=== PATIENT | female | born 1960 | race Caucasian/White ===

== ENCOUNTER → 2017-12-03 14:23 | Outpatient (CLI) | payer OTHER, MEDICARE, SELFPAY ==
--- NOTE | 2017-12-03 14:26 | DI.RAD.S_ITS ---
PROCEDURE: XR FOOT RT MIN 3V INDICATIONS: 56 year-old female with right foot and ankle injury on stairs. TECHNIQUE: 3 views of the foot were acquired. COMPARISON: None. FINDINGS: Bones: No fractures or dislocations. No suspicious bony lesions. Soft tissues: No tibiotalar joint effusion. Achilles tendon appears normal. IMPRESSION: No acute bony injuries of the right foot. Dictated by: Trip Bauer M.D. on 12/03/2017 at 14:48 Approved by: Trip Bauer M.D. on 12/03/2017 at 14:49
--- NOTE | 2017-12-03 14:26 | DI.RAD.S_ITS ---
PROCEDURE: XR ANKLE RT MIN 3V INDICATIONS: 56 year-old female with right ankle and foot injury on stairs. TECHNIQUE: 3 views of the ankle were acquired. COMPARISON: None. FINDINGS: Bones: No fractures or dislocations. Ankle mortise is normally aligned. No suspicious bony lesions. Soft tissues: No tibiotalar joint effusion. Achilles tendon appears normal. IMPRESSION: No acute bony injuries of the right ankle. Dictated by: Trip Bauer M.D. on 12/03/2017 at 14:47 Approved by: Trip Bauer M.D. on 12/03/2017 at 14:48
== END ==
PROVIDERS: Family Provider Physician Assistant; PCP Physician Assistant; Visit Provider Physician Assistant
DX: S99.911A Unspecified injury of right ankle, initial encounter (principal); S99.921A Unspecified injury of right foot, initial encounter; M79.671 Pain in right foot
CPT/HCPCS: 73610; 73630

== ENCOUNTER → 2017-12-29 16:48 | Outpatient (CLI) | payer OTHER, MEDICARE, SELFPAY ==
--- NOTE | 2017-12-29 17:03 | DI.MRI.S_ITS ---
PROCEDURE: MR FOOT RT WO CON INDICATIONS: Right foot injury/ pain TECHNIQUE: Noncontrast sagittal T1 spin echo and T2 fast spin echo with fat saturation, long-axis T1 spin echo and T2 fast spin echo with fat saturation, short-axis T1 spin echo and T2 fast spin echo with fat saturation through the forefoot. COMPARISON: None. FINDINGS: Image quality: Excellent. Bones and joints: There are nondisplaced radiographically occult fractures of the medial and lateral cuneiform. There is mild adjacent soft tissue edema. Marrow contusion of the base of the first metatarsal Soft tissues: Extensor digitorum longus tenosynovitis, and adjacent dorsal forefoot subcutaneous soft tissue swelling. The flexor tendons appear intact. IMPRESSION: Nondisplaced fractures of the medial and lateral cuneiform. Probable marrow contusion at the base of the first metatarsal, although if clinically indicated, CT foot could be performed to evaluate for additional subtle fractures. Extensor digitorum longus tenosynovitis, with adjacent dorsal forefoot subcutaneous soft tissue edema. Findings were personally telephoned to Deb Oakes, covering for the referring clinician Nerissa Childs on 12/30/17. Dictated by: Ariel Gonzalez M.D. on 12/30/2017 at 9:24 Approved by: Ariel Gonzalez M.D. on 12/30/2017 at 9:32
--- NOTE | 2017-12-29 17:03 | DI.MRI.S_ITS ---
PROCEDURE: MR ANKLE RT WO CON INDICATIONS: Right ankle injury TECHNIQUE: Noncontrast sagittal T1 spin echo and T2 fast spin echo with fat saturation, axial proton density fast spin echo and T2 fast spin echo with fat saturation, coronal T1 spin echo and T2 fast spin echo with fat saturation through the ankle/hindfoot. COMPARISON: [facility], CR, XR FOOT RT MIN 3V, 12/03/2017, 14:26. FINDINGS: Image quality: Excellent. Bones and joints: Radiographically occult nondisplaced fractures of the medial and lateral cuneiform, image 9 series 4, image 16 series 4. No hindfoot coalitions. No osteochondral injuries of the talar dome. There is subchondral marrow cystic change/edema involving the tibial plafond image 23 series data however indeterminate age. No pathologic joint effusions. Medial structures: The posterior tibialis, flexor digitorum longus, and flexor hallucis longus tendons are intact. There is mild fluid adjacent to the posterior tibialis tendon. The posterior tibial neurovascular bundle appears normal within the tarsal tunnel, without extrinsic mass effect. The deep layer (anterior and posterior tibiotalar ligaments) and superficial layer (tibionavicular, tibiospring, and tibiocalcaneal ligaments) of the deltoid ligament appear normal. The spring ligament components (superomedial calcaneonavicular, medioplantar oblique calcaneonavicular, and inferoplantar longitudinal ligaments) are intact. Lateral structures: The anterior talofibular ligament appears minimally thickened with adjacent soft tissue edema raising possibility of low-grade sprain. The calcaneofibular, and posterior talofibular ligaments appear intact. More superiorly, the anterior and posterior tibiofibular ligaments appear intact, as is the intermalleolar ligament. The tibiofibular syndesmosis is normal in width at 2 mm or less. The peroneus longus and brevis tendons demonstrate normal location and morphology. Adjacent bony peroneal tubercle and retrotrochlear prominence are normal in size. The sinus tarsi demonstrates normal fatty signal, without edema, fibrosis, or cyst formation. Visualized sinus tarsi components (cervical ligament, interosseous talocalcaneal ligament, roots of the inferior extensor retinaculum) appear normal. The calcaneonavicular and calcaneocuboid components of the bifurcate ligament appear intact. The dorsal calcaneocuboid ligament appears intact. Anterior structures: The tibialis anterior, extensor hallucis longus, and extensor digitorum longus tendons appear intact. There is fluid adjacent to the extensor digitorum longus tendon in keeping with tenosynovitis. The dorsal talonavicular ligament appears intact. Posterior and plantar structures: Achilles tendon is intact. Medial and lateral bands of the plantar fascia are of normal thickness. IMPRESSION: Nondisplaced fractures of the medial and lateral cuneiform. Posterior tibialis and extensor digitorum longus tenosynovitis. Low-grade sprain of the anterior talofibular ligament. Dictated by: Ariel Gonzalez M.D. on 12/30/2017 at 8:32 Approved by: Ariel Gonzalez M.D. on 12/30/2017 at 9:32
== END ==
PROVIDERS: Family Provider Physician Assistant; PCP Physician Assistant; Visit Provider Physician Assistant
DX: M79.671 Pain in right foot (principal); S92.224A Nondisplaced fracture of lateral cuneiform of right foot, initial encounter for closed fracture; S92.244A Nondisplaced fracture of medial cuneiform of right foot, initial encounter for closed fracture; S93.491A Sprain of other ligament of right ankle, initial encounter
CPT/HCPCS: 73718; 73721

== ENCOUNTER → 2018-01-06 12:15 | Outpatient (CLI) | payer OTHER, MEDICARE, SELFPAY ==
--- NOTE | 2018-01-06 12:43 | DI.CT.S_ITS ---
PROCEDURE: CT LE RT WO CON INDICATIONS: rt foot sprain, prior MR scanning showing nondisplaced fractures involving the first and third cuneiform bones. TECHNIQUE: Noncontrast 1-1.5 mm axial sections acquired from above the tibiotalar joint to the bottom of the calcaneus, with coronal and sagittal reformats. COMPARISON: [facility], MR, MR FOOT RT WO CON, 12/29/2017, 18:03. FINDINGS: Image quality: Excellent. Bones: Mild osteopenia. Mild degenerative osteoarthritic change at the first MTP joint and the tarsal-metatarsal articulations. At the lateral plantar aspect of the distal first tarsal bone there is a sharply demarcated lucency that appears angular, extending to the cortical surface, and represents the previously identified nondisplaced fracture of the first tarsal bone in that area. Fracture margin blurring indicates healing in this area, and a similar healing appears to have occurred at the third metatarsal bone where the fracture plane can no longer be discretely identified (but was visible during prior MR scanning 12/29/17). Significant displacement of osseous margins and is not associated in these areas or elsewhere. No adjacent hematoma is found. Soft tissues: No ligamentous rupture identified. Normal alignment maintained, and no coalition is found. IMPRESSION: Nondisplaced fracture appears present at the plantar lateral border of the distal first tarsal bone, subacute in this clinical circumstance. The previously identified third tarsal bone fracture seen 12/29/17 by MR scanning can no longer be discretely identified and oriented the fracture margins indicates mild interval healing. No new injury is found, no previously in injury is identified.. Dictated by: Johny Yee M.D. on 01/06/2018 at 16:34 Approved by: Johny Yee M.D. on 01/06/2018 at 16:44
== END ==
PROVIDERS: Family Provider Physician Assistant; PCP Physician Assistant; Visit Provider Family Medicine
DX: S92.201A Fracture of unspecified tarsal bone(s) of right foot, initial encounter for closed fracture (principal); S93.601A Unspecified sprain of right foot, initial encounter; M54.12 Radiculopathy, cervical region; M54.16 Radiculopathy, lumbar region; M54.10 Radiculopathy, site unspecified
CPT/HCPCS: 73700

== ENCOUNTER → 2018-05-19 20:04 | Outpatient (CLI) | payer OTHER, MEDICARE, SELFPAY | PROVIDERS: PCP Family Medicine; Visit Provider Orthopaedic Surgery Foot and Ankle Surgery | DX: S92.224D Nondisplaced fracture of lateral cuneiform of right foot, subsequent encounter for fracture with routine healing (principal); Z53.9 Procedure and treatment not carried out, unspecified reason ==

== ENCOUNTER → 2018-05-25 11:21 | Outpatient (CLI) | payer OTHER, MEDICARE, SELFPAY ==
--- NOTE | 2018-05-25 | DI.MRI.S_ITS ---
PROCEDURE: MR ANKLE RT WO CON INDICATIONS: NONDISPLACED FRACTURE TECHNIQUE: Noncontrast sagittal T1 spin echo and T2 fast spin echo with fat saturation, axial proton density fast spin echo and T2 fast spin echo with fat saturation, coronal T1 spin echo and T2 fast spin echo with fat saturation through the ankle/hindfoot. COMPARISON: [facility] [place], CR, XR FOOT 3+ VIEWS RIGHT, 05/17/2018, 10:18. [facility] [place], CR, XR FOOT 3+ VIEWS RIGHT, 03/11/2018, 12:58. [facility], CR, XR FOOT 3 VIEWS WEIGHT BEARING RIGHT, 02/03/2018, 11:30. [facility] [place], CR, XR FOOT 3 VIEWS WEIGHT BEARING RIGHT, 01/07/2018, 11:07. [facility], CT, CT LE RT WO CON, 01/06/2018, 12:24. [facility], MR, MR FOOT RT WO CON, 12/29/2017, 18:03. [facility], MR, MR ANKLE RT WO CON, 12/29/2017, 17:31. FINDINGS: Image quality: Diagnostic. Bones and joints: No acute fracture, dislocation, or suspicious osseous lesion is identified involving the osseous structures of the midfoot or hindfoot. No stress fractures are identified. Ankle mortise is well-maintained. No osteochondral fragments are identified. However, defect of the head articular cartilage along the central aspect of the mid and tibial plafond does identify with degenerative/reactive marrow changes. There are mild degenerative changes of the talonavicular joint. No significant joint effusions are evident. Medial structures: The deltoid ligament is intact. There is slight increased signal about the deltoid ligament. The spring ligament is within normal limits. The tibialis posterior, flexor digitorum longus, and flexor hallucis longus tendons are intact. There is a fluid contained within the tibialis posterior tendon sheath. The posterior tibial nerve through the region of the tarsal tunnel appears to be within normal limits. Lateral structures: The anterior and posterior distal tibiofibular ligaments are intact. The anterior and posterior talofibular ligaments are also intact. The calcaneofibular ligament is intact. There is flattening of the peroneus brevis tendon along the posterior margin of the lateral malleolus with a possible short segment longitudinal split tear near the tip of the lateral malleolus. There is slight increased signal evident involving the peroneus longus tendon without significant tearing. Anterior structures: The tibialis anterior, extensor hallucis longus, and extensor digitorum longus tendons appear intact. Posterior and plantar structures: Achilles tendon is intact. However, there is mild thickening along the proximal to midaspect of the Achilles tendon with slight increased signal present. Medial and lateral bands of the plantar fascia are of normal thickness. IMPRESSION: 1. No fractures are evident involving the right midfoot or hindfoot. 2. Mild degenerative changes of the tibiotalar and talonavicular joints. No osteochondral fragments. 3. Possible deltoid ligament sprain. 4. Mild tibialis posterior tenosynovitis. 5. Possible short segment longitudinal split tear of the peroneus brevis tendon at the tip of lateral malleolus with corresponding mild tendinopathy. The results in mild peroneus longus tendinopathy. 6. Mild Achilles tendinopathy. Dictated by: Harjit Ching M.D. on 05/25/2018 at 13:42 Approved by: Harjit Ching M.D. on 05/25/2018 at 13:46
== END ==
PROVIDERS: PCP Family Medicine; Visit Provider Orthopaedic Surgery Foot and Ankle Surgery
DX: S92.224A Nondisplaced fracture of lateral cuneiform of right foot, initial encounter for closed fracture (principal); M19.071 Primary osteoarthritis, right ankle and foot; M65.862 Other synovitis and tenosynovitis, left lower leg
CPT/HCPCS: 73721

== ENCOUNTER → 2018-10-14 12:07 | Outpatient (CLI) | payer OTHER, MEDICARE, SELFPAY ==
--- NOTE | 2018-10-14 12:10 | DI.RAD.S_ITS ---
PROCEDURE: XR CERVICAL SPINE 4V OR 5V INDICATIONS: Eval TECHNIQUE: 5 views of the cervical spine acquired. COMPARISON: None. FINDINGS: Bones: No fractures or dislocations to the C6 level. C4-C6 ACDF appears in expected postoperative alignment. No evidence of hardware loosening. Multilevel facet arthropathy. Mild narrowing of the C3-C4 disc space. There is also moderate C6-C7 disc degeneration. On the right, mild bony foraminal narrowing primarily at C6-C7, and C3-C4 On the left, mild C6-C7 bony foraminal narrowing. IMPRESSION: Expected postoperative alignment of C4-C6 ACDF. Mild C3-C4 disc degeneration. Moderate C6-C7 disc degeneration. Diffuse facet arthropathy. Dictated by: Ariel Gonzalez M.D. on 10/14/2018 at 14:47 Approved by: Ariel Gonzalez M.D. on 10/14/2018 at 14:49
== END ==
PROVIDERS: PCP Family Medicine; Visit Provider Physical Medicine & Rehabilitation
DX: M50.11 Cervical disc disorder with radiculopathy, high cervical region (principal); M47.22 Other spondylosis with radiculopathy, cervical region; M48.02 Spinal stenosis, cervical region; Z98.1 Arthrodesis status
CPT/HCPCS: 72050; 99214

== ENCOUNTER → 2018-10-17 19:25 | Outpatient (CLI) | payer OTHER, MEDICARE, SELFPAY ==
--- NOTE | 2018-10-17 19:29 | DI.MRI.S_ITS ---
PROCEDURE: MR CERVICAL SPINE WO CON INDICATIONS: NECK PAIN TECHNIQUE: Noncontrast sagittal T1 spin echo and T2 fast spin echo, sagittal STIR, foraminal oblique sagittal T2 fast spin echo, and axial gradient echo or T2 fast spin echo through the cervical spine. COMPARISON: [facility], CR, XR CERVICAL SPINE 4V OR 5V, 10/14/2018, 12:16. FINDINGS: Image quality: Excellent. Alignment and Curvature: There is normal bony alignment. Remote ACDF at C4-C6 with anterior plate and screw fixation and interbody bone graft material. Interbody fusion is successful. There is no evidence of hardware failure or loosening. Bone Marrow: Marrow demonstrates normal overall signal. Spinal Cord: Visualized spinal cord has normal size and signal. No cerebellar tonsillar herniation. Paraspinous Soft Tissues: No paravertebral masses. Prevertebral soft tissues are normal in thickness. C2-C3: No canal stenosis or foraminal stenosis. Bilateral facet hypertrophy, right greater than left. C3-C4: Diffuse posterior disc less osteophyte. Axial image over estimates canal stenosis secondary to metal artifact. Diffuse posterior disc plus osteophyte. Canal stenosis is likely mild to moderate. Bilateral uncovertebral joint hypertrophy results in severe left foraminal narrowing and moderate right foraminal narrowing. Bilateral facet hypertrophy. C4-C5: Fusion. No canal stenosis or significant foraminal stenosis. C5-C6: Fusion. No canal stenosis or significant foraminal stenosis. C6-C7: Mild probable canal stenosis. Severe right foraminal narrowing. Moderate left foraminal narrowing. C7-T1: No canal stenosis or foraminal stenosis. IMPRESSION: 1. Remote ACDF at C4-C6 2. At C3-C4, there is canal stenosis which is likely mild to moderate. There is severe left foraminal narrowing and moderate right foraminal narrowing. 3. At C6-C7, there is probable mild canal stenosis. There is severe right foraminal narrowing and moderate left foraminal narrowing. Dictated by: Van Oneal M.D. on 10/18/2018 at 13:11 Approved by: Van Oneal M.D. on 10/18/2018 at 15:21
== END ==
PROVIDERS: PCP Family Medicine; Visit Provider Physical Medicine & Rehabilitation
DX: M54.12 Radiculopathy, cervical region (principal); M48.02 Spinal stenosis, cervical region; Z98.1 Arthrodesis status
CPT/HCPCS: 72141

== ENCOUNTER → 2019-01-10 11:41 | Outpatient (CLI) | payer OTHER, MEDICARE, SELFPAY ==
[2019-01-10 12:04] LABS: RBC Urine None Seen (0-5/HPF)
[2019-01-10 12:31] LABS: Add Manual Diff / Slide Review NO; Basophils Absolute Auto 0 /uL (0-100); Basophils Percent Auto 0.6 % (0-2); Eosinophils Absolute Auto 400 /uL (0-450); Eosinophils Percent Auto 5.1 % (2-4); Hematocrit 41.4 % (36-46); Hemoglobin 14.3 g/dL (12.0-16.0); Lymphocytes Absolute Auto 2000 /uL (1100-4500); Lymphocytes Percent Auto 27.1 % (25-40); Mean Corpuscular HGB Conc 34.5 % (30-36); Mean Corpuscular Hemoglobin 29.9 PG (26-34); Mean Corpuscular Volume 86.8 fL (80-100); Monocytes Absolute Auto 500 /uL (0-900); Neutrophils Absolute Auto 4400 /uL (1500-7000); Neutrophils Percent Auto 60.2 % (50-75); Platelet Count 212 X10^3/uL (150-400); Red Blood Cell Count 4.76 X10^6/uL (4.0-5.2); Red Cell Distribution Width 12.7 % (11.6-14.8); White Blood Cell Count 7.3 X10^3/uL (4.5-11.0)
[2019-01-10 12:40] LABS: Alanine Aminotransferase 32 IU/L (9-52); Albumin 4.1 g/dL (3.5-5.0); Albumin Globulin Ratio 1.5 (1.0-2.8); Alkaline Phosphatase 85 U/L (38-126); Aspartate Aminotransferase 28 IU/L (14-36); BUN Creatinine Ratio 25.7 (6-22); Bilirubin Total 0.5 mg/dL (0.2-1.3); Blood Urea Nitrogen 18 mg/dL (7-17); Calcium 10.1 mg/dL (8.4-10.2); Carbon Dioxide 30 mmol/L (22-32); Chloride 102 mmol/L (98-107); Cholesterol 236 mg/dL (140-199); Estimated Glomerular Filt Rate > 60.0 mL/min (>60); Globulin 2.7 g/dL (1.7-4.1); Glucose 98 mg/dL (70-100); HDL Cholesterol 53 mg/dL (40-60); HEMOLYSIS < 15 (0-50); Potassium 3.3 mmol/L (3.4-5.1); Sodium 140 mmol/L (137-145); Total Protein 6.8 g/dL (6.3-8.2); Triglycerides 416 mg/dL (35-150)
[2019-01-10 12:49] LABS: Appearance Urine UA CLEAR; Bilirubin Urine UA NEGATIVE (NEGATIVE); Color Urine UA YELLOW; Glucose Urine UA NEGATIVE (Negative); Ketones Urine UA NEGATIVE (NEGATIVE); Leukocyte Esterase Urine UA NEGATIVE (NEGATIVE); Nitrite Urine UA NEGATIVE (Negative); Occult Blood Urine UA NEGATIVE (Negative); Protein Urine UA NEGATIVE (Negative); Urobilinogen Urine UA 0.2 E.U./dL (0.2); pH Urine UA 6.5 (4.5-8.0)
[2019-01-10 13:06] LABS: Amorphous Sediment Urine 1+; Bacteria Urine Occasional (0-1); Culture Indicated Urine Cult Not Indicated; Mucus Urine 2+ (Negative); Squamous Epithelial Cell Urine 0-1 /HPF (0-5/HPF); WBC Urine 0-1/HPF (0-5/HPF)
[2019-01-10 13:41] LABS: Thyroid Stimulating Hormone 3.05 uIU/mL (0.47-4.68)
== END ==
PROVIDERS: PCP Family Medicine; Visit Provider Family Medicine
DX: E78.00 Pure hypercholesterolemia, unspecified (principal); I10 Essential (primary) hypertension; Z00.00 Encounter for general adult medical examination without abnormal findings
CPT/HCPCS: 36415; 80053; 80061; 81001; 84443; 85025

== ENCOUNTER 2019-01-19 09:50 | Outpatient (CLI) | payer OTHER, MEDICARE, SELFPAY ==
[2019-01-19] VITALS (12 sets, daily range): BP systolic 106–149; BP diastolic 65–104; PULSE 66–83; RESP 16–20; TEMP 36.2; O2SAT 96–100
--- NOTE | 2019-01-19 09:53 | DI.RAD.S_ITS ---
PROCEDURE: PAIN C/T INTERLAMINAR INJECT INDICATIONS: CERVICAL STENOSIS FINDINGS: Fluoroscopic spot filming was performed to verify placement of spinal needles at the C6-C7 level(s), as labeled on the films. Appropriate location(s) of the needle tip(s) was confirmed by injection of iodinated contrast. Dictated by: Ariel Gonzalez M.D. on 01/19/2019 at 12:52 Approved by: Ariel Gonzalez M.D. on 01/19/2019 at 12:53
[2019-01-19] MEDS: fentaNYL 100 MCG/2 ML INJ 50 MCG IV (10:30)
[2019-01-19] MEDS: MIDAZOLAM 5 MG/5 ML VIAL IV (10:30)
[2019-01-19] MEDS: DEXAMETHASONE 10 MG/ML VIAL 30 MG INJ (10:39)
[2019-01-19] MEDS: LIDOCAINE 1% 20 ML INJ 5 ML INJ (10:39)
[2019-01-19] MEDS: IOPAMIDOL 15 ML VIAL 3 ML INJ (10:39)
--- NOTE | 2019-01-19 10:43 | PC.NURSE ---
pt tolerated procedure well. Able to get off table with 2 person standby assist. Transferred pt via wheelchair to pre procedure room for continued monitoring with Prudencio LAZAR.
--- NOTE | 2019-01-19 10:45 | P.PCN_ITS ---
Procedures Date/Time Date of procedure: 01/19/19 Time of procedure: 10:43 General Procedure description: PREOP DIAGNOSIS 1. CERVICAL STENOSIS, 2. CERVICAL HNP WITH UPPER EXTREMITY RADICULAR FEATURES, POST OP DIAGNOSIS 1. CERVICAL STENOSIS, 2. CERVICAL HNP WITH UPPER EXTREMITY RADICULAR FEATURES, PROCEDURES 1. FLUORSCOPICALLY GUIDED CONTRAST CONTROLLED INTERLAMINAR EPIDURAL STEROID INJECTION - C6/7 TL JOSE LUIS PHYSICIAN: Soy Tello, INDICATIONS Lilia is referred by Aixa Olsen for treatment of Cervical HNP with Upper Extremity Paresthesias. FINDINGS Cervical Stenosis due to disc deterioration and nerve root irritation and nerve root irritation DESCRIPTION OF PROCEDURE Fluoroscopically guided, contrast-controlled C6/7 translaminar epidural steroid injection with conscious sedation. Following review of allergy and review of potential side effects and complications, including, but not necessarily limited to, infection, allergic reaction, local tissue breakdown, temporary as well as permanent nerve injury, stroke, paralysis, and possible , the patient indicated that patient understood and agreed to proceed. An informed consent document was signed by the patient, witnessed by a nurse, and placed in the patient's chart. Additionally, other treatment options including modalities, medications, and physical therapy were reviewed with the patient. After review of previous anaesthesic history and IV conscious sedation the patient was deemed safe to proceed with todays procedure with IV conscious sedation as ASA class II designation. Safety time-out was performed to confirm patient ID, procedure to be performed and site of procedure. IV sedation was accomplished with a combination of 2mg of Versed and 50 mg of fentanyl administered by the RN after DO order, titrated to patient comfort during the course of the procedure while the patient remained responsive to all verbal commands. In the prone position, following sterile prep and drape of the cervical region, the C6/7 translaminar space was identified fluoroscopically. The skin was anesthetized via a 25-gauge 1.5-inch needle with 1% lidocaine solution. At this point, a 25-gauge, 2.5-inch short bevel spinal needle was atraumatically intr oduced and advanced under fluoroscopic guidance into epidural space at the C6/7 translaminar space. Depth was confirmed on lateral view. Radiological data, including multiple fluoroscopic views of the cervical spine, reveal a spinal needle at the C6/7 translaminar space. Lateral views then show placement of the needle in the epidural space. Subsequent views show contrast material flowing superiorly and inferiorly in the epidural space. DSA fluoroscopy with live contrast injection, once again, confirmed no vascular or intrathecal uptake. At this point, using loss of resistance technique with saline and air, the epidural space was entered. Following negative aspiration, injection of approximately 1.5 cc of Isovue-200 with live fluoroscopy in the AP view confirmed epidural flow in the epidural space without vascular or intrathecal uptake observed. Subsequently, a test dose of 1 cc of 1% lidocaine solution was injected and patient was observed for two minutes without signs or symptoms of complications, including abdominal pain, shortness of breath, bilateral upper or lower extremity weakness, nausea and vomiting, prior to steroid injection. At this point, 3cc or 30mg of dexamethasone was then injected without incident. The patient tolerated the procedure well without signs or symptoms of complications prior to being transferred to the recovery area for further monitoring, The patient was then transferred to the recovery area where they were observed for an appropriate period of time after the injection. The patient reported a VAS score of 6 prior to the procedure and a post-procedure VAS of 0. Total Fluoroscopy Time: 37.0 seconds Total Conscious Time: 24min POST OP INSTRUCTIONS The patient was provided a Pain Log to continue to record their response to the target-specific procedure prior to follow-up visit with the referring provider. Additionally, specific post-injection care instructions and a contact number to our office were provided if concerns arise regarding possible complications associated with the procedure are suspected. Soy Tello DO Complications: none
== END 2019-01-19 11:25 ==
LOC: RAD 09:52
PROVIDERS: PCP Family Medicine; Visit Provider Physical Medicine & Rehabilitation
DX: M48.02 Spinal stenosis, cervical region (principal); M50.123 Cervical disc disorder at C6-C7 level with radiculopathy
CPT/HCPCS: 62321; 99152; J1100; J2250; J3010

== ENCOUNTER 2019-05-02 10:24 | Outpatient (CLI) | payer OTHER, MEDICARE, SELFPAY ==
[2019-05-02] VITALS (8 sets, daily range): BP systolic 116–138; BP diastolic 81–93; PULSE 82–93; RESP 16–18; TEMP 36.1; O2SAT 95–100
--- NOTE | 2019-05-02 10:27 | DI.RAD.S_ITS ---
PROCEDURE: PAIN C/T FACET INJ/BLK 1ST L INDICATIONS: SPINAL STENOSIS FINDINGS: Fluoroscopic spot filming was performed to verify placement of spinal needles at the C3-C4 level(s), as labeled on the films. Appropriate location(s) of the needle tip(s) was confirmed by injection of iodinated contrast. IMPRESSION: Fluoroscopy for pain management. Dictated by: Mya Hernandez M.D. on 05/02/2019 at 14:44 Approved by: Mya Hernandez M.D. on 05/02/2019 at 14:44
--- NOTE | 2019-05-02 11:03 | P.PCN_ITS ---
Procedures Date/Time Date of procedure: 05/02/19 Time of procedure: 11:03 General Procedure description: PREOP DIAGNOSIS 1. FACET ARTHROPATHY 2. AXIAL NECK PAIN POST OP DIAGNOSIS 1. FACET ARTHROPATHY 2. AXIAL NECK PAIN PROCEDURES 1. FLUOROSCOPICALLY GUIDED, CONTRAST-CONTROLLED RIGHT C3/4 FACET JOINT INJECTION WITH CONSCIOUS SEDATION PHYSICIAN: Soy Tello, DO INDICATIONS Lilia is referred by Dr. Kruse for treatment of Axial Neck Pain DESCRIPTION OF PROCEDURE Fluoroscopically guided, contrast-controlled right C3/4 facet joint injections with conscious sedation. Following review of allergy and review of potential side effects and complications, including, but not necessarily limited to, infection, allergic reaction, local tissue breakdown, stroke, temporary or permanent nerve injury and paralysis, the patient indicated that the patient understood and agreed to proceed. An informed consent document was signed by the patient, witnessed by a nurse, and placed in the patient's chart. Additionally, other treatment options including medications, modalities, and physical therapy were reviewed with the patient. After review of previous anaesthesic history and IV conscious sedation the patient was deemed safe to proceed with todays procedure with IV conscious sedation as ASA class II designation. Safety time-out was performed to confirm patient ID, procedure to be performed and site of procedure. IV sedation was accomplished with a combination of 3mg of Versed and 50mcg of Fentanyl was administered by the RN after DO order, titrated to patient comfort during the course of the procedure while the patient remained responsive to all verbal commands In the prone position, following sterile prep and drape of the cervical spine region, the posterior aspect of the right C3/4 facet joints were identified f luoroscopically. The skin was anesthetized via a 25-gauge 1.5-inch needle with 1% lidocaine solution into the corresponding facet joints. At this point, a 25- gauge 2.5-inch spinal needle was atraumatically introduced and advanced under fluoroscopic guidance into the corresponding facet joints. Following negative aspiration, injections of approximately 0.2-cc of Isovue 200 confirmed interarticular placement without vascular uptake. At this point, a total of 1cc including 0.5cc or 5mg of dexamethasone combined with 0.5cc of 1% lidocaine solution was injected without complication into each of the corresponding facet joints. The procedure tolerated the procedure well without signs or symptoms of complications prior to transfer to the recovery area continued monitoring without incident. The patient was then transferred to the recovery area where they were observed for an appropriate period of time after the injection. The patient reported a VAS score of 7 prior to the procedure and a post- procedure VAS of 0. Total Fluoroscopy Time: 20.5 seconds Total Conscious Sedation Time: 24 min POST OP INSTRUCTIONS They were provided a Pain Log to continue to record their response to the target-specific procedure prior to their follow-up visit with their referring physician. Additionally, specific post-injection care instructions and a contact number to our office were provided if concerns arise regarding possible complications associated with the procedure are suspected. Soy Tello, Complications: none
[2019-05-02] MEDS: fentaNYL 100 MCG/2 ML INJ 50 MCG IV (11:32)
[2019-05-02] MEDS: MIDAZOLAM 5 MG/5 ML VIAL IV (11:32)
[2019-05-02] MEDS: IOPAMIDOL 15 ML VIAL 3 ML INJ (11:42)
[2019-05-02] MEDS: BUPIVACAINE 0.5% (PF) VIAL 2 ML INJ (11:43)
[2019-05-02] MEDS: DEXAMETHASONE 10 MG/ML VIAL INJ (11:43)
--- NOTE | 2019-05-02 11:47 | PC.NURSE ---
ASSISTING PT OFF TABLE AND TRANSPORTING TO POST PROC AREA IN STABLE CONDITION. PASSING RN CARE OF PT OFF TO LA NENA Santoro RN.
--- NOTE | 2019-05-02 12:19 | PC.NURSE ---
Discharge note: Pateint arrive post procedure drowsy but awake and responding appropriately to verbal commands. VSS, O2 sat WNL on RA. tolerating po without nausea. Pain level at time of discharge 0/10. Mild weakness to lower extremities from sedation. Able to stand and transfer to wheelchair without difficulties. Discharge instructions given and explained to patient and son with good understanding. Discharged to home. WC to car at 1215.
== END 2019-05-02 12:15 ==
PROVIDERS: Family Provider Family Medicine; PCP Family Medicine; Visit Provider Physical Medicine & Rehabilitation
DX: M47.812 Spondylosis without myelopathy or radiculopathy, cervical region (principal); M54.2 Cervicalgia
CPT/HCPCS: 64490; 99152; J1100; J2250; J3010

== ENCOUNTER → 2019-05-22 12:57 | Outpatient (CLI) | payer OTHER, MEDICARE, SELFPAY ==
[2019-05-22 14:03] LABS: Alanine Aminotransferase 58 IU/L (<35); Albumin 4.3 g/dL (3.5-5.0); Albumin Globulin Ratio 1.9 (1.0-2.8); Alkaline Phosphatase 103 U/L (38-126); Aspartate Aminotransferase 47 IU/L (14-36); BUN Creatinine Ratio 22.5 (6-22); Bilirubin Total 0.6 mg/dL (0.2-1.3); Blood Urea Nitrogen 18 mg/dL (7-17); Calcium 9.8 mg/dL (8.4-10.2); Carbon Dioxide 28 mmol/L (22-32); Chloride 103 mmol/L (98-107); Cholesterol 180 mg/dL (140-199); Estimated Glomerular Filt Rate > 60.0 mL/min (>60); Globulin 2.3 g/dL (1.7-4.1); Glucose 109 mg/dL (70-100); HDL Cholesterol 55 mg/dL (40-60); HEMOLYSIS < 15 (0-50); LDL Cholesterol Calculated 78 mg/dL (<100); Potassium 3.7 mmol/L (3.4-5.1); Sodium 140 mmol/L (137-145); Total Protein 6.6 g/dL (6.3-8.2); Triglycerides 234 mg/dL (35-150)
== END ==
PROVIDERS: PCP Family Medicine; Visit Provider Family Medicine
DX: E78.5 Hyperlipidemia, unspecified (principal); I10 Essential (primary) hypertension
CPT/HCPCS: 36415; 80053; 80061

== ENCOUNTER 2019-05-23 12:40 | Emergency (ER) | payer OTHER, MEDICARE, SELFPAY ==
[2019-05-23 12:52] VITALS: BP 192/132; PULSE 92; RESP 18; TEMP 36.7; O2SAT 100; BMI 22.5
--- NOTE | 2019-05-23 13:05 | DI.RAD.S_ITS ---
PROCEDURE: XR CHEST 1V INDICATIONS: cough TECHNIQUE: One view of the chest was acquired. COMPARISON: [facility], , CHEST 2 VIEW, 05/18/2009, 10:00. FINDINGS: Surgical changes and devices: Right breast implant Lungs and pleura: Lungs are clear. No pleural effusions or pneumothorax. Mediastinum: Mediastinal contours appear normal. Heart size is normal. Bones and chest wall: No suspicious bony lesions. Overlying soft tissues appear unremarkable. IMPRESSION: No evidence acute pulmonary process. Dictated by: Van Oneal M.D. on 05/23/2019 at 13:51 Approved by: Van Oneal M.D. on 05/23/2019 at 13:52
[2019-05-23 13:16] LABS: Add Manual Diff / Slide Review NO; Basophils Absolute Auto 100 /uL (0-100); Basophils Percent Auto 0.9 % (0-2); Eosinophils Absolute Auto 500 /uL (0-450); Eosinophils Percent Auto 7.7 % (2-4); Hematocrit 42.6 % (36-46); Hemoglobin 14.9 g/dL (12.0-16.0); Lymphocytes Absolute Auto 1800 /uL (1100-4500); Lymphocytes Percent Auto 25.8 % (25-40); Mean Corpuscular HGB Conc 34.9 % (30-36); Mean Corpuscular Hemoglobin 30.4 PG (26-34); Mean Corpuscular Volume 87.2 fL (80-100); Monocytes Absolute Auto 500 /uL (0-900); Monocytes Percent Auto 7.1 % (3-14); Neutrophils Absolute Auto 4100 /uL (1500-7000); Neutrophils Percent Auto 58.5 % (50-75); Platelet Count 276 X10^3/uL (150-400); Red Blood Cell Count 4.89 X10^6/uL (4.0-5.2); Red Cell Distribution Width 12.6 % (11.6-14.8)
[2019-05-23 13:23] LABS: Alanine Aminotransferase 72 IU/L (<35); Albumin 4.8 g/dL (3.5-5.0); Albumin Globulin Ratio 1.7 (1.0-2.8); Alkaline Phosphatase 123 U/L (38-126); Aspartate Aminotransferase 78 IU/L (14-36); BUN Creatinine Ratio 24.3 (6-22); Bilirubin Total 0.7 mg/dL (0.2-1.3); Blood Urea Nitrogen 17 mg/dL (7-17); Calcium 10.2 mg/dL (8.4-10.2); Carbon Dioxide 29 mmol/L (22-32); Chloride 96 mmol/L (98-107); Creatine Kinase 71 U/L (30-135); Estimated Glomerular Filt Rate > 60.0 mL/min (>60); Globulin 2.8 g/dL (1.7-4.1); Glucose 110 mg/dL (70-100); HEMOLYSIS 30 (0-50); Lipase 268 U/L (23-300); Potassium 3.6 mmol/L (3.4-5.1); Sodium 135 mmol/L (137-145); Total Protein 7.6 g/dL (6.3-8.2)
[2019-05-23 13:30] VITALS: BP 154/122; PULSE 82; RESP 12; O2SAT 99
[2019-05-23 13:34] LABS: Troponin I < 0.012 ng/mL (0.01-0.034)
--- NOTE | 2019-05-23 13:36 | ED_ITS ---
HPI - General Adult General Chief complaint: Hypertension Stated complaint: high BP, states triple digits Time Seen by Provider: 05/23/19 12:52 Source: patient Mode of arrival: Ambulatory Limitations: no limitations History of Present Illness HPI narrative: Patient is a 58-year-old female sent in by her PCP for elevated blood pressure. She has actually noticed that her diastolic has been slightly elevated for a few weeks however today it is over 100. She has a slight headache but that is not abnormal for her she continues to have headaches fairly regularly due to a pinched nerves in her neck. She has no chest pain or heart palpitation shortness of breath nausea vomiting weakness numbness or tingling. She takes carvedilol, hydrochlorothiazide and losartan for blood pressure control. Related Data Home Medications Medication Instructions Recorded Confirmed atorvastatin 40 mg PO QPM 05/23/19 05/23/19 hydrochlorothiazide 25 mg PO DAILY 05/23/19 05/23/19 losartan 100 mg PO DAILY 05/23/19 05/23/19 trazodone 100 mg PO BEDTIME 05/23/19 05/23/19 Previous Rx's Medication Instructions Recorded carvedilol 6.25 mg tablet 6.25 mg PO BID #180 tab 12/19/18 Handicap parking sticker #1 ea 01/27/19 cyclobenzaprine 10 mg tablet 10 mg PO TID PRN #30 tab 01/31/19 albuterol sulfate 90 mcg/actuation 2 puff INHALATION Q4-6H PRN #6.7 02/21/19 aerosol inhaler gram lidocaine 5 % topical patch 1 patch TOP DAILY #30 each 03/01/19 venlafaxine 75 mg capsule,extended 225 mg PO DAILY #60 cap 04/14/19 release 24 hr oxycodone-acetaminophen 5 mg-325 1 tab PO BID PRN #60 tab 05/05/19 mg tablet diazepam 10 mg tablet 10 mg PO .COMPLEX PRN 7 Days #10 05/22/19 tab pregabalin 50 mg capsule 50 mg PO BID #60 cap 05/22/19 carvedilol [Coreg] 12.5 mg PO BID #60 tab 05/23/19 Allergies Allergy/AdvReac Type Severity Reaction Status Date / Time No Known Drug Allergies Allergy Verified 05/22/19 13:35 Review of Systems Review of Systems Narrative: GENERAL: Denies chills, fatigue, malaise, fever, sweats, travel HEENT: Denies sinus pain, ear pain, sore throat, difficulty swallowing, neck pain RESPIRATORY: Denies dyspnea, cough, wheezing, hemoptysis, sputum. CARDIOVASCULAR: Denies chest pain, palpitations, orthopnea, edema GASTROINTESTINAL: Denies nausea, vomiting, abdominal pain, diarrhea, constipation, melena. : Denies dysuria, frequency, incontinence, hematuria, urinary retention, flank pain. MUSCULOSKELETAL: Denies weakness, joint pain, or bony pain SKIN: No rash, no erythema, no pruritus NEUROLOGIC: Denies weakness, dizziness, headache, numbness, change in speech, confusion PSYCHIATRIC: No concerning psychosocial issues. 12 point review of systems is negative except for those stated above and HPI Patient History Medical History Depression (Chronic Unknown) Depression (Acute) Generalized anxiety disorder with panic attacks (Acute) Hyperlipemia (Chronic Unknown) Hypertension (Chronic Unknown) Post-traumatic stress disorder, chronic (Acute) Surgical History History of total abdominal hysterectomy and bilateral salpingo-oophorectomy (Resolved ~1992) Hx of neck surgery (Resolved Unknown) Family History Mother Hypertension Social History Smoking Status: Never smoker alcohol intake: current (Occasionally) substance use type: does not use alcohol intake frequency: 0-2 drinks per day Substance Use Type: does not use Exam Initial Vital Signs Initial Vital Signs: Vital Signs Temperature 98.1 F 05/23/19 12:52 Pulse Rate 92 H 05/23/19 12:52 Respiratory Rate 18 05/23/19 12:52 Blood Pressure 192/132 H 05/23/19 12:52 Pulse Oximetry 100 05/23/19 12:52 GENERAL: Well-appearing, well-nourished and in no acute distress. HEENT: Head atraumatic,EOMI, pupils reactive, face symmetric, moist mucous membranes CARDIOVASCULAR: Regular rate and rhythm without murmurs, rubs or gallops. RESPIRATORY: Breath sounds equal bilaterally, no wheezes rales or rhonchi. ABDOMEN: Soft, nontender. Normoactive bowel sounds all 4 quadrants. No guarding or rebound. : No CVA tenderness EXTREMITIES: Normal range of motion, no clubbing or edema. Neurovascularly intact NEUROLOGICAL: Alert and oriented x4.Normal gait and speech. SKIN: Warm, dry, no laceration, no petechiae, no rashes or lesions. Scores NIH Stroke Scale Level of Conciousness: Alert, keenly responsive Ask month/age: Answers both questions correctly. Open/close eyes, close hand: Performs both tasks correctly Best gaze horizontal: Normal Visual murrell: No visual loss Facial palsy: Normal symetrical movement Left arm drift: No drift for full 10 sec Right arm drift: No drift for full 10 sec Left leg drift: No drift for full 10 sec Right leg drift: No drift for full 10 sec Limb ataxia: Absent Sensory on face/arms/legs: Normal, no sensory loss Best language: No aphasia, normal Dysarthria: Normal Extinction or inattention: No abnormality Total NIH Stroke scale score: 0 Course Orders Ordered: ED Orders 05/23/19 13:02 Complete Blood Count AUTO DIFF Stat Comprehensive Metabolic Panel Stat Lipase Stat Troponin & CK Cardiac Panel Stat 05/23/19 13:05 XR chest 1V Stat 05/23/19 14:34 CT head/brain wo con Stat Discontinued Medications Amlodipine Besylate (Norvasc) 5 mg PO NOW ONE Stop: 05/23/19 13:44 Last Admin: 05/23/19 13:52 Dose: 5 mg Documented by: ALYSIA Ketorolac Tromethamine (Toradol) 15 mg IV NOW ONE Stop: 05/23/19 15:09 Last Admin: 05/23/19 15:13 Dose: 15 mg Documented by: BTBRIAN Consultations Consultation #1: Dr. Lujan-updated in patient's persistently elevated diastolic blood pressure recommends increasing Coreg. Time: 15:12 Vital Signs Vital signs: Vital Signs - 8 hr 05/23/19 12:52 05/23/19 13:30 05/23/19 14:00 Temperature 98.1 F Pulse Rate 92 H 82 82 Respiratory Rate 18 12 19 Blood Pressure 192/132 H Blood Pressure [Right Arm] 154/122 H 178/118 H Pulse Oximetry 100 99 98 05/23/19 15:00 Temperature Pulse Rate 90 Respiratory Rate 16 Blood Pressure Blood Pressure [Right Arm] 169/122 H Pulse Oximetry 100 Medical Decision Making Lab Data Lab results reviewed: Yes I reviewed the patient's lab results. Result diagrams: 05/23/19 13:02 05/23/19 13:02 Labs: Lab Results 05/23/19 05/23/19 Range/Units 13:02 13:02 WBC 7.0 (4.5-11.0) X10^3/uL RBC 4.89 (4.0-5.2) X10^6/uL Hgb 14.9 (12.0-16.0) g/dL Hct 42.6 (36-46) % MCV 87.2 (80-100) fL MCH 30.4 (26-34) PG MCHC 34.9 (30-36) % RDW 12.6 (11.6-14.8) % Plt Count 276 (150-400) X10^3/uL Neut % (Auto) 58.5 (50-75) % Lymph % (Auto) 25.8 (25-40) % [place] % (Auto) 7.1 (3-14) % Eos % (Auto) 7.7 H (2-4) % Baso % (Auto) 0.9 (0-2) % Neut # (Auto) 4100 (0777-4214) /uL Lymph # (Auto) 1800 (1827-1078) /uL [place] # (Auto) 500 (0-900) /uL Eos # (Auto) 500 H (0-450) /uL Baso # (Auto) 100 (0-100) /uL Sodium 135 L (137-145) mmol/L Potassium 3.6 (3.4-5.1) mmol/L Chloride 96 L (98-107) mmol/L Carbon Dioxide 29 (22-32) mmol/L BUN 17 (7-17) mg/dL Creatinine 0.70 (0.52-1.04) mg/dL Estimated GFR > 60.0 (>60) mL/min BUN/Creatinine Ratio 24.3 H (6-22) Glucose 110 H (70-100) mg/dL Calcium 10.2 (8.4-10.2) mg/dL Total Bilirubin 0.7 (0.2-1.3) mg/dL AST 78 H (14-36) IU/L ALT 72 H (<35) IU/L Alkaline Phosphatase 123 (38-126) U/L Total Creatine Kinase 71 (30-135) U/L CK-MB (CK-2) TNP CK-MB (CK-2) Rel Index TNP Troponin I < 0.012 (0.01-0.034) ng/mL Total Protein 7.6 (6.3-8.2) g/dL Albumin 4.8 (3.5-5.0) g/dL Globulin 2.8 (1.7-4.1) g/dL Albumin/Globulin Ratio 1.7 (1.0-2.8) Lipase 268 (23-300) U/L Urine Dip Bedside Urine Glucose Negative Bedside Urine Bilirubin - Negative Bedside Urine Ketone - Negative Urine Specific [place] 1.015 Bedside Urine Occult Blood - Negative Bedside Urine pH 6.5 Bedside Urine Protein - Negative Bedside Urine Urobilinogen - Negative Bedside Urine Nitrite - Negative Bedside Urine Leukocytes +++ 500 Esterase Point of care testing: Urine Dip Bedside Urine Glucose Negative Bedside Urine Bilirubin - Negative Bedside Urine Ketone - Negative Urine Specific [place] 1.015 Bedside Urine Occult Blood - Negative Bedside Urine pH 6.5 Bedside Urine Protein - Negative Bedside Urine Urobilinogen - Negative Bedside Urine Nitrite - Negative Bedside Urine Leukocytes +++ 500 Esterase Imaging Data Chest x-ray: Radiologist's impression: PROCEDURE: XR CHEST 1V INDICATIONS: cough TECHNIQUE: One view of the chest was acquired. COMPARISON: [facility], CHEST 2 VIEW, 05/18/2009, 10:00. FINDINGS: Surgical changes and devices: Right breast implant Lungs and pleura: Lungs are clear. No pleural effusions or pneumothorax. Mediastinum: Mediastinal contours appear normal. Heart size is normal. Bones and chest wall: No suspicious bony lesions. Overlying soft tissues appear unremarkable. IMPRESSION: No evidence acute pulmonary process. Dictated by: Van Oneal M.D. on 05/23/2019 at 13:51 CT scan - head: Radiologist's impression: PROCEDURE: CT HEAD/BRAIN WO CON INDICATIONS: hypertension and headache TECHNIQUE: Noncontrast 4.5 mm thick angled axial sections acquired from the foramen magnum to the vertex, with coronal and sagittal reformats. For radiation dose reduction, the following was used: automated exposure control, adjustment of mA and/or kV according to patient size. COMPARISON: None. FINDINGS: Image quality: Excellent. CSF spaces: Basal cisterns are patent. No extra-axial fluid collections. Kelvin tricles are normal in size and shape. Brain: No midline shift. No intracranial masses or hemorrhage. Chan-white matter interface is normal. Skull and face: Calvarium and visualized facial bones are intact, without suspicious lesions. Sinuses: Visualized sinuses and mastoids are clear. IMPRESSION: 1. No acute intracranial abnormalities. Dictated by: Mya Hernandez M.D. on 05/23/2019 at 15:02 ECG Data Attestation: I personally reviewed and interpreted this ECG as follows: Prior ECG tracings: available for review Interpretation: Normal sinus rhythm rate 89, p.r. interval 150 QRS [address] QTC [address] depression noted in V4 through V6 similar to previous EKG in 2016 MDM Narrative Medical decision making narrative: 2:20 p.m. patient is re-evaluated she is eating and drinking and appears comfortable. Her diastolic remains over 120. She states that her headache is progressively getting worse. Will get head CT to rule out intracranial hemorrhage with hypertension. She apparently had appointment with her provider at 1:00 p.m. but decided because her blood pressure was so elevated to come to the ER instead. Head CT is negative. I discussed with PCP about increasing Coreg I have discussed this with patient. She was given Toradol for pain she has pain m edication at home for her chronic ongoing pain. I recommend she take that. She was given Norvasc to help lower her diastolic it did seem to help some. Discharge Plan Departure Patient Disposition: Home Clinical Impression: Hypertension Qualifiers: Hypertension type: essential hypertension Qualified Code(s): I10 - Essential (primary) hypertension Discharge Date/Time: 05/23/19 15:45 Instructions: DI for High Blood Pressure Activity Restrictions/Additional Instructions: *You have been diagnosed with hypertension *What to do: Your blood pressure is noted to be persistently elevated. You need to follow up with PCP within 1 week to be sure your change in medication is working. *Continue to take medications as directed Carvedilol 12.5 mg twice a day-->SENT TO [facility] [place] *Follow up with your primary care provider in 2-3 days *Return to ER if you should have worsening headache, chest pain, shortness of br eath or any new, worsening or concerning symptoms Prescriptions: New carvedilol [Coreg] 12.5 mg tablet 12.5 mg PO BID Qty: 60 RF: 0 No Action venlafaxine 75 mg capsule,extended release 24hr 225 mg PO DAILY Qty: 60 RF: 1 carvedilol [Coreg] 6.25 mg tablet 6.25 mg PO BID Qty: 180 RF: 0 cyclobenzaprine 10 mg tablet 10 mg PO TID PRN (Reason: muscle spasm) Qty: 30 RF: 2 albuterol sulfate [ProAir HFA] 90 mcg/actuation HFA aerosol inhaler 2 puff INHALATION Q4-6H PRN (Reason: shortness of breath) Qty: 6.7 RF: 5 (DME) Handicap parking sticker Qty: 1 RF: 0 oxycodone-acetaminophen 5-325 mg tablet 1 tab PO BID PRN (Reason: pain) Qty: 60 RF: 0 atorvastatin 40 mg tablet 40 mg PO QPM RF: 0 trazodone 100 mg tablet 100 mg PO BEDTIME RF: 0 hydrochlorothiazide 25 mg tablet 25 mg PO DAILY RF: 0 losartan 100 mg tablet 100 mg PO DAILY RF: 0 lidocaine 5 % adhesive patch,medicated 1 patch TOP DAILY Qty: 30 RF: 1 diazepam [Valium] 10 mg tablet 10 mg PO .COMPLEX PRN (Reason: muscle spasm) 7 Days Qty: 10 RF: 0 pregabalin [Lyrica] 50 mg capsule 50 mg PO BID Qty: 60 RF: 2 Referrals: Edita Kruse DO [Primary Care Provider] -
[2019-05-23] MEDS: AMLODIPINE 2.5 MG TABLET 5 MG PO (13:52)
[2019-05-23 14:00] VITALS: BP 178/118; PULSE 82; RESP 19; O2SAT 98
--- NOTE | 2019-05-23 14:34 | DI.CT.S_ITS ---
PROCEDURE: CT HEAD/BRAIN WO CON INDICATIONS: hypertension and headache TECHNIQUE: Noncontrast 4.5 mm thick angled axial sections acquired from the foramen magnum to the vertex, with coronal and sagittal reformats. For radiation dose reduction, the following was used: automated exposure control, adjustment of mA and/or kV according to patient size. COMPARISON: None. FINDINGS: Image quality: Excellent. CSF spaces: Basal cisterns are patent. No extra-axial fluid collections. Ventricles are normal in size and shape. Brain: No midline shift. No intracranial masses or hemorrhage. Chan-white matter interface is normal. Skull and face: Calvarium and visualized facial bones are intact, without suspicious lesions. Sinuses: Visualized sinuses and mastoids are clear. IMPRESSION: 1. No acute intracranial abnormalities. Dictated by: Mya Hernandez M.D. on 05/23/2019 at 15:02 Approved by: Mya Hernandez M.D. on 05/23/2019 at 15:03
[2019-05-23 15:00] VITALS: BP 169/122; PULSE 90; RESP 16; O2SAT 100
[2019-05-23] MEDS: KETOROLAC 60 MG/2 ML VIAL 15 MG IV (15:13)
== END 2019-05-23 15:45 | disposition home or self-care (01) ==
PROVIDERS: Emergency Provider Emergency Medicine; PCP Family Medicine
DX: I10 Essential (primary) hypertension (principal); R51 Headache; R05 Cough
CPT/HCPCS: 36415; 70450; 71045; 80053; 81003; 82550; 83690; 84484; 85025; 93005; 96374; 99283; 99285; J1885

== ENCOUNTER → 2019-05-31 11:12 | Outpatient (CLI) | payer OTHER, MEDICARE, SELFPAY ==
[2019-05-31 12:24] LABS: HEMOLYSIS < 15 (0-50); Iron 131 ug/dL (37-170)
[2019-05-31 12:25] LABS: Alanine Aminotransferase 132 IU/L (<35); Albumin 4.4 g/dL (3.5-5.0); Albumin Globulin Ratio 1.8 (1.0-2.8); Alkaline Phosphatase 130 U/L (38-126); Aspartate Aminotransferase 100 IU/L (14-36); Bilirubin Total 0.5 mg/dL (0.2-1.3); Bilirubin Unconjugated 0.4 mg/dL (0.0-1.1); Globulin 2.5 g/dL (1.7-4.1); HEMOLYSIS < 15 (0-50); Total Protein 6.9 g/dL (6.3-8.2)
[2019-05-31 12:36] LABS: Percent Iron Saturation 43 % (15-50); Total Iron Binding Capacity 305 ug/dL (265-497); Transferrin 262 mg/dL (206-381)
[2019-05-31 13:18] LABS: Vitamin B12 892 pg/mL (239-931)
== END ==
PROVIDERS: Family Provider Family Medicine; PCP Family Medicine; Visit Provider Nurse Practitioner Family
DX: R53.83 Other fatigue (principal); R74.8 Abnormal levels of other serum enzymes
CPT/HCPCS: 36415; 80076; 82607; 83540; 83550

== ENCOUNTER → 2019-06-02 13:05 | Outpatient (CLI) | payer OTHER, MEDICARE, SELFPAY ==
--- NOTE | 2019-06-02 13:09 | DI.US.S_ITS ---
PROCEDURE: US ABDOMEN COMPLETE INDICATIONS: ELEVATED LIVER FUNCTIONS TECHNIQUE: Real-time scanning was performed of the abdominal and retroperitoneal organs, with image documentation. COMPARISON: [facility], CT, PE STUDY (CTA CHEST), 05/23/2009, 12:21. FINDINGS: Liver: Liver is normal in size and homogeneous in echotexture. There is a small 4 x 5 x 6 mm cyst left hepatic lobe. Gallbladder: Gallbladder appears contracted. Biliary ducts: Intrahepatic bile ducts are non-dilated. Extrahepatic bile duct caliber measures 5.0 mm. Normal is 6-7 mm or less in diameter, or 10 mm or less post-cholecystectomy. Pancreas: Visualized portions of the pancreas are sonographically normal. Spleen: Spleen is normal in size and homogeneous in echotexture. Old punctate granulomas, echogenic and calcified. Kidneys: Kidneys are normal in size and echotexture. Right kidney measures 12.3 cm long; left kidney measures 10.6 cm long. No hydronephrosis or nephrolithiasis on the left but the right kidney could not be well seen due to overlying bowel gas. No solid masses. Aorta: Visualized aorta is normal in caliber at less than 3 cm. Iliacs: Proximal common iliac arteries are normal in caliber at less than 2.5 cm. IVC: Intrahepatic inferior vena cava is patent. Miscellaneous: No free abdominal fluid. IMPRESSION: 1. Poor visualization of the right kidney due to overlying bowel gas. No left renal abnormality seen. If clinically desired a followup limited right renal ultrasound could be performed in one-2 weeks to attempt improved visualization. 2. Punctate calcified granulomas scattered within the splenic parenchyma. Incidental note made of a subcentimeter simple appearing left hepatic cyst. 3. Source of elevated liver function tests is not found. No biliary distention is seen. Dictated by: Johny Yee M.D. on 06/02/2019 at 16:08 Approved by: Johny Yee M.D. on 06/02/2019 at 16:12
== END ==
PROVIDERS: Family Provider Family Medicine; PCP Family Medicine; Visit Provider Nurse Practitioner Family
DX: R74.8 Abnormal levels of other serum enzymes (principal)
CPT/HCPCS: 76700

== ENCOUNTER → 2019-06-02 14:05 | Outpatient (CLI) | payer OTHER, MEDICARE, SELFPAY ==
[2019-06-04 14:35] LABS: Hepatitis A Antibody IgM NONREACTIVE; Hepatitis Acute Panel Interp 0.01; Hepatitis B Core Antibody IgM NONREACTIVE; Hepatitis B Surface Antigen NONREACTIVE; Hepatitis C Antibody NONREACTIVE
[2019-06-05 16:05] LABS: ANA Screen, IFA NEGATIVE (NEGATIVE)
== END ==
PROVIDERS: PCP Family Medicine; Visit Provider Nurse Practitioner Family
DX: R74.8 Abnormal levels of other serum enzymes (principal)
CPT/HCPCS: 36415; 80074; 86038; 86255; 86376

== ENCOUNTER 2019-06-15 10:53 | Outpatient (CLI) | payer OTHER, MEDICARE, SELFPAY | END 2019-06-15 16:00 | disposition home or self-care (01) | LOC: PHYS 10:59 | PROVIDERS: PCP Family Medicine; Visit Provider Physical Medicine & Rehabilitation | DX: Z98.1 Arthrodesis status (principal); M47.22 Other spondylosis with radiculopathy, cervical region | CPT/HCPCS: 95886; 95912 ==

== ENCOUNTER 2019-06-20 08:18 | Outpatient (CLI) | payer OTHER, MEDICARE, SELFPAY ==
[2019-06-20] VITALS (14 sets, daily range): BP systolic 85–129; BP diastolic 62–91; PULSE 62–79; RESP 16–18; TEMP 36.7; O2SAT 95–100
--- NOTE | 2019-06-20 08:22 | DI.RAD.S_ITS ---
PROCEDURE: PAIN C/T INTERLAMINAR INJECT INDICATIONS: RADICULOPATHY FINDINGS: Fluoroscopic spot filming was performed to verify placement of spinal needles at the C6-C7 level(s), as labeled on the films. Appropriate location(s) of the needle tip(s) was confirmed by injection of iodinated contrast. IMPRESSION: Fluoroscopy for pain management. Dictated by: Mya Hernandez M.D. on 06/20/2019 at 10:09 Approved by: Mya Hernandez M.D. on 06/20/2019 at 10:10
[2019-06-20] MEDS: MIDAZOLAM 5 MG/5 ML VIAL IV (09:23)
[2019-06-20] MEDS: fentaNYL 100 MCG/2 ML INJ 50 MCG IV (09:23)
[2019-06-20] MEDS: LIDOCAINE 1% 20 ML 10 ML INJ (09:30)
[2019-06-20] MEDS: IOPAMIDOL 15 ML VIAL 3 ML INJ (09:30)
[2019-06-20] MEDS: DEXAMETHASONE 10 MG/ML VIAL 20 MG INJ (09:31)
--- NOTE | 2019-06-20 09:33 | PC.NURSE ---
DR JONES NOTIFIED OF LOW BP. NO NEW ORDER AT THIS TIME. PT AWAKE AND A&OX4, ALL OTHER VSS. ASSISTING PT UP AND WILL RETAKE VITALS.
--- NOTE | 2019-06-20 09:39 | P.PCN_ITS ---
Procedures Date/Time Date of procedure: 06/20/19 Time of procedure: 09:39 General Procedure description: PREOP DIAGNOSIS 1. CERVICAL STENOSIS, 2. CERVICAL HNP WITH UPPER EXTREMITY RADICULAR FEATURES, POST OP DIAGNOSIS 1. CERVICAL STENOSIS, 2. CERVICAL HNP WITH UPPER EXTREMITY RADICULAR FEATURES, PROCEDURES 1. FLUORSCOPICALLY GUIDED CONTRAST CONTROLLED INTERLAMINAR EPIDURAL STEROID INJECTION - C6/7 TL JOSE LUIS PHYSICIAN: Soy Tello, DO INDICATIONS Lilia is referred by Dr. Kruse for treatment of Cervical HNP with Upper Extremity Paresthesias. FINDINGS Cervical Stenosis due to disc deterioration and nerve root irritation and nerve root irritation DESCRIPTION OF PROCEDURE Fluoroscopically guided, contrast-controlled C6/7 translaminar epidural steroid injection with conscious sedation. Following review of allergy and review of potential side effects and complications, including, but not necessarily limited to, infection, allergic reaction, local tissue breakdown, temporary as well as permanent nerve injury, stroke, paralysis, and possible , the patient indicated that patient understood and agreed to proceed. An informed consent document was signed by the patient, witnessed by a nurse, and placed in the patient's chart. Additionally, other treatment options including modalities, medications, and physical therapy were reviewed with the patient. After review of previous anaesthesic history and IV conscious sedation the patient was deemed safe to proceed with todays procedure with IV conscious sedation as ASA class II designation. Safety time-out was performed to confirm patient ID, procedure to be performed and site of procedure. IV sedation was accomplished with a combination of 2mg of Versed and 50mcg of Fentanyl administered by the RN after DO order, titrated to patient comfort during the course of the procedure while the patient remained responsive to all verbal commands. In the prone position, following sterile prep and drape of the cervical region, the C6/7 translaminar space was identified fluoroscopically. The skin was anesthetized via a 25-gauge 1.5-inch needle with 1% lidocaine solution. At this point, a 25-gauge, 2.5-inch short bevel spinal needle was atraumatically intr oduced and advanced under fluoroscopic guidance into epidural space at the C6/7 translaminar space. Depth was confirmed on lateral view. Radiological data, including multiple fluoroscopic views of the cervical spine, reveal a spinal needle at the C6/7 translaminar space. Lateral views then show placement of the needle in the epidural space. Subsequent views show contrast material flowing superiorly and inferiorly in the epidural space. DSA fluoroscopy with live contrast injection, once again, confirmed no vascular or intrathecal uptake. At this point, using loss of resistance technique with saline and air, the epidural space was entered. Following negative aspiration, injection of approximately 1.5 cc of Isovue-200 with live fluoroscopy in the AP view confirmed epidural flow in the epidural space without vascular or intrathecal uptake observed. Subsequently, a test dose of 1 cc of 1% lidocaine solution was injected and patient was observed for two minutes without signs or symptoms of complications, including abdominal pain, shortness of breath, bilateral upper or lower extremity weakness, nausea and vomiting, prior to steroid injection. At this point, 2cc or 20mg of dexamethasone was then injected without incident. The patient tolerated the procedure well without signs or symptoms of complications prior to being transferred to the recovery area for further monitoring, The patient was then transferred to the recovery area where they were observed for an appropriate period of time after the injection. The patient reported a VAS score of 9 prior to the procedure and a post-procedure VAS of 2. Total Fluoroscopy Time: 31.0 seconds Total Conscious Time: 22min POST OP INSTRUCTIONS The patient was provided a Pain Log to continue to record their response to the target-specific procedure prior to follow-up visit with the referring provider. Additionally, specific post-injection care instructions and a contact number to our office were provided if concerns arise regarding possible complications associated with the procedure are suspected. Soy Tello DO Complications: none
--- NOTE | 2019-06-20 09:45 | PC.NURSE ---
REPEAT BP AFTER PROCEDURE WITH PT SITTING UP IN PROC ROOM. NOW ASSISTING PT TO WHEELCHAIR AND TRANSPORTING TO POST PROC AREA IN STABLE CONDITION. VERSED AND FENTANYL PREPARED AND ADMINISTERED BY THIS RN. ALL OTHER MEDS PREPARED AND ADMINISTERED BY DR. JONES.
--- NOTE | 2019-06-20 10:20 | PC.NURSE ---
Post procedure note: Patient arrived post procedure at 0945. Handoff report received from Candi Beltran RN. VSS, O2 Sat WNL on Room air. Tolerating po without nausea. Awake but drowsy. Pain level on arrival 2/10 has improved to 0/10. Friend at chairside. Discharge instructions reviewed with friend and patient with good understanding.
--- NOTE | 2019-06-20 11:00 | PC.NURSE ---
Post procedure note: VSS, O2 Sat WNL. Patient up to bathroom to change. Drowsy and gait unsteady. Dr. Amezquita informed. Received verbal order to place saline lock and give bolus NS. No complaints of pain. Patient states feels tired and cold secondary to sedation medication. Will continue to monitor and observe. IV restarted by Keesha Barclay RN at 1055.
[2019-06-20] MEDS: SODIUM CHLORIDE 0.9% 500 ML 1000 ML IV (11:13)
== END 2019-06-20 11:35 | disposition home or self-care (01) ==
LOC: RAD 08:21
PROVIDERS: PCP Family Medicine; Visit Provider Physical Medicine & Rehabilitation
DX: M48.02 Spinal stenosis, cervical region (principal); M50.123 Cervical disc disorder at C6-C7 level with radiculopathy; R20.2 Paresthesia of skin
CPT/HCPCS: 62321; 99152; J1100; J2250; J3010

== ENCOUNTER 2019-08-15 07:49 | Outpatient (CLI) | payer OTHER, MEDICARE, SELFPAY ==
[2019-08-15] VITALS (9 sets, daily range): BP systolic 102–123; BP diastolic 49–92; PULSE 61–78; RESP 16–17; TEMP 36.2–36.6; O2SAT 96–100
--- NOTE | 2019-08-15 07:53 | DI.RAD.S_ITS ---
PROCEDURE: PAIN C/T FACET INJ/BLK 1ST L INDICATIONS: SPINAL STENOSIS FINDINGS: Fluoroscopic spot filming was performed to verify placement of spinal needles at the C3, C4 level(s), as labeled on the films. Appropriate location(s) of the needle tip(s) was confirmed by injection of iodinated contrast. Dictated by: Ariel Gonzalez M.D. on 08/16/2019 at 9:29 Approved by: Ariel Gonzalez M.D. on 08/16/2019 at 9:30
[2019-08-15] MEDS: MIDAZOLAM 5 MG/5 ML VIAL IV (09:01)
[2019-08-15] MEDS: fentaNYL 100 MCG/2 ML INJ 50 MCG IV (09:02)
[2019-08-15] MEDS: IOPAMIDOL 15 ML VIAL 3 ML INJ (09:13)
[2019-08-15] MEDS: DEXAMETHASONE 10 MG/ML VIAL 20 MG INJ (09:13)
[2019-08-15] MEDS: BUPIVACAINE 0.5% (PF) VIAL 2 ML INJ (09:13)
--- NOTE | 2019-08-15 09:16 | PC.NURSE ---
ASSISTING PT OFF TABLE AND TRANSPORTING TO POST PROC AREA IN STABLE CONDITION. PASSING RN CARE OF PT OFF TO CASH Mcclain RN
--- NOTE | 2019-08-15 09:21 | P.PCN_ITS ---
Procedures Date/Time Date of procedure: 08/15/19 Time of procedure: 09:22 General Procedure description: PREOP DIAGNOSIS 1. FACET ARTHROPATHY 2. AXIAL NECK PAIN POST OP DIAGNOSIS 1. FACET ARTHROPATHY 2. AXIAL NECK PAIN PROCEDURES 1. FLUOROSCOPICALLY GUIDED, CONTRAST-CONTROLLED RIGHT C3, C4 MBB. PHYSICIAN: Soy Tello, DO INDICATIONS Lilia is referred by Dr. Warren for treatment of Axial Neck Pain DESCRIPTION OF PROCEDURE Fluoroscopically guided, contrast-controlled right C3, C4 Diagnostic Medial Branch Blocks. Following review of allergy and review of potential side effects and complications, including, but not necessarily limited to, infection, allergic reaction, local tissue breakdown, stroke, temporary or permanent nerve injury and paralysis, the patient indicated that the patient understood and agreed to proceed. An informed consent document was signed by the patient, witnessed by a nurse, and placed in the patient's chart. Additionally, other treatment options including medications, modalities, and physical therapy were reviewed with the patient. After review of previous anaesthesic history and IV conscious sedation the patient was deemed safe to proceed with todays procedure with IV conscious john tion as ASA class II designation. Safety time-out was performed to confirm patient ID, procedure to be performed and site of procedure. IV sedation was accomplished with a combination of 2mg of Versed and 50mcg of Fentanyl was administered by the RN after DO order, titrated to patient comfort during the course of the procedure while the patient remained responsive to all verbal commands Time-out was taken to identify the correct patient, procedure and side prior to starting the procedure. Lying in the prone position, the patient was prepped and draped in the usual sterile fashion using Chlorhexaidine scrub and a fenestrated drape. The level was determined under fluoroscopy. The skin was anesthetized via a 25-gauge 1.5- inch needle with 1% lidocaine solution into the corresponding right C3, C4 lateral pillars. At this point, a 25-gauge short bevel spinal needle was atraumatically introduced and advanced under fluoroscopic guidance to the anatomical pillars. Following negative aspiration, injections of approximately 0.1cc of Isovue 200 confirmed interarticular placement without vascular uptake. At this point, a total of 1cc of 0.5% Marcaine and 0.5cc dexamethasone was injected without complication into each of the corresponding medial branch anatomical location. The patient tolerated the procedure well without signs or symptoms of complications prior to transfer to the recovery area continued monitoring without incident. The patient was then transferred to the recovery area where they were observed for an appropriate period of time after the injection. The patient reported a VAS score of 9 prior to the procedure and a post- procedure VAS of 2. Total Fluoroscopy Time: 9 seconds Total Conscious Sedation Time: 24 min POST OP INSTRUCTIONS They were provided a Pain Log to continue to record their response to the target-specific procedure prior to their follow-up visit with their referring physician. Additionally, specific post-injection care instructions and a contact number to our office were provided if concerns arise regarding possible complications associated with the procedure are suspected. Complications: none
--- NOTE | 2019-08-15 09:30 | PC.NURSE ---
VERSED AND FENTANYL PREPARED AND ADMINISTERED BY THIS RN. ALL OTHER MEDS PREPARED AND ADMINISTERED BY DR. JONES.
--- NOTE | 2019-08-15 09:56 | PC.NURSE ---
0932: Received patient post procedure, awake, alert, and calm. VSS upon arrival. Maykel assessment WNL. at side providing supportive care.
== END 2019-08-15 09:57 | disposition home or self-care (01) ==
LOC: RAD 07:53
PROVIDERS: PCP Family Medicine; Referring Provider Physical Medicine & Rehabilitation; Visit Provider Physical Medicine & Rehabilitation
DX: M47.812 Spondylosis without myelopathy or radiculopathy, cervical region (principal); M54.2 Cervicalgia
CPT/HCPCS: 64490; 99152; J1100; J2250; J3010

== ENCOUNTER → 2019-08-25 12:06 | Outpatient (CLI) | payer BC, MEDICARE, SELFPAY ==
[2019-08-25 13:43] LABS: Alanine Aminotransferase 41 IU/L (<35); Albumin 4.2 g/dL (3.5-5.0); Albumin Globulin Ratio 1.5 (1.0-2.8); Alkaline Phosphatase 89 U/L (38-126); Aspartate Aminotransferase 38 IU/L (14-36); Bilirubin Total 0.4 mg/dL (0.2-1.3); Bilirubin Unconjugated 0.3 mg/dL (0.0-1.1); Globulin 2.8 g/dL (1.7-4.1); HEMOLYSIS < 15 (0-50)
[2019-08-25 13:47] LABS: Alanine Aminotransferase 40 IU/L (<35); Albumin 4.2 g/dL (3.5-5.0); Albumin Globulin Ratio 1.5 (1.0-2.8); Alkaline Phosphatase 90 U/L (38-126); Aspartate Aminotransferase 37 IU/L (14-36); BUN Creatinine Ratio 23.3 (6-22); Bilirubin Total 0.4 mg/dL (0.2-1.3); Blood Urea Nitrogen 14 mg/dL (7-17); Calcium 9.6 mg/dL (8.4-10.2); Carbon Dioxide 29 mmol/L (22-32); Chloride 99 mmol/L (98-107); Estimated Glomerular Filt Rate > 60.0 mL/min (>60); Globulin 2.8 g/dL (1.7-4.1); Glucose 106 mg/dL (70-100); HEMOLYSIS < 15 (0-50); Potassium 3.9 mmol/L (3.4-5.1); Sodium 136 mmol/L (137-145)
== END ==
PROVIDERS: Family Medicine; PCP Family Medicine; Referring Provider Family Medicine; Visit Provider Family Medicine
DX: R94.5 Abnormal results of liver function studies (principal); I10 Essential (primary) hypertension; R74.8 Abnormal levels of other serum enzymes
CPT/HCPCS: 36415; 80053; 80076

== ENCOUNTER → 2020-03-13 10:14 | Outpatient (CLI) | payer OTHER, MEDICARE, SELFPAY ==
--- NOTE | 2020-03-13 10:21 | DI.RAD.S_ITS ---
PROCEDURE: XR CERVICAL SPINE 4V OR 5V INDICATIONS: Progressive neck pain TECHNIQUE: 5 views of the cervical spine acquired. COMPARISON: [facility], CR, XR CERVICAL SPINE 4V OR 5V, 10/14/2018, 12:16. FINDINGS: Bones: No acute fractures or dislocations to the T1 level. Oblique images demonstrate mild bony foraminal narrowing at C6-7 and C3-4. On the left, mild C6-7 bony neural foraminal narrowing. Moderate spondylosis at C6-7 and C3-4. Stable postoperative changes from ACDF of C4 through C6. No evidence for hardware complication. Multilevel facet arthropathy. Soft tissues: No prevertebral soft tissue swelling. IMPRESSION: Stable postoperative changes from C4-C6 anterior cervical discectomy and fusion without hardware complication. Stable spondylitic changes at C3-4 and C6-7 with moderate multilevel facet arthropathy. Stable appearance of bony neural foraminal narrowing at C6-7 and C3-4 on the right as well as C6-7 on the left. Dictated by: Michael Carlin M.D. on 03/13/2020 at 14:07 Approved by: Michael Carlin M.D. on 03/13/2020 at 14:12
== END ==
PROVIDERS: PCP Family Medicine; Referring Provider Physical Medicine & Rehabilitation; Visit Provider Physical Medicine & Rehabilitation
DX: M47.812 Spondylosis without myelopathy or radiculopathy, cervical region (principal); M48.02 Spinal stenosis, cervical region; Z98.1 Arthrodesis status
CPT/HCPCS: 72050

== ENCOUNTER → 2020-04-13 14:23 | Outpatient (CLI) | payer OTHER, MEDICARE, SELFPAY ==
[2020-04-15 08:04] LABS: COVID19 Sendout Not Detected (Not Detect)
== END ==
PROVIDERS: PCP Family Medicine; Visit Provider Physician Assistant
DX: Z01.812 Encounter for preprocedural laboratory examination (principal)
CPT/HCPCS: 87635

== ENCOUNTER 2020-04-16 10:28 | Outpatient (CLI) | payer OTHER, MEDICARE, SELFPAY ==
[2020-04-16] VITALS (8 sets, daily range): BP systolic 106–125; BP diastolic 65–82; PULSE 65–77; RESP 12–19; TEMP 36.4; O2SAT 95–100
--- NOTE | 2020-04-16 10:50 | DI.RAD.S_ITS ---
PROCEDURE: PAIN C/T INTERLAMINAR INJECT INDICATIONS: CERVICAL STENOSIS [facility] 10[facility], 06/20/2019, 9:25. FINDINGS: Fluoroscopic spot filming was performed to verify placement of spinal needles at the C6-C7 level(s). Appropriate location(s) of the needle tip(s) was confirmed by injection of iodinated contrast. ACDF spanning C4-C6. IMPRESSION: Fluoroscopic guidance provided. Dictated by: Yannick Pineda M.D. on 04/16/2020 at 17:34 Approved by: Yannick Pineda M.D. on 04/16/2020 at 17:36
[2020-04-16] MEDS: fentaNYL 100 MCG/2 ML INJ 50 MCG IV (12:16)
[2020-04-16] MEDS: BUPIVACAINE 0.25% (PF) VIAL 2 ML INJ (12:18)
[2020-04-16] MEDS: IOPAMIDOL 15 ML VIAL 3 ML INJ (12:18)
[2020-04-16] MEDS: DEXAMETHASONE 10 MG/ML VIAL 30 MG INJ (12:18)
[2020-04-16] MEDS: MIDAZOLAM 5 MG/5 ML VIAL IV (12:23)
--- NOTE | 2020-04-16 12:39 | P.PCN_ITS ---
Date/Time/Diagnoses Date of procedure: 04/16/20 Time of procedure: 12:39 Pre-procedure diagnosis: 1. CERVICAL STENOSIS, 2. CERVICAL HNP WITH UPPER EXTREMITY RADICULAR FEATURES Post-procedure diagnosis: same Procedure Notes Procedure: 1. FLUORSCOPICALLY GUIDED CONTRAST CONTROLLED INTERLAMINAR EPIDURAL STEROID INJECTION - C6/7 TL JOSE LUIS Indications: Lilia is referred by Dr. Warren for treatment of Cervical HNP with Upper Extremity Paresthesias. Physician: Soy Tello Total Fluoroscopy time (seconds): 27 Total sedation minutes: 18 Complications: none Procedure in detail & Post-procedure care: FINDINGS Cervical Stenosis due to disc deterioration and nerve root irritation and nerve root irritation DESCRIPTION OF PROCEDURE Fluoroscopically guided, contrast-controlled C6/7 translaminar epidural steroid injection with conscious sedation. Following review of allergy and review of potential side effects and complications, including, but not necessarily limited to, infection, allergic reaction, local tissue breakdown, temporary as well as permanent nerve injury, stroke, paralysis, and possible , the patient indicated that patient understood and agreed to proceed. An informed consent document was signed by the patient, witnessed by a nurse, and placed in the patient's chart. Additionally, other treatment options including modalities, medications, and physical therapy were reviewed with the patient. After review of previous anaesthesic history and IV conscious sedation the patient was deemed safe to proceed with today?s procedure with IV conscious sedation as ASA class II designation. Safety time-out was performed to confirm patient ID, procedure to be performed and site of procedure. IV sedation was accomplished with a combination of 3mg of Versed and 50mcg of Fentanyl administered by the RN after DO order, titrated to patient comfort during the course of the procedure while the patient remained responsive to all verbal commands. In the prone position, following sterile prep and drape of the cervical region, the C6/7 translaminar space was identified fluoroscopically. The skin was anesthetized via a 25-gauge 1.5-inch needle with 1% lidocaine solution. At this point, a 25-gauge, 2.5-inch short bevel spinal needle was atraumatically introduced and advanced under fluoroscopic guidance into epidural space at the C6/7 translaminar space. Depth was confirmed on lateral view. Radiological data, including multiple fluoroscopic views of the cervical spine, reveal a spinal needle at the C6/7 translaminar space. Lateral views then show placement of the needle in the epidural space. Subsequent views show contrast material flowing superiorly and inferiorly in the epidural space. DSA fluoroscopy with live contrast injection, once again, confirmed no vascular or intrathecal uptake. At this point, using loss of resistance technique with saline and air, the epidural space was entered. Following negative aspiration, injection of approx imately 1.5 cc of Isovue-200 with live fluoroscopy in the AP view confirmed epidural flow in the epidural space without vascular or intrathecal uptake observed. Subsequently, a test dose of 1 cc of 1% lidocaine solution was injected and patient was observed for two minutes without signs or symptoms of complications, including abdominal pain, shortness of breath, bilateral upper or lower extremity weakness, nausea and vomiting, prior to steroid injection. At this point, 3cc or 30mg of dexamethasone was then injected without incident. The patient tolerated the procedure well without signs or symptoms of complications prior to being transferred to the recovery area for further monitoring, The patient was then transferred to the recovery area where they were observed for an appropriate period of time after the injection. The patient reported a VAS score of 8 prior to the procedure and a post-procedure VAS of 0. POST OP INSTRUCTIONS The patient was provided a Pain Log to continue to record their response to the target-specific procedure prior to follow-up visit with the referring provider. Additionally, specific post-injection care instructions and a contact number to our office were provided if concerns arise regarding possible complications associated with the procedure are suspected.
--- NOTE | 2020-04-16 12:54 | PC.NURSE ---
vital signs were accidently erased by [employer] jose luis after procedure completed and without verifying that it was ok to do so. Due to the position of the procedure and the nature of the procedure I was holding the pt head so as not to compromise the procedure. I did however get recall the first and last set due capturing them during timeout and prior to the removal of the needle. The remainder of them were lost.
== END 2020-04-16 13:10 | disposition home or self-care (01) ==
PROVIDERS: PCP Family Medicine; Referring Provider Family Medicine; Visit Provider Physical Medicine & Rehabilitation
DX: M48.02 Spinal stenosis, cervical region (principal); M50.123 Cervical disc disorder at C6-C7 level with radiculopathy
CPT/HCPCS: 62321; 99152; J1100; J2250; J3010

== ENCOUNTER → 2020-05-31 13:14 | Outpatient (CLI) | payer OTHER, MEDICARE, SELFPAY ==
--- NOTE | 2020-05-31 13:21 | DI.MRI.S_ITS ---
PROCEDURE: MR TMJ WO CON INDICATIONS: Jaw pain TECHNIQUE: Axial T1 spin echo, coronal and sagittal PD fast spin echo through the temporomandibular joints, in both the closed- and open-mouth positions. COMPARISON: None. FINDINGS: Image quality: This examination is limited by involuntary motion artifact. Images repeated, without significant improvement. Right: The joint appears normally aligned. The articular disc irregular and degenerated. No bony erosions or osteophytes. Left: The joint appears normally aligned. The articular disc appears irregular and degenerated. No bony erosions or osteophytes. The open mouth images are virtually nondiagnostic. However, on series 10, the articular discs appear to both capture normally. IMPRESSION: The articular discs on both sides appear irregular and degenerated. Motion limited study, with the open mouth images virtually nondiagnostic. Dictated by: Kodak Deshpande M.D. on 05/31/2020 at 18:22 Approved by: Kodak Deshpande M.D. on 05/31/2020 at 18:25
== END ==
PROVIDERS: PCP Family Medicine; Referring Provider Dentist Oral and Maxillofacial Surgery; Visit Provider Dentist Oral and Maxillofacial Surgery
DX: R68.84 Jaw pain (principal)
CPT/HCPCS: 70336

== ENCOUNTER → 2020-08-20 12:31 | Outpatient (CLI) | payer MEDICARE, SELFPAY ==
[2020-08-20 14:44] LABS: COVID19 -Nasal RAPID Negative (Negative)
== END ==
PROVIDERS: PCP Family Medicine; Visit Provider Physical Medicine & Rehabilitation
DX: Z20.822 Contact with and (suspected) exposure to COVID-19 (principal)
CPT/HCPCS: 87635; C9803

== ENCOUNTER 2020-08-22 09:21 | Outpatient (CLI) | payer MEDICARE, SELFPAY ==
[2020-08-22] VITALS (9 sets, daily range): BP systolic 116–143; BP diastolic 73–92; PULSE 69–81; RESP 13–20; TEMP 36.8; O2SAT 95–99
--- NOTE | 2020-08-22 09:22 | DI.RAD.S_ITS ---
PROCEDURE: PAIN C/T FACET INJ/BLK 1ST L INDICATIONS: SPINAL STENOSIS COMPARISON: [facility], , PAIN C/T FACET INJ/BLK 1ST L, 08/15/2019, 8:58. FINDINGS: Fluoroscopic spot filming was performed to verify placement of spinal needles at the C3-C4 and C6-C7 level(s), as labeled on the films. Appropriate location(s) of the needle tip(s) was confirmed by injection of iodinated contrast. IMPRESSION: Intraprocedural examination within normal limits. Dictated by: Kodak Deshpande M.D. on 08/22/2020 at 12:28 Approved by: Kodak Deshpande M.D. on 08/22/2020 at 12:28
[2020-08-22] MEDS: fentaNYL 100 MCG/2 ML INJ 50 MCG IV (10:07)
[2020-08-22] MEDS: MIDAZOLAM 5 MG/5 ML VIAL IV (10:14)
[2020-08-22] MEDS: IOPAMIDOL 15 ML VIAL 3 ML INJ (10:15)
[2020-08-22] MEDS: BUPIVACAINE 0.5% (PF) VIAL 2 ML INJ (10:15)
[2020-08-22] MEDS: DEXAMETHASONE 10 MG/ML VIAL 20 MG INJ (10:16)
--- NOTE | 2020-08-22 10:27 | P.PCN_ITS ---
Date/Time/Diagnoses Date of procedure: 08/22/20 Time of procedure: 10:27 Pre-procedure diagnosis: 1. FACET ARTHROPATHY 2. AXIAL NECK PAIN Post-procedure diagnosis: same Procedure Notes Procedure: 1. FLUOROSCOPICALLY GUIDED, CONTRAST-CONTROLLED RIGHT C3/4 AND C6/7 FACET JOINT INJECTIONS WITH CONSCIOUS SEDATION. Indications: Lilia is referred by Dr. Warren for treatment of Axial Neck Pain a/p Fusion Physician: Soy Tello Total Fluoroscopy time (seconds): 10 Total sedation minutes: 15 Complications: none Procedure in detail & Post-procedure care: DESCRIPTION OF PROCEDURE Fluoroscopically guided, contrast-controlled right C3/4 and C6/7 facet joint injections with conscious sedation. Following review of allergy and review of potential side effects and complications, including, but not necessarily limited to, infection, allergic reaction, local tissue breakdown, stroke, temporary or permanent nerve injury and paralysis, the patient indicated that the patient understood and agreed to proceed. An informed consent document was signed by the patient, witnessed by a nurse, and placed in the patient's chart. Additionally, other treatment options including medications, modalities, and physical therapy were reviewed with the patient. After review of previous anaesthesic history and IV conscious sedation the patient was deemed safe to proceed with today?s procedure with IV conscious sedation as ASA class II designation. Safety time-out was performed to confirm patient ID, procedure to be performed and site of procedure. IV sedation was accomplished with a combination of 3mg of Versed and 50mcg of Fentanyl was administered by the RN after DO order, titrated to patient comfort during the course of the procedure while the patient remained responsive to all verbal commands In the prone position, following sterile prep and drape of the cervical spine region, the posterior aspect of the right C3/4 and C6/7 facet joints were identified fluoroscopically. The skin was anesthetized via a 25-gauge 1.5-inch needle with 1% lidocaine solution into the corresponding facet joints. At this point, a 25-gauge 2.5-inch spinal needle was atraumatically introduced and advanced under fluoroscopic guidance into the corresponding facet joints. Following negative aspiration, injections of approximately 0.2-cc of Isovue 200 confirmed interarticular placement without vascular uptake. At this point, a total of 1cc including 0.5cc or 5mg of dexamethasone combined with 0.5cc of 1% lidocaine solution was injected without complication into each of the corresponding facet joints. The procedure tolerated the procedure well without signs or symptoms of complications prior to transfer to the recovery area continued monitoring without incident. The patient was then transferred to the recovery area where they were observed for an appropriate period of time after the injection. The patient reported a VAS score of 7 prior to the procedure and a post- procedure VAS of 0. POST OP INSTRUCTIONS They were provided a Pain Log to continue to record their response to the target-specific procedure prior to their follow-up visit with their referring physician. Additionally, specific post-injection care instructions and a contact number to our office were provided if concerns arise regarding possible complications associated with the procedure are suspected.
== END 2020-08-22 10:51 | disposition home or self-care (01) ==
PROVIDERS: PCP Family Medicine; Referring Provider Physical Medicine & Rehabilitation; Visit Provider Physical Medicine & Rehabilitation
DX: M47.812 Spondylosis without myelopathy or radiculopathy, cervical region (principal); M54.2 Cervicalgia; Z98.1 Arthrodesis status
CPT/HCPCS: 64490; 64491; 99152; J1100; J2250; J3010

== ENCOUNTER → 2020-09-18 12:07 | Outpatient (CLI) | payer MEDICARE, SELFPAY ==
[2020-09-18 13:23] LABS: Add Manual Diff / Slide Review NO; Basophils Absolute Auto 100 /uL (0-100); Basophils Percent Auto 1.5 % (0-2); Eosinophils Absolute Auto 500 /uL (0-450); Eosinophils Percent Auto 9.3 % (2-4); Hematocrit 41.6 % (36-46); Hemoglobin 14.4 g/dL (12.0-16.0); Lymphocytes Absolute Auto 1800 /uL (1100-4500); Lymphocytes Percent Auto 36.1 % (25-40); Mean Corpuscular HGB Conc 34.5 % (30-36); Mean Corpuscular Hemoglobin 29.7 PG (26-34); Mean Corpuscular Volume 86.1 fL (80-100); Monocytes Absolute Auto 300 /uL (0-900); Monocytes Percent Auto 6.2 % (3-14); Neutrophils Absolute Auto 2300 /uL (1500-7000); Neutrophils Percent Auto 46.9 % (50-75); Platelet Count 253 X10^3/uL (150-400); Red Blood Cell Count 4.84 X10^6/uL (4.0-5.2); Red Cell Distribution Width 13.4 % (11.6-14.8)
[2020-09-18 13:43] LABS: Alanine Aminotransferase 65 IU/L (<35); Albumin 4.5 g/dL (3.5-5.0); Albumin Globulin Ratio 1.5 (1.0-2.8); Alkaline Phosphatase 113 U/L (38-126); Aspartate Aminotransferase 42 IU/L (14-36); BUN Creatinine Ratio 25.8 (6-22); Bilirubin Total 0.4 mg/dL (0.2-1.3); Blood Urea Nitrogen 16 mg/dL (7-17); Calcium 9.4 mg/dL (8.4-10.2); Carbon Dioxide 29 mmol/L (22-32); Chloride 98 mmol/L (98-107); Cholesterol 309 mg/dL (140-199); Estimated Glomerular Filt Rate > 60.0 mL/min (>60); Glucose 108 mg/dL (80-110); HDL Cholesterol 47 mg/dL (40-60); HEMOLYSIS 16 (0-50); Potassium 3.6 mmol/L (3.4-5.1); Sodium 136 mmol/L (137-145); Total Protein 7.5 g/dL (6.3-8.2)
[2020-09-18 13:50] LABS: Triglycerides 955 mg/dL (35-150)
[2020-09-18 13:52] LABS: Free T3, Triiodothyronine Free 2.76 pg/mL (2.77-5.27); Free T4, Direct Thyroxine 0.77 ng/dL (0.78-2.19)
[2020-09-18 14:06] LABS: Thyroid Stimulating Hormone 2.15 uIU/mL (0.47-4.68)
== END ==
PROVIDERS: PCP Family Medicine; Referring Provider Family Medicine; Visit Provider Family Medicine
DX: I10 Essential (primary) hypertension (principal); R53.83 Other fatigue; R74.8 Abnormal levels of other serum enzymes; E78.5 Hyperlipidemia, unspecified
CPT/HCPCS: 36415; 80053; 80061; 84439; 84443; 84481; 85025

== ENCOUNTER → 2020-11-19 12:06 | Outpatient (CLI) | payer MEDICARE, SELFPAY ==
--- NOTE | 2020-11-19 12:10 | DI.RAD.S_ITS ---
PROCEDURE: XR CHEST 2V INDICATIONS: cough TECHNIQUE: 2 views of the chest were acquired. COMPARISON: [facility], CR, XR CHEST 1V, 05/23/2019, 13:29. FINDINGS: Surgical changes and devices: Lower cervical spine fusion. Right breast implant. Lungs and pleura: Lungs are clear. No pleural effusions or pneumothorax. Mediastinum: Mediastinal contours are normal. Heart size is normal. Bones and chest wall: No suspicious bony abnormalities. Soft tissues appear unremarkable. IMPRESSION: No acute cardiopulmonary disease. Dictated by: Mya Hernandez M.D. on 11/19/2020 at 13:08 Approved by: Mya Hernandez M.D. on 11/19/2020 at 13:09
--- NOTE | 2020-11-19 12:10 | DI.RAD.S_ITS ---
PROCEDURE: XR HIP W PEL IF DONE RT 2V INDICATIONS: right hip pain TECHNIQUE: AP pelvis with lateral view(s) of the right hip(s). COMPARISON: [facility], CR, [id number] W PEL IF PERFORMED, 07/08/2015, 23:55. FINDINGS: Bones: No fractures or dislocations. Pelvic ring appears intact. No suspicious bony lesions. There is moderate right hip and sacroiliac joint degeneration, increased compared to 07/08/2015. Mild left hip joint degeneration. Soft tissues: The visualized bowel gas pattern is normal. No suspicious soft tissue calcifications. There is a large amount of stool in colon. IMPRESSION: No fracture or dislocation. Moderate osteoarthritic changes. Dictated by: Mya Hernandez M.D. on 11/19/2020 at 17:31 Approved by: Mya Hernandez M.D. on 11/19/2020 at 17:33
[2020-11-19 13:05] LABS: Alanine Aminotransferase 109 IU/L (<35); Albumin 4.7 g/dL (3.5-5.0); Albumin Globulin Ratio 1.7 (1.0-2.8); Alkaline Phosphatase 126 U/L (38-126); Aspartate Aminotransferase 75 IU/L (14-36); Bilirubin Total 0.4 mg/dL (0.2-1.3); Blood Urea Nitrogen 15 mg/dL (7-17); Calcium 9.9 mg/dL (8.4-10.2); Carbon Dioxide 23 mmol/L (22-32); Chloride 101 mmol/L (98-107); Cholesterol 164 mg/dL (140-199); Estimated Glomerular Filt Rate > 60.0 mL/min (>60); Globulin 2.8 g/dL (1.7-4.1); Glucose 110 mg/dL (80-110); HDL Cholesterol 71 mg/dL (40-60); HEMOLYSIS < 15 (0-50); LDL Cholesterol Calculated 58 mg/dL (<100); Potassium 3.8 mmol/L (3.4-5.1); Sodium 135 mmol/L (137-145); Total Protein 7.5 g/dL (6.3-8.2); Triglycerides 174 mg/dL (35-150)
[2020-11-19 13:20] LABS: Free T3, Triiodothyronine Free 2.69 pg/mL (2.77-5.27); Free T4, Direct Thyroxine 1.04 ng/dL (0.78-2.19)
[2020-11-19 13:33] LABS: Thyroid Stimulating Hormone 0.581 uIU/mL (0.47-4.68)
== END ==
PROVIDERS: PCP Family Medicine; Referring Provider Family Medicine; Visit Provider Family Medicine
DX: R05 Cough (principal); E03.9 Hypothyroidism, unspecified; G89.29 Other chronic pain; M25.551 Pain in right hip; E78.1 Pure hyperglyceridemia; I10 Essential (primary) hypertension; R74.8 Abnormal levels of other serum enzymes
CPT/HCPCS: 36415; 71046; 73502; 80053; 80061; 84439; 84443; 84481

== ENCOUNTER → 2020-12-16 12:20 | Outpatient (CLI) | payer MEDICARE, SELFPAY ==
[2020-12-16 12:53] LABS: COVID19 -Nasal RAPID Negative (Negative)
== END ==
PROVIDERS: PCP Family Medicine; Visit Provider Physician Assistant
DX: Z01.812 Encounter for preprocedural laboratory examination (principal); Z20.822 Contact with and (suspected) exposure to COVID-19
CPT/HCPCS: 87635; C9803

== ENCOUNTER 2020-12-17 09:00 | Outpatient (CLI) | payer MEDICARE, SELFPAY ==
[2020-12-17] VITALS (8 sets, daily range): BP systolic 117–142; BP diastolic 78–97; PULSE 80–98; RESP 12–25; TEMP 36.4; O2SAT 97–100
--- NOTE | 2020-12-17 09:02 | DI.RAD.S_ITS ---
PROCEDURE: PAIN C/T FACET INJ/BLK 1ST L INDICATIONS: SPINAL STENOSIS COMPARISON: [facility], XA, PAIN C/T FACET INJ/BLK 1ST L, 08/22/2020, 10:13. [facility], XA, PAIN C/T FACET INJ/BLK 1ST L, 08/15/2019, 8:58. FINDINGS: Fluoroscopic spot filming was performed to verify placement of spinal needles at the right-sided C3-4 and C6-7 facet level(s), as labeled on the films. Appropriate location(s) of the needle tip(s) was confirmed by injection of iodinated contrast. IMPRESSION: Appropriate needle tip localization for 2 level right-side facet joint steroid injection. Dictated by: Johny Yee M.D. on 12/17/2020 at 10:20 Approved by: Johny Yee M.D. on 12/17/2020 at 10:22
[2020-12-17] MEDS: fentaNYL 100 MCG/2 ML INJ 50 MCG IV (09:45)
[2020-12-17] MEDS: IOPAMIDOL 15 ML VIAL 3 ML INJ (09:52)
[2020-12-17] MEDS: BUPIVACAINE 0.5% (PF) VIAL 2 ML INJ (09:52)
[2020-12-17] MEDS: DEXAMETHASONE 10 MG/ML VIAL 20 MG INJ (09:53)
[2020-12-17] MEDS: MIDAZOLAM 5 MG/5 ML VIAL IV (09:55)
--- NOTE | 2020-12-17 10:02 | P.PCN_ITS ---
Date/Time/Diagnoses Date of procedure: 12/17/20 Time of procedure: 10:02 Pre-procedure diagnosis: 1. FACET ARTHROPATHY 2. AXIAL NECK PAIN Post-procedure diagnosis: same Procedure Notes Procedure: 1. FLUOROSCOPICALLY GUIDED, CONTRAST-CONTROLLED RIGHT C3/4 AND C6/7 FACET JOINT INJECTIONS WITH CONSCIOUS SEDATION. Indications: Lilia is referred by Dr. Warren for treatment of Axial Neck Pain Physician: Soy Tello Total Fluoroscopy time (seconds): 9 Total sedation minutes: 13 Complications: none Procedure in detail & Post-procedure care: DESCRIPTION OF PROCEDURE Fluoroscopically guided, contrast-controlled right C3/4 and C6/7 facet joint injections with conscious sedation. Following review of allergy and review of potential side effects and complications, including, but not necessarily limited to, infection, allergic reaction, local tissue breakdown, stroke, temporary or permanent nerve injury and paralysis, the patient indicated that the patient understood and agreed to proceed. An informed consent document was signed by the patient, witnessed by a nurse, and placed in the patient's chart. Additionally, other treatment options including medications, modalities, and physical therapy were reviewed with the patient. After review of previous anaesthesic history and IV conscious sedation the patient was deemed safe to proceed with today?s procedure with IV conscious sedation as ASA class II designation. Safety time-out was performed to confirm patient ID, procedure to be performed and site of procedure. IV sedation was accomplished with a combination of 3mg of Versed and 50mcg of Fentanyl was administered by the RN after DO order, titrated to patient comfort during the course of the procedure while the patient remained responsive to all verbal commands In the prone position, following sterile prep and drape of the cervical spine region, the posterior aspect of the right C3/4 and C6/7 facet joints were identified fluoroscopically. The skin was anesthetized via a 25-gauge 1.5-inch needle with 1% lidocaine solution into the corresponding facet joints. At this point, a 25-gauge 2.5-inch spinal needle was atraumatically introduced and advanced under fluoroscopic guidance into the corresponding facet joints. Following negative aspiration, injections of approximately 0.2-cc of Isovue 200 confirmed interarticular placement without vascular uptake. At this point, a total of 1 cc including 0.5cc or 5mg of dexamethasone combined with 0.5 cc of 1% lidocaine solution was injected without complication into each of the corresponding facet joints. The procedure tolerated the procedure well without signs or symptoms of complications prior to transfer to the recovery area continued monitoring without incident. The patient was then transferred to the recovery area where they were observed for an appropriate period of time after the injection. The patient reported a VAS score of 7 prior to the procedure and a post- procedure VAS of 0. POST OP INSTRUCTIONS They were provided a Pain Log to continue to record their response to the target-specific procedure prior to their follow-up visit with their referring physician. Additionally, specific post-injection care instructions and a contact number to our office were provided if concerns arise regarding possible complications associated with the procedure are suspected.
== END 2020-12-17 10:30 | disposition home or self-care (01) ==
PROVIDERS: PCP Family Medicine; Referring Provider Physical Medicine & Rehabilitation; Visit Provider Physical Medicine & Rehabilitation
DX: M47.812 Spondylosis without myelopathy or radiculopathy, cervical region (principal); M54.2 Cervicalgia
CPT/HCPCS: 64490; 64491; 99152; J1100; J2250; J3010

== ENCOUNTER → 2021-01-28 11:30 | Outpatient (CLI) | payer MEDICARE, SELFPAY ==
[2021-01-28 13:41] LABS: Cholesterol 173 mg/dL (140-199); HDL Cholesterol 56 mg/dL (40-60); LDL Cholesterol Calculated 53 mg/dL (<100); Triglycerides 319 mg/dL (35-150)
[2021-01-28 13:58] LABS: Free T3, Triiodothyronine Free 3.15 pg/mL (2.77-5.27); Free T4, Direct Thyroxine 0.91 ng/dL (0.78-2.19)
[2021-01-28 14:11] LABS: Thyroid Stimulating Hormone 1.77 uIU/mL (0.47-4.68)
== END ==
PROVIDERS: PCP Family Medicine; Referring Provider Family Medicine; Visit Provider Family Medicine
DX: E03.9 Hypothyroidism, unspecified (principal); E78.5 Hyperlipidemia, unspecified
CPT/HCPCS: 36415; 80061; 84439; 84443; 84481

== ENCOUNTER → 2021-03-25 08:28 | Outpatient (CLI) | payer MEDICARE, SELFPAY ==
[2021-03-25 14:37] LABS: COVID19 -Nasal RAPID Negative (Negative)
== END ==
PROVIDERS: PCP Family Medicine; Visit Provider Physical Medicine & Rehabilitation
DX: Z20.822 Contact with and (suspected) exposure to COVID-19 (principal)
CPT/HCPCS: 87635; C9803

== ENCOUNTER 2021-03-27 09:14 | Outpatient (CLI) | payer MEDICARE, SELFPAY ==
[2021-03-27] VITALS (8 sets, daily range): BP systolic 118–146; BP diastolic 69–95; PULSE 75–82; RESP 12–20; TEMP 37; O2SAT 95–100
--- NOTE | 2021-03-27 09:15 | DI.RAD.S_ITS ---
PROCEDURE: PAIN C/T FACET INJ/BLK 1ST L INDICATIONS: Left C3-4 and C6-7 facet joint injection COMPARISON: [facility], XA, PAIN C/T FACET INJ/BLK 1ST L, 12/17/2020, 9:50. FINDINGS: Fluoroscopic spot filming was performed to verify placement of spinal needles on the left at the C3-C4 and the at the C6-C7 level, as labeled on the films. Appropriate location of the needle tips was confirmed by injection of iodinated contrast. IMPRESSION: No significant intraprocedural abnormality. Dictated by: Kodak Deshpande M.D. on 03/27/2021 at 10:43 Approved by: Kodak Deshpande M.D. on 03/27/2021 at 10:43
[2021-03-27] MEDS: MIDAZOLAM 5 MG/5 ML VIAL IV (10:50)
[2021-03-27] MEDS: fentaNYL 100 MCG/2 ML INJ 50 MCG IV (10:50)
[2021-03-27] MEDS: BUPIVACAINE 0.5% (PF) VIAL 2 ML INJ (10:56)
[2021-03-27] MEDS: IOPAMIDOL 15 ML VIAL 3 ML INJ (10:56)
[2021-03-27] MEDS: DEXAMETHASONE 10 MG/ML VIAL 20 MG INJ (10:56)
--- NOTE | 2021-03-27 10:59 | P.PCN_ITS ---
Date/Time/Diagnoses Date of procedure: 03/27/21 Time of procedure: 10:59 Pre-procedure diagnosis: 1. FACET ARTHROPATHY 2. AXIAL NECK PAIN Post-procedure diagnosis: same Procedure Notes Procedure: 1. FLUOROSCOPICALLY GUIDED, CONTRAST-CONTROLLED LEFT C3/4 AND C6/7 FACET JOINT INJECTIONS WITH CONSCIOUS SEDATION. Indications: Reny is referred by Dr. Warren for treatment of Axial Neck Pain Physician: Soy Tello Total Fluoroscopy time (seconds): 7 Total sedation minutes: 7 Complications: none Procedure in detail & Post-procedure care: DESCRIPTION OF PROCEDURE Fluoroscopically guided, contrast-controlled left C3/4 and C6/7 facet joint injections with conscious sedation. Following review of allergy and review of potential side effects and complications, including, but not necessarily limited to, infection, allergic reaction, local tissue breakdown, stroke, temporary or permanent nerve injury and paralysis, the patient indicated that the patient understood and agreed to proceed. An informed consent document was signed by the patient, witnessed by a nurse, and placed in the patient's chart. Additionally, other treatment options including medications, modalities, and physical therapy were reviewed with the patient. After review of previous anaesthesic history and IV conscious sedation the patient was deemed safe to proceed with today?s procedure with IV conscious sedation as ASA class II designation. Safety time-out was performed to confirm patient ID, procedure to be performed and site of procedure. IV sedation was accomplished with a combination of 3mg of Versed and 50mcg of Fentanyl was administered by the RN after DO order, titrated to patient comfort during the course of the procedure while the patient remained responsive to all verbal commands In the prone position, following sterile prep and drape of the cervical spine region, the posterior aspect of the left C3/4 and C6/7 facet joints were identified fluoroscopically. The skin was anesthetized via a 25-gauge 1.5-inch needle with 1% lidocaine solution into the corresponding facet joints. At this point, a 25-gauge 2.5-inch spinal needle was atraumatically introduced and advanced under fluoroscopic guidance into the corresponding facet joints. Following negative aspiration, injections of approximately 0.2cc of Isovue 200 confirmed interarticular placement without vascular uptake. At this point, a total of 1cc including 0.5cc or 5mg of dexamethasone combined with 0.5cc of 1% lidocaine solution was injected without complication into each of the corresponding facet joints. The procedure tolerated the procedure well without signs or symptoms of complications prior to transfer to the recovery area continued monitoring without incident. The patient was then transferred to the recovery area where they were observed for an appropriate period of time after the injection. The patient reported a VAS score of 7 prior to the procedure and a post- procedure VAS of 0. POST OP INSTRUCTIONS They were provided a Pain Log to continue to record their response to the target-specific procedure prior to their follow-up visit with their referring physician. Additionally, specific post-injection care instructions and a contact number to our office were provided if concerns arise regarding possible complications associated with the procedure are suspected.
== END 2021-03-27 11:27 | disposition home or self-care (01) ==
LOC: RAD 09:14
PROVIDERS: PCP Family Medicine; Referring Provider Physical Medicine & Rehabilitation; Visit Provider Physical Medicine & Rehabilitation
DX: M47.812 Spondylosis without myelopathy or radiculopathy, cervical region (principal); M54.2 Cervicalgia
CPT/HCPCS: 64490; 64491; J1100; J2250; J3010

== ENCOUNTER → 2021-04-30 15:08 | Outpatient (CLI) | payer MEDICARE, SELFPAY ==
--- NOTE | 2021-04-30 | DI.CT.S_ITS ---
PROCEDURE: CT SINUS SCREEN WO CON INDICATIONS: Chronic rhinitis,Cervical Radiculopathy TECHNIQUE: Noncontrast 3.0 mm axial images acquired from the frontal sinuses to the mid-sella, with coronal and sagittal reformats. For radiation dose reduction, the following was used: automated exposure control, adjustment of mA and/or kV according to patient size. COMPARISON: [facility], CT, SOFT TISSUE NECK W CONTRAST, 05/24/2009, 8:38. [facility], MR, MR CERVICAL SPINE WO CON, 04/30/2021, 15:21. [facility], CT, CT HEAD/BRAIN WO CON, 05/23/2019, 14:47. FINDINGS: Image quality: Excellent. Maxillary Sinuses: There is at least moderate mucosal thickening seen along the inferior aspects of the maxillary sinuses, left worse than right. Along the inferolateral aspect of the left maxillary sinus, there is focal ossification seen. There is demineralization seen of the medial guerrero of the maxillary sinuses. Ethmoid Air Cells: No bony remodeling or destruction. Sinuses are clear. There is moderate mucosal thickening seen involving the posterior aspect of the left maxillary sinus. There is demineralization seen several left-sided ethmoid septations. Sphenoid Sinuses: No bony remodeling or destruction. Mild mucosal thickening can be seen on the left. Frontal Sinuses: No bony remodeling or destruction. Sinuses are clear. Ostiomeatal Complexes: Ostiomeatal complexes are patent nearly completely occluded by soft tissue thickening. The ostiomeatal complexes are demineralized. Bilateral Preston cells are seen. Miscellaneous: Visualized intra-orbital contents are normal. No melo bullosa or paradoxical turbinate curvature. There is moderate S shaped nasal septal deviation. IMPRESSION: Chronic appearing paranasal sinus disease is seen, which is worst within the left maxillary sinus. Along the inferolateral aspect of the left maxillary sinus, there is focal ossification seen, which is likely related to a tooth derived lesion. The appearance is unchanged compared to 2008 and this is considered to be a benign lesion. The ostiomeatal complexes are nearly completely occluded by soft tissue thickening. Moderate S shaped nasal septal deviation can be seen. Dictated by: Kodak Deshpande M.D. on 04/30/2021 at 15:40 Approved by: Kodak Deshpande M.D. on 04/30/2021 at 15:43
--- NOTE | 2021-04-30 15:09 | DI.MRI.S_ITS ---
PROCEDURE: MR CERVICAL SPINE WO CON INDICATIONS: new cervical radiculopathy s/p fusion TECHNIQUE: Noncontrast sagittal T1 spin echo and T2 fast spin echo, sagittal STIR, foraminal oblique sagittal T2 fast spin echo, and axial gradient echo or T2 fast spin echo through the cervical spine. COMPARISON: [facility], CR, XR CERVICAL SPINE 4V OR 5V, 03/13/2020, 10:27. [facility], XA, PAIN C/T FACET INJ/BLK 1ST L, 03/27/2021, 10:51. [facility], MR, MR CERVICAL SPINE WO CON, 10/17/2018, 19:33. FINDINGS: Image quality: Excellent. Alignment and Curvature: There is normal bony alignment. Bone Marrow: C4-5 and C5-6 anterior cervical discectomy and fusion with anterior plate and screw hardware in good position. Spinal Cord: Visualized spinal cord has normal size and signal. No cerebellar tonsillar herniation. Paraspinous Soft Tissues: No paravertebral masses. Prevertebral soft tissues are normal in thickness. C2-C3: Hypertrophic facet joints result in moderate right and mild left foraminal stenosis. No disc bulge or central stenosis present. C3-C4: Disc space narrowing and posterior disc osteophyte complex results in moderate stenosis of flattening the ventral surface of the cord. Moderate left and mild right foraminal stenosis C4-C5: Discectomy and fusion. No central stenosis. No foraminal stenosis present. C5-C6: Discectomy and fusion. No central or foraminal stenosis present. C6-C7: The disc space narrowing and mild disc bulge present without central stenosis. Hypertrophic facet joints result in severe left and mild right foraminal stenosis. C7-T1: No central or foraminal stenosis IMPRESSION: 1. Multilevel degenerative disc disease and arthropathy results in varying degrees of central and foraminal stenosis including moderate central stenosis at C3-4 with flattening the ventral surface of the cord Approved by: Michael Wiley M.D. on 04/30/2021 at 16:15
== END ==
PROVIDERS: PCP Family Medicine; Referring Provider Otolaryngology; Visit Provider Otolaryngology
DX: M50.123 Cervical disc disorder at C6-C7 level with radiculopathy (principal); M47.22 Other spondylosis with radiculopathy, cervical region; J31.0 Chronic rhinitis; J32.0 Chronic maxillary sinusitis; J34.2 Deviated nasal septum; M48.02 Spinal stenosis, cervical region; Z98.1 Arthrodesis status
CPT/HCPCS: 70486; 72141

== ENCOUNTER → 2021-06-13 16:30 | Outpatient (CLI) | payer MEDICARE, SELFPAY ==
[2021-06-13 17:35] LABS: Hemoglobin 13.4 g/dL (12.0-16.0); Mean Corpuscular HGB Conc 34.4 % (30-36); Mean Corpuscular Hemoglobin 29.9 PG (26-34); Platelet Count 242 X10^3/uL (150-400); Red Blood Cell Count 4.49 X10^6/uL (4.0-5.2); Red Cell Distribution Width 12.6 % (11.6-14.8); White Blood Cell Count 7.9 X10^3/uL (4.5-11.0)
[2021-06-13 19:11] LABS: Cholesterol 174 mg/dL (140-199); HDL Cholesterol 43 mg/dL (40-60)
[2021-06-13 19:14] LABS: Alanine Aminotransferase 51 IU/L (<35); Albumin Globulin Ratio 1.5 (1.0-2.8); Alkaline Phosphatase 105 U/L (38-126); Aspartate Aminotransferase 43 IU/L (14-36); BUN Creatinine Ratio 30.2 (6-22); Bilirubin Total 0.3 mg/dL (0.2-1.3); Blood Urea Nitrogen 19 mg/dL (7-17); Calcium 9.8 mg/dL (8.4-10.2); Carbon Dioxide 30 mmol/L (22-32); Chloride 101 mmol/L (98-107); Estimated Glomerular Filt Rate > 60.0 mL/min (>60); Globulin 2.6 g/dL (1.7-4.1); Glucose 94 mg/dL (80-110); HEMOLYSIS < 15 (0-50); Potassium 3.6 mmol/L (3.4-5.1); Sodium 137 mmol/L (137-145); Total Protein 6.6 g/dL (6.3-8.2)
[2021-06-13 19:33] LABS: Free T3, Triiodothyronine Free 3.36 pg/mL (2.77-5.27); Free T4, Direct Thyroxine 1.01 ng/dL (0.78-2.19)
[2021-06-13 19:46] LABS: Thyroid Stimulating Hormone 1.63 uIU/mL (0.47-4.68)
[2021-06-13 20:45] LABS: Triglycerides 607 mg/dL (35-150)
== END ==
PROVIDERS: PCP Family Medicine; Referring Provider Plastic Surgery; Visit Provider Plastic Surgery
DX: Z01.818 Encounter for other preprocedural examination (principal); E03.9 Hypothyroidism, unspecified; E78.2 Mixed hyperlipidemia; N64.4 Mastodynia; Z98.82 Breast implant status; T85.44XD Capsular contracture of breast implant, subsequent encounter; N64.89 Other specified disorders of breast; I10 Essential (primary) hypertension
CPT/HCPCS: 36415; 80053; 80061; 84439; 84443; 84481; 85027; 93005; 93010

== ENCOUNTER → 2021-06-16 15:04 | Outpatient (CLI) | payer MEDICARE, SELFPAY ==
--- NOTE | 2021-06-16 | DI.CT.S_ITS ---
PROCEDURE: CT SINUS SCREEN WO CON INDICATIONS: Chronic pansinusitis TECHNIQUE: Noncontrast 3.0 mm axial images acquired from the frontal sinuses to the mid-sella, with coronal and sagittal reformats. For radiation dose reduction, the following was used: automated exposure control, adjustment of mA and/or kV according to patient size. COMPARISON: [facility], CT, CT SINUS SCREEN WO CON, 04/30/2021, 15:15 FINDINGS: Image quality: Excellent. Maxillary Sinuses: Previously seen maxillary sinus mucosal thickening has significantly improved. There is residual mucosal thickening in the left maxillary sinus measuring up to 8 millimeters with a focal ossification at this location redemonstrated. No significant bony remodeling. Ethmoid Air Cells: Mild scattered anterior and posterior ethmoid air cell mucosal thickening. There is mucosal thickening at the sphenoid ethmoid recesses. No bony remodeling. Sphenoid Sinuses: No bony remodeling or destruction. Sinuses are clear. Frontal Sinuses: Frontal sinuses are clear without bony remodeling or destruction. Ostiomeatal Complexes: Ostiomeatal complexes are patent. Bilateral Preston cells, larger and opacified on the left. Miscellaneous: Visualized intra-orbital contents are normal. No melo bullosa or paradoxical turbinate curvature. Unchanged S-shaped moderate nasal septal deviation. IMPRESSION: Improved inflammatory changes and mucosal thickening when compared with the prior study. Some residual left maxillary sinus and bilateral ethmoid air cell mucosal thickening is present. Dictated by: Arvind Sorto M.D. on 06/16/2021 at 15:19 Approved by: Arvind Sorto M.D. on 06/16/2021 at 15:33
== END ==
PROVIDERS: PCP Family Medicine; Referring Provider Otolaryngology; Visit Provider Otolaryngology
DX: J32.4 Chronic pansinusitis (principal)
CPT/HCPCS: 70486

== ENCOUNTER → 2021-10-14 10:11 | Outpatient (CLI) | payer BC, MEDICARE, SELFPAY ==
[2021-10-14 12:01] LABS: COVID19 -Nasal RAPID Negative (Negative)
== END ==
PROVIDERS: PCP Family Medicine; Visit Provider Physical Medicine & Rehabilitation
DX: Z20.822 Contact with and (suspected) exposure to COVID-19 (principal)
CPT/HCPCS: 87635

== ENCOUNTER → 2021-10-14 10:23 | Outpatient (CLI) | payer BC, MEDICARE, SELFPAY ==
[2021-10-14 12:07] LABS: Cholesterol 205 mg/dL (140-199); HDL Cholesterol 51 mg/dL (40-60); Triglycerides 408 mg/dL (35-150)
== END ==
PROVIDERS: PCP Family Medicine; Referring Provider Family Medicine; Visit Provider Family Medicine
DX: E78.2 Mixed hyperlipidemia (principal)
CPT/HCPCS: 36415; 80061

== ENCOUNTER → 2021-10-16 09:08 | Outpatient (CLI) | payer BC, MEDICARE, SELFPAY ==
[2021-10-16 09:38] VITALS: BP 118/84; PULSE 93; RESP 18; O2SAT 100
--- NOTE | 2021-10-16 10:22 | PC.NURSE ---
Dr Tello reviewed Patients plan and with recent bilateral breast augmentation and complications from that, not holding meloxicam x3 days he has decided to cancel todays procedure till another date and meloxicam can be hold x3 days. Educated patient that steroids can also delay healing and risk of bleeding with not holding medications. Gloria in office was notified.
== END ==
PROVIDERS: PCP Family Medicine; Referring Provider Physical Medicine & Rehabilitation; Visit Provider Physical Medicine & Rehabilitation
DX: M47.812 Spondylosis without myelopathy or radiculopathy, cervical region (principal)

== ENCOUNTER → 2021-10-27 08:24 | Outpatient (CLI) | payer BC, MEDICARE, SELFPAY ==
[2021-10-27 09:18] LABS: COVID19 -Nasal RAPID Negative (Negative)
== END ==
PROVIDERS: PCP Family Medicine; Visit Provider Physical Medicine & Rehabilitation
DX: Z20.822 Contact with and (suspected) exposure to COVID-19 (principal)
CPT/HCPCS: 87635; C9803

== ENCOUNTER 2021-10-28 09:12 | Outpatient (CLI) | payer BC, MEDICARE, SELFPAY ==
[2021-10-28] VITALS (9 sets, daily range): BP systolic 105–152; BP diastolic 74–96; PULSE 77–82; RESP 12–20; TEMP 36.3; O2SAT 98–100
--- NOTE | 2021-10-28 09:45 | DI.RAD.S_ITS ---
PROCEDURE: PAIN C/T FACET INJ/BLK 1ST L INDICATIONS: SPINAL STENOSIS COMPARISON: [facility], MR, MR CERVICAL SPINE WO CON, 04/30/2021, 15:21. FINDINGS: Fluoroscopic spot filming was performed to verify placement of spinal needles at the left C3-C4 and C6-C7 level(s), as labeled on the films. Appropriate location(s) of the needle tip(s) was confirmed by injection of iodinated contrast. IMPRESSION: Fluoroscopy for pain management. Dictated by: Mya Hernandez M.D. on 10/28/2021 at 12:05 Approved by: Mya Hernandez M.D. on 10/28/2021 at 12:06
[2021-10-28] MEDS: BUPIVACAINE 0.5% (PF) VIAL 2 ML INJ (10:15)
[2021-10-28] MEDS: DEXAMETHASONE 10 MG/ML VIAL 20 MG INJ (10:15)
[2021-10-28] MEDS: IOPAMIDOL 15 ML VIAL 3 ML INJ (10:15)
[2021-10-28] MEDS: MIDAZOLAM 5 MG/5 ML VIAL 4 MG IV (10:24)
--- NOTE | 2021-10-28 10:26 | P.PCN_ITS ---
Date/Time/Diagnoses Date of procedure: 10/28/21 Time of procedure: 10:27 Pre-procedure diagnosis: 1. FACET ARTHROPATHY 2. AXIAL NECK PAIN Post-procedure diagnosis: same Procedure Notes Procedure: 1. FLUOROSCOPICALLY GUIDED, CONTRAST-CONTROLLED LEFT C3/4 AND C6/7 FACET JOINT INJECTIONS WITH CONSCIOUS SEDATION. Indications: Reny is referred by Dr. Warren for treatment of Axial Neck Pain Physician: Soy Tello Total Fluoroscopy time (seconds): 9 Total sedation minutes: 13 Complications: none Procedure in detail & Post-procedure care: DESCRIPTION OF PROCEDURE Fluoroscopically guided, contrast-controlled left C3/4 and C6/7 facet joint injections with conscious sedation. Following review of allergy and review of potential side effects and complications, including, but not necessarily limited to, infection, allergic reaction, local tissue breakdown, stroke, temporary or permanent nerve injury and paralysis, the patient indicated that the patient understood and agreed to proceed. An informed consent document was signed by the patient, witnessed by a nurse, and placed in the patient's chart. Additionally, other treatment options including medications, modalities, and physical therapy were reviewed with the patient. After review of previous anaesthesic history and IV conscious sedation the patient was deemed safe to proceed with today?s procedure with IV conscious sedation as ASA class II designation. Safety time-out was performed to confirm patient ID, procedure to be performed and site of procedure. IV sedation was accomplished with a combination of 4mg of Versed was administered by the RN after DO order, titrated to patient comfort during the course of the procedure while the patient remained responsive to all verbal commands In the prone position, following sterile prep and drape of the cervical spine region, the posterior aspect of the left C3/4 and C6/7 facet joints were identified fluoroscopically. The skin was anesthetized via a 25-gauge 1.5-inch needle with 1% lidocaine solution into the corresponding facet joints. At this point, a 25-gauge 2.5-inch spinal needle was atraumatically introduced and advanced under fluoroscopic guidance into the corresponding facet joints. Following negative aspiration, injections of approximately 0.2cc of Isovue 200 confirmed interarticular placement without vascular uptake. At this point, a total of 1cc including 0.5cc or 5mg of dexamethasone combined with 0.5cc of 1% lidocaine solution was injected without complication into each of the corresponding facet joints. The procedure tolerated the procedure well without signs or symptoms of complications prior to transfer to the recovery area continued monitoring without incident. The patient was then transferred to the recovery area where they were observed for an appropriate period of time after the injection. The patient reported a VAS score of 7 prior to the procedure and a post- procedure VAS of 0. POST OP INSTRUCTIONS They were provided a Pain Log to continue to record their response to the target-specific procedure prior to their follow-up visit with their referring physician. Additionally, specific post-injection care instructions and a contact number to our office were provided if concerns arise regarding possible complications associated with the procedure are suspected.
== END 2021-10-28 10:48 | disposition home or self-care (01) ==
PROVIDERS: PCP Family Medicine; Referring Provider Physical Medicine & Rehabilitation; Visit Provider Physical Medicine & Rehabilitation
DX: M47.812 Spondylosis without myelopathy or radiculopathy, cervical region (principal)
CPT/HCPCS: 64490; 64491; 99152; J1100; J2250

== ENCOUNTER → 2021-11-10 13:43 | Outpatient (CLI) | payer BC, MEDICARE, SELFPAY ==
[2021-11-10 16:27] LABS: COVID19 -Nasal RAPID POSITIVE (Negative)
== END ==
PROVIDERS: PCP Family Medicine; Visit Provider Family Medicine Sleep Medicine
DX: Z20.822 Contact with and (suspected) exposure to COVID-19 (principal)
CPT/HCPCS: 87635; C9803

== ENCOUNTER → 2021-11-11 10:43 | Outpatient (CLI) | payer BC, MEDICARE, SELFPAY ==
[2021-11-11 12:45] LABS: COVID19 -Nasal RAPID POSITIVE (Negative)
== END ==
PROVIDERS: PCP Family Medicine; Visit Provider Family Medicine Sleep Medicine
DX: Z20.822 Contact with and (suspected) exposure to COVID-19 (principal)
CPT/HCPCS: 87635; C9803

== ENCOUNTER → 2022-01-13 12:07 | Outpatient (CLI) | payer BC, MEDICARE, SELFPAY ==
[2022-01-13 13:08] LABS: Add Manual Diff / Slide Review NO; Basophils Absolute Auto 0 /uL (0-100); Basophils Percent Auto 0.9 % (0-2); Eosinophils Absolute Auto 300 /uL (0-450); Eosinophils Percent Auto 6.9 % (2-4); Hematocrit 37.2 % (36-46); Lymphocytes Absolute Auto 1400 /uL (1100-4500); Lymphocytes Percent Auto 30.2 % (25-40); Mean Corpuscular Hemoglobin 30.1 PG (26-34); Monocytes Absolute Auto 400 /uL (0-900); Monocytes Percent Auto 8.6 % (3-14); Neutrophils Absolute Auto 2500 /uL (1500-7000); Neutrophils Percent Auto 53.4 % (50-75); Platelet Count 250 X10^3/uL (150-400); Red Blood Cell Count 4.33 X10^6/uL (4.0-5.2); Red Cell Distribution Width 13.2 % (11.6-14.8); White Blood Cell Count 4.6 X10^3/uL (4.5-11.0)
[2022-01-13 13:31] LABS: Alanine Aminotransferase 35 IU/L (<35); Albumin 4.4 g/dL (3.5-5.0); Albumin Globulin Ratio 1.8 (1.0-2.8); Alkaline Phosphatase 57 U/L (38-126); Aspartate Aminotransferase 44 IU/L (14-36); BUN Creatinine Ratio 18.5 (6-22); Bilirubin Total 0.4 mg/dL (0.2-1.3); Blood Urea Nitrogen 17 mg/dL (7-17); Calcium 9.1 mg/dL (8.4-10.2); Carbon Dioxide 28 mmol/L (22-32); Chloride 102 mmol/L (98-107); Cholesterol 159 mg/dL (140-199); Estimated Glomerular Filt Rate > 60 mL/min (>60); Globulin 2.4 g/dL (1.7-4.1); Glucose 94 mg/dL (80-110); HDL Cholesterol 55 mg/dL (40-60); HEMOLYSIS < 15 (0-50); LDL Cholesterol Calculated 66 mg/dL (<100); Potassium 3.9 mmol/L (3.4-5.1); Sodium 138 mmol/L (137-145); Total Protein 6.8 g/dL (6.3-8.2); Triglycerides 190 mg/dL (35-150)
[2022-01-13 13:46] LABS: Free T3, Triiodothyronine Free 3.18 pg/mL (2.77-5.27); Free T4, Direct Thyroxine 1.05 ng/dL (0.78-2.19)
[2022-01-13 14:00] LABS: Thyroid Stimulating Hormone 1.73 uIU/mL (0.47-4.68)
[2022-01-13 17:16] LABS: Vitamin D 25 Hydroxy (D3) 34.9 ng/mL (30.0-100.0)
== END ==
PROVIDERS: PCP Family Medicine; Referring Provider Family Medicine; Visit Provider Family Medicine
DX: R74.8 Abnormal levels of other serum enzymes (principal); E78.1 Pure hyperglyceridemia; E03.9 Hypothyroidism, unspecified; J32.4 Chronic pansinusitis; J34.89 Other specified disorders of nose and nasal sinuses; J34.2 Deviated nasal septum; J34.3 Hypertrophy of nasal turbinates; Z20.822 Contact with and (suspected) exposure to COVID-19
CPT/HCPCS: 36415; 80053; 80061; 82306; 84439; 84443; 84481; 85025; U0003; U0005

== ENCOUNTER → 2022-01-13 16:06 | Outpatient (ROUT) | payer BC, MEDICARE, SELFPAY ==
[2022-01-13 17:21] LABS: COVID-19 CEPHEID PCR (VTM/NP) Negative (Negative)
== END ==
PROVIDERS: PCP Family Medicine; Visit Provider Otolaryngology
DX: J32.4 Chronic pansinusitis (principal); J34.89 Other specified disorders of nose and nasal sinuses; J34.2 Deviated nasal septum; J34.3 Hypertrophy of nasal turbinates; Z20.822 Contact with and (suspected) exposure to COVID-19
CPT/HCPCS: U0003; U0005

== ENCOUNTER 2022-01-15 09:24 | Day surgery (SDC) | payer BC, MEDICARE, SELFPAY ==
[2021-11-10 12:02] VITALS: BMI 23.4
[2022-01-15] VITALS (7 sets, daily range): BP systolic 120–161; BP diastolic 70–98; PULSE 70–95; RESP 13–24; TEMP 35.9–37.3; O2SAT 95–99; BMI 23.4
[2022-01-15] MEDS: LACTATED RINGERS 1,000 ML 42 ML IV ×2 (10:25→13:37)
[2022-01-15] MEDS: OXYMETAZOLINE NASAL SPRAY 15 ML 2 SPRAYS NASAL (10:26)
[2022-01-15] MEDS: SCOPOLAMINE 1 PATCH TOP (10:56)
--- NOTE | 2022-01-15 10:58 | PM.PREOP ---
Pre-operative Note Interval Note History & Physical reviewed/Exam performed by Physician: Yes Changes to H&P: No
--- NOTE | 2022-01-15 10:59 | PM.HP.1 ---
History of Present Illness History of Present Illness Date Patient Seen: 01/15/22 Chief complaint: SDC Narrative: 61-year-old female with known chronic sinusitis and nasal obstruction, last seen in clinic 10/15/2021, presents for surgical intervention. She was initially treated with Augmentin 08/14/2021, then Ceftin /16 and 12/10, remains symptomatic. No other interval health changes, wishes to proceed. Surgery was initially delayed due to a COVID positive otherwise asymptomatic diagnosis 11/10/2021. Patient History Medical History Acute bacterial sinusitis Cervical radiculopathy at C7 Chronic right hip pain Chronic sinusitis Chronic, continuous use of opioids COVID-19 virus infection (11/10/21) Degenerative joint disease of right hip Depression (Unknown) Depression Facet arthropathy, cervical Familial hypertriglyceridemia Fatigue Foraminal stenosis of cervical region Generalized anxiety disorder with panic attacks Hyperlipemia (Unknown) Hypothyroidism (acquired) Post-traumatic stress disorder, chronic Postmenopausal symptoms Postoperative pain Productive cough Seasonal allergic rhinitis TMJ (dislocation of temporomandibular joint) TMJ articul disc disordr Surgical History H/O wrist surgery History of total abdominal hysterectomy and bilateral salpingo-oophorectomy (~1992) Hx of neck surgery (Unknown) Hx of shoulder surgery Family & Social History Family History Mother Hypertension Alcohol abuse Father No problems noted. Social History: household members spouse Tobacco & Substance use: Smoking Status Never smoker alcohol intake current alcohol intake frequency a few times a week Substance Use Type does not use Meds Home Medications and Allergies Home Medications Medication Instructions Recorded Confirmed Type albuterol sulfate 90 mcg/actuation 2 puff inhalation Q4-6H PRN 02/21/19 11/10/21 Rx aerosol inhaler (ProAir HFA) shortness of breath #6.7 grams Handicap parking sticker #1 ea 07/25/19 10/17/21 Rx lidocaine 5 % topical patch 1 patch topical DAILY #30 ea 10/17/19 11/10/21 Rx amitriptyline 50 mg tablet 100 mg PO BEDTIME #180 tabs 07/10/21 01/15/22 Rx candesartan 16 mg tablet 8 mg PO DAILY #90 tabs 07/19/21 01/15/22 Rx carvedilol 6.25 mg tablet See Rx Instructions .Route 07/19/21 01/15/22 Rx .COMPLEX #180 tabs hydrochlorothiazide 25 mg tablet See Rx Instructions .Route 07/24/21 01/15/22 Rx .COMPLEX #90 tabs diclofenac sodium 1 % topical gel 2 g topical QID #100 grams 07/28/21 11/10/21 Rx (Arthritis Pain (diclofenac)) levothyroxine 50 mcg tablet See Rx Instructions .Route 09/15/21 01/15/22 Rx (Euthyrox) .COMPLEX #90 tabs cyclobenzaprine 10 mg tablet 10 mg PO BID PRN muscle spasm 09/24/21 01/15/22 History diazepam 10 mg tablet (Valium) 10 mg PO .COMPLEX PRN 1-2 prior to 09/24/21 01/15/22 Rx MRI and for possible steroid flare #10 tabs ibuprofen 800 mg tablet 800 mg PO BID 09/24/21 11/10/21 History fenofibrate 120 mg tablet 120 mg PO DAILY #90 tabs 10/17/21 01/15/22 Rx bupropion HCl 150 mg 24 hr tablet, 300 mg PO QAM #60 tabs 11/10/21 01/15/22 Rx extended release mirtazapine 15 mg tablet 15 mg PO BEDTIME #90 tabs 11/10/21 01/15/22 Rx rosuvastatin 20 mg tablet See Rx Instructions .Route 12/25/21 01/15/22 Rx .COMPLEX #90 tabs montelukast 10 mg tablet 10 mg PO BEDTIME 12/29/21 01/15/22 History piroxicam 20 mg capsule (Feldene) 20 mg PO DAILY #30 caps 12/29/21 01/15/22 Rx oxycodone 5 mg tablet 5 mg PO TID PRN pain #90 tabs 01/07/22 01/15/22 Rx Allergies Allergy/AdvReac Type Severity Reaction Status Date / Time No Known Drug Allergies Allergy Verified 12/29/21 12:16 Review of Systems Review of Systems Narrative: Negative except as listed in the HPI Exam Vital Signs (past 8 hours): - 01/15/22 10:12 Temperature 96.7 F L Pulse Rate 84 Respiratory Rate 16 Blood Pressure 161/98 H Pulse Oximetry 99 Oxygen Delivery Method Room Air Oxygen Delivery Method Room Air Narrative Exam Narrative: Well-developed well-nourished female in no acute distress heart regular rate and rhythm without murmur, lungs clear to auscultation bilaterally Assessment & Plan Assessment & Plan narrative: Assessment: Chronic rhinosinusitis, nasal airway obstruction, septal deviation, inferior turbinate hypertrophy, chronic cough Plan: Following discussion of the material risks benefits complications and alternatives the patient elected proceed with septoplasty, bilateral inferior turbinate reduction, and bilateral anterior endoscopic sinus surgery. Time Spent With Patient Critical Care time: I spent a total of [] minutes of critical care time on this patient's care today; this time is exclusive of procedural time.
--- NOTE | 2022-01-15 11:03 | P.OP_ITS ---
Operative Date/Time/Diagnoses Date of procedure: 01/15/22 Time of procedure: 13:35 Pre-op diagnosis: Chronic rhinosinusitis, nasal airway obstruction, septal deviation, inferior turbinate hypertrophy, chronic cough Post-op diagnosis: same Procedure & Clinicians Procedure: 1. Bilateral endoscopic maxillary antrostomy 2. Bilateral endoscopic anterior ethmoidectomy 3. Septoplasty 4. Bilateral inferior turbinate reduction via intramural cautery Same procedure as scheduled: Yes Indications: 61-year-old female with the above diagnoses incompletely managed with medical therapy presents for the above procedures. Following discussion of the material risks benefits complications and alternatives, she elected to proceed. Surgeon: Trenton Miller Click Yes if Unassisted: Yes Anesthesia Type: General and Local Operative Notes Findings: 1 to 2+ right septal deviation, atrophic central anterior septal mucosa RIGHT, absent >1cm square cartilage but intact LEFT mucosal flap, sig oozing during the septoplasty but very dry sinus portion, no mucosal inflammation,m sinuses clear. left greater than right inferior turbinate hypertrophy. The microdebrider was nonfunctional and therefore could not be used during the case. Estimated Blood Loss (mL): 230 Procedure in detail: Following identification and confirmation of consent as well as preoperative Afrin nasal spray, the patient was brought to the operating room suite and placed in the supine position. General endotracheal anesthesia was administered. I infiltrated the septum widely bilaterally with 1% lidocaine 1 100,000 epinephrine followed by temporary packing with cotton with Afrin and 4% lidocaine. Following sterile prep and drape, the packing was removed and I performed a right goldy-transfixion incision, elevated the right mucoperichondrial and mucoperiosteal flap, although difficult due to findings listed above. I disarticulated near the bony/cartilaginous junction and elevated the left mucoperiosteal flap. Deviated portions of the perpendicular plate of the ethmoid and vomer were resected. The residual quadrilateral cartilage was further straightened by trimming it inferiorly as well as reducing the maxillary crest. A 2 mm strip of cartilage paralleling the residual 1 cm dorsal and caudal strut was resected to further straighten the quadrilateral cartilage. The hemitransfixion incision was closed with interrupted 5 0 chromic followed by a running 4 0 plain gut mattress suture to reapproximate the septal flaps. The head of each inferior turbinate had been previously infiltrated with additional local anesthetic and a 25 gauge spinal needle was used to impale the length of the turbinate, with cautery on a setting of 15 activated on slow withdrawal over 2 passes each side. The turbinates were then outfractured. Under endoscopic guidance the posterior and anterior superior insertion of each middle turbinate was then infiltrated with additional local anesthetic via spinal needle, after cotton pledgets with 1:1000 epinephrine had been placed in the middle meatus for 10min. Beginning on the left side, the middle turbinate was slightly medialized and the uncinate process was identified with uncinectomy performed via the backbiting forceps and through-cutting forceps. The natural os of the maxillary sinus was identified and enlarged posteriorly and inferiorly with forceps. Anterior ethmoidectomy was performed by removing the ethmoid bulla with instruments. This procedure was repeated on the right side with identical findings. At case completion, 20/1000th of an inch silastic splints were placed bilaterally, sutured anteriorly with a single 4 0 nylon, with the posterior ends deliberately within the middle meatus to prevent lateralization of the middle turbinates. The procedure completed, sponge and needle counts were correct and the patient was extubated in the operating room and taken to recovery room in stable condition without known complication. Complications: none Post-operative Condition: stable Disposition: same day surgery Plan for aftercare: Nasal saline every hour while awake, begin irrigations t.i.d. tomorrow. Polysporin to the nostrils at all times, Tylenol alternating with Advil for pain control, oxycodone for breakthrough pain. Elevate head of bed, no nose blowing, no straining for 2 weeks. Ice directly under the nose on the upper lip has to lerated 24-48 hours at a minimum. Follow-up in 1 week for nasal splint removal.
--- NOTE | 2022-01-15 12:12 | SUR.OPER ---
Supine on padded OR bed, head on pillow, arms padded with gel pads and tucked at sides, legs uncrossed, safety belt at thigh, tape over blanket over lower legs . Directed and approved by surgical attending
[2022-01-15] MEDS: BACITRACIN OINT 0.9 GM PCKT 1 APPLIC TOP (12:17)
[2022-01-15] MEDS: EPINEPHrine 1 MG/ML 5 MG TOP (12:17)
[2022-01-15] MEDS: LIDOCAINE 4% SOLN 50 ML TOP (12:18)
[2022-01-15] MEDS: LIDOCAINE 1% W/EPI 10 ML INJ (12:19)
== END 2022-01-15 14:47 | disposition home or self-care (01) ==
PROVIDERS: PCP Family Medicine; Referring Provider Otolaryngology; Visit Provider Otolaryngology
PROC: (CPT 31231; principal; 2022-01-15 10:30)
PROC: (CPT 30520; 2022-01-15 10:30)
DX: J32.4 Chronic pansinusitis (principal); J34.89 Other specified disorders of nose and nasal sinuses; J34.3 Hypertrophy of nasal turbinates; J34.2 Deviated nasal septum; R09.82 Postnasal drip; E03.9 Hypothyroidism, unspecified; I10 Essential (primary) hypertension; E78.5 Hyperlipidemia, unspecified; F32.A Depression, unspecified; F43.10 Post-traumatic stress disorder, unspecified
CPT/HCPCS: 31254; 31256; 30520; 30802; A9270; J0171; J0330; J1100; J2250; J2405; J2704; J3010

== ENCOUNTER 2022-02-05 10:17 | Outpatient (CLI) | payer BC, MEDICARE, SELFPAY | END 2022-02-09 09:45 | disposition home or self-care (01) | LOC: PHYS 10:18 | PROVIDERS: PCP Family Medicine; Referring Provider Physical Medicine & Rehabilitation; Visit Provider Physical Medicine & Rehabilitation | DX: M54.12 Radiculopathy, cervical region (principal); Z98.1 Arthrodesis status | CPT/HCPCS: 95886; 95912 ==

== ENCOUNTER → 2022-03-24 10:26 | Outpatient (CLI) | payer BC, MEDICARE, SELFPAY ==
[2022-03-24 12:03] LABS: COVID19 -Nasal RAPID Negative (Negative)
== END ==
PROVIDERS: PCP Family Medicine; Visit Provider Physical Medicine & Rehabilitation
DX: Z20.822 Contact with and (suspected) exposure to COVID-19 (principal)
CPT/HCPCS: 87635; C9803

== ENCOUNTER 2022-03-26 08:47 | Outpatient (CLI) | payer BC, MEDICARE, SELFPAY ==
[2022-03-26] VITALS (9 sets, daily range): BP systolic 119–154; BP diastolic 73–98; PULSE 73–81; RESP 16–20; TEMP 36.6; O2SAT 99–100
--- NOTE | 2022-03-26 08:50 | DI.RAD.S_ITS ---
PROCEDURE: PAIN C/T INTERLAMINAR INJECT INDICATIONS: SPINAL STENOSIS COMPARISON: [facility], , PAIN C/T INTERLAMINAR INJECT, 04/16/2020, 12:19. FINDINGS: Fluoroscopic spot filming was performed to verify placement of a spinal needle at the C6-C7 level, as labeled on the films. Appropriate location of the needle tip was confirmed by injection of iodinated contrast. IMPRESSION: No significant intraprocedural abnormality. Dictated by: Kodak Deshpande M.D. on 03/26/2022 at 13:13 Approved by: Kodak Deshpande M.D. on 03/26/2022 at 13:14
--- NOTE | 2022-03-26 09:06 | PC.NURSE ---
Patient has hard splint to left arm, reports that she has a severe sprain. Happened last week. Patient reports she will do her best to place her hand back for the procedure. Dr quevedo notified.
[2022-03-26] MEDS: MIDAZOLAM 2 MG/2 ML VIAL IV (10:07)
[2022-03-26] MEDS: BUPIVACAINE 0.25% (PF) VIAL 2 ML INJ (10:11)
[2022-03-26] MEDS: IOPAMIDOL 15 ML VIAL 3 ML INJ (10:11)
[2022-03-26] MEDS: DEXAMETHASONE 10 MG/ML VIAL 30 MG INJ (10:12)
--- NOTE | 2022-03-26 10:22 | P.PCN_ITS ---
Date/Time/Diagnoses Date of procedure: 03/26/22 Time of procedure: 10:23 Pre-procedure diagnosis: 1. CERVICAL STENOSIS, 2. CERVICAL HNP WITH UPPER EXTREMITY RADICULAR FEATURES Post-procedure diagnosis: same Procedure Notes Procedure: 1. FLUORSCOPICALLY GUIDED CONTRAST CONTROLLED INTERLAMINAR EPIDURAL STEROID INJECTION - C6/7 TL JOSE LUIS Indications: Reny is referred by Dr. Warren for treatment of Cervical HNP with Upper Extremity Paresthesias. Physician: Soy Tello Total Fluoroscopy time (seconds): 24 Total sedation minutes: 12 Complications: none Procedure in detail & Post-procedure care: FINDINGS Cervical Stenosis due to disc deterioration and nerve root irritation and nerve root irritation DESCRIPTION OF PROCEDURE Fluoroscopically guided, contrast-controlled C6/7 translaminar epidural steroid injection with conscious sedation. Following review of allergy and review of potential side effects and complications, including, but not necessarily limited to, infection, allergic reaction, local tissue breakdown, temporary as well as permanent nerve injury, stroke, paralysis, and possible , the patient indicated that patient understood and agreed to proceed. An informed consent document was signed by the patient, witnessed by a nurse, and placed in the patient's chart. Additionally, other treatment options including modalities, medications, and physical therapy were reviewed with the patient. After review of previous anaesthesic history and IV conscious sedation the patient was deemed safe to proceed with today?s procedure with IV conscious sedation as ASA class II designation. Safety time-out was performed to confirm patient ID, procedure to be performed and site of procedure. IV sedation was accomplished with a combination of 2mg of Versed administered by the RN after DO order, titrated to patient comfort during the course of the procedure while the patient remained responsive to all verbal commands. In the prone position, following sterile prep and drape of the cervical region, the C6/7 translaminar space was identified fluoroscopically. The skin was anesthetized via a 25-gauge 1.5-inch needle with 1% lidocaine solution. At this point, a 25-gauge, 2.5-inch short bevel spinal needle was atraumatically introduced and advanced under fluoroscopic guidance into epidural space at the C6/7 translaminar space. Depth was confirmed on lateral view. Radiological data, including multiple fluoroscopic views of the cervical spine, reveal a spinal needle at the C6/7 translaminar space. Lateral views then show placement of the needle in the epidural space. Subsequent views show contrast material flowing superiorly and inferiorly in the epidural space. DSA fluoroscopy with live contrast injection, once again, confirmed no vascular or intrathecal uptake. At this point, using loss of resistance technique with saline and air, the epidural space was entered. Following negative aspiration, injection of approximately 1.5 cc of Isovue-200 with live fluoroscopy in the AP view confirmed epidural flow in the epidural space without vascular or intrathecal uptake observed. Subsequently, a test dose of 1 cc of 1% lidocaine solution was injected and patient was observed for two minutes without signs or symptoms of complications, including abdominal pain, shortness of breath, bilateral upper or lower extremity weakness, nausea and vomiting, prior to steroid injection. At this point, 3cc or 30mg of dexamethasone was then injected without incident. The patient tolerated the procedure well without signs or symptoms of compli cations prior to being transferred to the recovery area for further monitoring, The patient was then transferred to the recovery area where they were observed for an appropriate period of time after the injection. The patient reported a VAS score of 6 prior to the procedure and a post-procedure VAS of 0. POST OP INSTRUCTIONS The patient was provided a Pain Log to continue to record their response to the target-specific procedure prior to follow-up visit with the referring provider. Additionally, specific post-injection care instructions and a contact number to our office were provided if concerns arise regarding possible complications associated with the procedure are suspected.
== END 2022-03-26 10:50 | disposition home or self-care (01) ==
PROVIDERS: PCP Family Medicine; Referring Provider Physical Medicine & Rehabilitation; Visit Provider Physical Medicine & Rehabilitation
DX: M48.02 Spinal stenosis, cervical region (principal); M50.123 Cervical disc disorder at C6-C7 level with radiculopathy
CPT/HCPCS: 62321; 99152; J1100; J2250; J3490

== ENCOUNTER → 2022-04-30 16:02 | Outpatient (CLI) | payer BC, MEDICARE, SELFPAY ==
--- NOTE | 2022-04-30 16:06 | DI.RAD.S_ITS ---
PROCEDURE: XR HIP W PEL IF DONE RT 2V INDICATIONS: worsening hip pain TECHNIQUE: AP pelvis with lateral view(s) of the right hip(s). COMPARISON: [facility], , XR HIP W PEL IF DONE RT 2V, 11/19/2020, 12:11. FINDINGS: Bones: No fractures or dislocations. Asymmetric moderate right hip joint osteoarthritic changes are seen. No evidence of avascular necrosis of femoral head. Pelvic ring appears intact. No suspicious bony lesions. Soft tissues: The visualized bowel gas pattern is normal. No suspicious soft tissue calcifications. IMPRESSION: Asymmetric moderate right hip joint osteoarthritis. No acute fracture or dislocation. No evidence of avascular necrosis. Dictated by: Donnie Kirk M.D. on 05/01/2022 at 8:13 Approved by: Donnie Kirk M.D. on 05/01/2022 at 8:14
== END ==
PROVIDERS: PCP Family Medicine; Referring Provider Family Medicine; Visit Provider Family Medicine
DX: M16.11 Unilateral primary osteoarthritis, right hip (principal)
CPT/HCPCS: 73502

== ENCOUNTER → 2022-11-25 13:21 | Outpatient (CLI) | payer BC, MEDICARE, SELFPAY ==
--- NOTE | 2022-11-25 13:23 | DI.RAD.S_ITS ---
PROCEDURE: XR HIP W PEL IF DONE RT 2V INDICATIONS: Hip pain TECHNIQUE: AP pelvis with lateral view(s) of the right hip(s). COMPARISON: [facility], , XR HIP W PEL IF DONE RT 2V, 04/30/2022, 16:36. FINDINGS: Bones: Degenerative changes of both hips, worse on the right with joint space narrowing, subchondral sclerosis, and subchondral cystic changes. No fractures or dislocations. Pelvic ring appears intact. No suspicious bony lesions. Soft tissues: The visualized bowel gas pattern is normal. No suspicious soft tissue calcifications. IMPRESSION: Asymmetric moderate right hip joint osteoarthritis. No significant change compared to 04/30/2022. Dictated by: Humberto Richey M.D. on 11/25/2022 at 14:43 Approved by: Humberto Richey M.D. on 11/25/2022 at 14:44
== END ==
PROVIDERS: PCP Family Medicine; Referring Provider Family Medicine; Visit Provider Family Medicine
DX: M19.90 Unspecified osteoarthritis, unspecified site (principal)
CPT/HCPCS: 73502

== ENCOUNTER → 2023-01-04 14:24 | Outpatient (CLI) | payer BC, MEDICARE, SELFPAY ==
--- NOTE | 2023-01-04 14:25 | DI.RAD.S_ITS ---
PROCEDURE: XR CERVICAL SPINE 4V OR 5V INDICATIONS: CERVICAL SPONDYLOSIS WITH RADICULOPATHY TECHNIQUE: 5 views of the cervical spine acquired. COMPARISON: [facility], CR, XR CERVICAL SPINE 4V OR 5V, 03/13/2020, 10:27. [facility], CR, XR CERVICAL SPINE 4V OR 5V, 10/14/2018, 12:16. FINDINGS: Bones: No fractures or dislocations to the C6 level. Oblique images demonstrate no bony foraminal stenoses. ACDF C4 through C6, without hardware complication. Moderate disc height loss at C6-7. Mild disc height loss at C3-4. Diffuse facet arthrosis. Soft tissues: No prevertebral soft tissue swelling. IMPRESSION: ACDF of C4 through C6, without hardware complication. Moderate disc height loss at C6-7 and mild disc height loss at C3-4. Diffuse facet arthrosis. No bony foraminal stenosis. Dictated by: Taqueria Mckeon M.D. on 01/04/2023 at 15:47 Approved by: Taqueria Mckeon M.D. on 01/04/2023 at 15:48
== END ==
PROVIDERS: PCP Family Medicine; Referring Provider Physical Medicine & Rehabilitation; Visit Provider Physical Medicine & Rehabilitation
DX: M47.22 Other spondylosis with radiculopathy, cervical region (principal)
CPT/HCPCS: 72050

== ENCOUNTER → 2023-01-19 12:38 | Outpatient (CLI) | payer BC, MEDICARE, SELFPAY ==
[2023-01-19 13:12] LABS: Add Manual Diff / Slide Review NO; Basophils Absolute Auto 0 /uL (0-100); Basophils Percent Auto 0.5 % (0-2); Eosinophils Absolute Auto 200 /uL (0-450); Eosinophils Percent Auto 2.6 % (2-4); Hematocrit 41.6 % (36-46); Hemoglobin 14.3 g/dL (12.0-16.0); Lymphocytes Absolute Auto 1700 /uL (1100-4500); Mean Corpuscular HGB Conc 34.4 % (30-36); Mean Corpuscular Hemoglobin 28.7 PG (26-34); Mean Corpuscular Volume 83.4 fL (80-100); Monocytes Absolute Auto 600 /uL (0-900); Monocytes Percent Auto 6.9 % (3-14); Neutrophils Absolute Auto 6400 /uL (1500-7000); Platelet Count 272 X10^3/uL (150-400); Red Blood Cell Count 4.99 X10^6/uL (4.0-5.2); Red Cell Distribution Width 14.1 % (11.6-14.8); White Blood Cell Count 9.1 X10^3/uL (4.5-11.0)
[2023-01-19 13:59] LABS: BUN Creatinine Ratio 20.6 (6-22); Blood Urea Nitrogen 14 mg/dL (7-17); Calcium 9.5 mg/dL (8.4-10.2); Carbon Dioxide 30 mmol/L (22-32); Chloride 97 mmol/L (98-107); Estimated Glomerular Filt Rate > 60 mL/min (>60); Glucose 92 mg/dL (80-110); HEMOLYSIS < 15 (0-50); Sodium 134 mmol/L (137-145)
== END ==
PROVIDERS: PCP Family Medicine; Referring Provider Family Medicine; Visit Provider Family Medicine
DX: Z01.818 Encounter for other preprocedural examination (principal)
CPT/HCPCS: 36415; 80048; 85025; 93005

== ENCOUNTER 2023-01-26 08:38 | Outpatient (CLI) | payer BC, MEDICARE, SELFPAY ==
[2023-01-26] VITALS (9 sets, daily range): BP systolic 118–166; BP diastolic 69–101; PULSE 65–73; RESP 16–20; TEMP 36.6; O2SAT 94–100
--- NOTE | 2023-01-26 08:39 | DI.RAD.S_ITS ---
PROCEDURE: PAIN C/T FACET INJ/BLK 1ST L INDICATIONS: SPINAL STENOSIS COMPARISON: [facility], , PAIN C/T FACET INJ/BLK 1ST L, 10/28/2021, 10:16. FINDINGS: Fluoroscopic spot filming was performed to verify placement of spinal needles at the left C3-C4 and C6-C7 level(s), as labeled on the films. Appropriate location(s) of the needle tip(s) was confirmed by injection of iodinated contrast. IMPRESSION: Intraprocedural examination within normal limits. Dictated by: Kodak Deshpande M.D. on 01/26/2023 at 10:52 Approved by: Kodak Deshpande M.D. on 01/26/2023 at 10:52
[2023-01-26] MEDS: DEXAMETHASONE 10 MG/ML VIAL 30 MG INJ (09:44)
[2023-01-26] MEDS: BUPIVACAINE 0.5% (PF) 10 ML VIAL 2 ML INJ (09:44)
[2023-01-26] MEDS: IOPAMIDOL 15 ML VIAL 3 ML INJ (09:45)
[2023-01-26] MEDS: MIDAZOLAM 2 MG/2 ML VIAL 4 MG IV (09:47)
--- NOTE | 2023-01-26 10:02 | P.PCN_ITS ---
Date/Time/Diagnoses Date of procedure: 01/26/23 Time of procedure: 10:02 Pre-procedure diagnosis: 1. FACET ARTHROPATHY 2. AXIAL NECK PAIN Post-procedure diagnosis: same Procedure Notes Procedure: 1. FLUOROSCOPICALLY GUIDED, CONTRAST-CONTROLLED LEFT C3/4 AND C6/7 FACET JOINT INJECTIONS WITH CONSCIOUS SEDATION. Indications: Reny is referred by Dr. Warren for treatment of Axial Neck Pain Physician: Soy Tello Total Fluoroscopy time (seconds): 12 Total sedation minutes: 14 Complications: none Procedure in detail & Post-procedure care: DESCRIPTION OF PROCEDURE Fluoroscopically guided, contrast-controlled left C3/4 and C6/7 facet joint injections with conscious sedation. Following review of allergy and review of potential side effects and complications, including, but not necessarily limited to, infection, allergic reaction, local tissue breakdown, stroke, temporary or permanent nerve injury and paralysis, the patient indicated that the patient understood and agreed to proceed. An informed consent document was signed by the patient, witnessed by a nurse, and placed in the patient's chart. Additionally, other treatment options including medications, modalities, and physical therapy were reviewed with the patient. After review of previous anaesthesic history and IV conscious sedation the patient was deemed safe to proceed with today?s procedure with IV conscious sedation as ASA class II designation. Safety time-out was performed to confirm patient ID, procedure to be performed and site of procedure. IV sedation was accomplished with a combination of 4mg of Versed was administered by the RN after DO order, titrated to patient comfort during the course of the procedure while the patient remained responsive to all verbal commands In the prone position, following sterile prep and drape of the cervical spine region, the posterior aspect of the left C3/4 and C6/7 facet joints were identified fluoroscopically. The skin was anesthetized via a 25-gauge 1.5-inch needle with 1% lidocaine solution into the corresponding facet joints. At this point, a 25-gauge 2.5-inch spinal needle was atraumatically introduced and advanced under fluoroscopic guidance into the corresponding facet joints. Following negative aspiration, injections of approximately 0.2cc of Isovue 200 confirmed interarticular placement without vascular uptake. At this point, a total of 1cc including 0.5cc or 5mg of dexamethasone combined with 0.5cc of 1% lidocaine solution was injected without complication into each of the corresponding facet joints. The procedure tolerated the procedure well without signs or symptoms of complications prior to transfer to the recovery area continued monitoring without incident. The patient was then transferred to the recovery area where they were observed for an appropriate period of time after the injection. The patient reported a VAS score of 8 prior to the procedure and a post- procedure VAS of 1. POST OP INSTRUCTIONS They were provided a Pain Log to continue to record their response to the target-specific procedure prior to their follow-up visit with their referring physician. Additionally, specific post-injection care instructions and a contact number to our office were provided if concerns arise regarding possible complications associated with the procedure are suspected.
== END 2023-01-26 10:19 | disposition home or self-care (01) ==
PROVIDERS: PCP Family Medicine; Referring Provider Physical Medicine & Rehabilitation; Visit Provider Physical Medicine & Rehabilitation
DX: M47.812 Spondylosis without myelopathy or radiculopathy, cervical region (principal)
CPT/HCPCS: 64490; 64491; 99152; J1100; J2250

== ENCOUNTER → 2023-04-02 13:01 | Outpatient (CLI) | payer BC, MEDICARE, SELFPAY ==
[2023-04-02 15:02] LABS: Add Manual Diff / Slide Review NO; Basophils Absolute Auto 100 /uL (0-100); Basophils Percent Auto 1.2 % (0-2); Eosinophils Absolute Auto 300 /uL (0-450); Eosinophils Percent Auto 4.8 % (2-4); Hematocrit 35.2 % (36-46); Hemoglobin 12.1 g/dL (12.0-16.0); Lymphocytes Absolute Auto 1800 /uL (1100-4500); Lymphocytes Percent Auto 30.2 % (25-40); Mean Corpuscular HGB Conc 34.3 % (30-36); Mean Corpuscular Hemoglobin 29.1 PG (26-34); Mean Corpuscular Volume 84.8 fL (80-100); Monocytes Absolute Auto 400 /uL (0-900); Monocytes Percent Auto 7.2 % (3-14); Neutrophils Absolute Auto 3300 /uL (1500-7000); Neutrophils Percent Auto 56.6 % (50-75); Platelet Count 311 X10^3/uL (150-400); Red Blood Cell Count 4.16 X10^6/uL (4.0-5.2); Red Cell Distribution Width 14.1 % (11.6-14.8); White Blood Cell Count 5.8 X10^3/uL (4.5-11.0)
[2023-04-02 15:27] LABS: Alanine Aminotransferase 21 IU/L (<35); Albumin 4.5 g/dL (3.5-5.0); Albumin Globulin Ratio 1.7 (1.0-2.8); Alkaline Phosphatase 72 U/L (38-126); Aspartate Aminotransferase 30 IU/L (14-36); Bilirubin Total 0.4 mg/dL (0.2-1.3); Blood Urea Nitrogen 14 mg/dL (7-17); Carbon Dioxide 29 mmol/L (22-32); Chloride 99 mmol/L (98-107); Cholesterol 139 mg/dL (140-199); Estimated Glomerular Filt Rate > 60 mL/min (>60); Globulin 2.6 g/dL (1.7-4.1); Glucose 85 mg/dL (80-110); HDL Cholesterol 71 mg/dL (40-60); HEMOLYSIS < 15 (0-50); LDL Cholesterol Calculated 46 mg/dL (<100); Sodium 136 mmol/L (137-145); Total Protein 7.1 g/dL (6.3-8.2); Triglycerides 111 mg/dL (35-150)
[2023-04-02 15:57] LABS: TSH w/ Reflex to FT4 1.79 uIU/mL (0.47-4.68)
== END ==
PROVIDERS: PCP Family Medicine; Referring Provider Family Medicine; Visit Provider Family Medicine
DX: E03.9 Hypothyroidism, unspecified (principal); E78.1 Pure hyperglyceridemia; E78.2 Mixed hyperlipidemia; I10 Essential (primary) hypertension
CPT/HCPCS: 36415; 80053; 80061; 84443; 85025

== ENCOUNTER 2023-06-23 14:48 | Outpatient (CLI) | payer BC, MEDICARE, SELFPAY ==
[2023-06-23] VITALS (7 sets, daily range): BP systolic 95–113; BP diastolic 63–79; PULSE 82–89; RESP 18–21; O2SAT 94–98
[2023-06-23] MEDS: MIDAZOLAM 2 MG/2 ML VIAL 1 MG IV (15:30)
--- NOTE | 2023-06-23 15:30 | DI.RAD.S_ITS ---
PROCEDURE: PAIN C/T FACET INJ/BLK 1ST L INDICATIONS: Cervical spondylosis COMPARISON: [facility], XA, PAIN C/T FACET INJ/BLK 1ST L, 01/26/2023, 9:45. [facility], XA, PAIN C/T FACET INJ/BLK 1ST L, 10/28/2021, 10:16. FINDINGS: Fluoroscopic spot filming was performed to verify placement of spinal needles at the left C3-C4 and C6-C7 level(s), as labeled on the films. Appropriate location(s) of the needle tip(s) was confirmed by injection of iodinated contrast. IMPRESSION: Left fluoroscopically guided cervical facet injection. Dictated by: Deidra Boogie M.D. on 06/23/2023 at 16:55 Approved by: Deidra Boogie M.D. on 06/23/2023 at 16:55
[2023-06-23] MEDS: iopamidoL 15 ML VIAL 3 ML INJ (15:34)
[2023-06-23] MEDS: BUPIVACAINE 0.5% (PF) 10 ML VIAL 5 ML INJ (15:34)
--- NOTE | 2023-06-23 16:49 | P.PCN_ITS ---
Date/Time/Diagnoses Date of procedure: 06/23/23 Time of procedure: 15:30 Procedure Notes Physician: Eulogio Bravo Total Fluoroscopy time (seconds): 28 Total sedation minutes: 21 Procedure in detail & Post-procedure care: Left 3rd occipital nerve, C3, 4 Cervical Medial Branch Blocks Indications: Lilia is presenting for treatment of cervical spondylosis with cervical pain. Preoperative diagnosis: Cervical spondylosis Postoperative diagnosis: Same Pre-procedure History: Patient demonstrates today moderate to severe non- radicular neck pain without neurologic deficit aggravated by hyperextension yes Neck pain greater than arm pain? yes Patient today has tenderness over the suspected joint(s) yes History of post-traumatic injury? no Hypertrophic arthropathy yes Neck pain associated with suspected motion segment instability, hypermobility or pseudoarthrosis no Focused Examination: Ax3 Mood and affect are normal Vital Signs: VSS ASA: 2 Consent: Following review of allergies and potential side effects/complications, including, but not necessarily limited to, infection, allergic reaction, local tissue breakdown, stroke, temporary or permanent nerve injury, paralysis, and possible , the patient indicated that they understood and agreed to proceed .? An informed consent document was signed by the patient, witnessed by a nurse and placed in the patient's chart.? Additionally, other treatment options including medications and physical therapy were reviewed with the patient. All questions were answered. Site was then marked. Anesthesia: After review of previous anesthetic history and IV conscious sedation, the patient was deemed safe to proceed with today's procedure with IV conscious sedation. IV sedation was accomplished with midazolam 1 mg administered by the RN after order by Dr. Bravo. Sedation was titrated to patient comfort during the course of the procedure. Patient remained responsive to all verbal commands. Position: Prone Monitoring: NIBP, Pulse oximetry, 3 lead EKG Needle used: 22G 3.5 inch spinal needle Contrast: Isovue 300M Injectate: 0.5% bupivacaine 0.5 mL per site Procedure: The patient was brought into the procedure room and positioned into the prone position. Skin was prepped with a Chloraprep solution, allowed to air dry, and then draped in sterile fashion.? The left 3rd occipital nerve, C3, 4 facet joints were visually identified with fluoroscopy. Lidocaine 1% was used to anesthetize the skin over each target destination with a 25ga needle. A 22 ga, 3.5 inch spinal needle was advanced to the location of the medial branch at the waist of the articular pillar using intermittent fluoroscopy in the AP view. Isovue 300M contrast 0.2ml was injected at each level outlining the borders for each level in the AP/lateral views and confirmed in the foraminal view. There was no evidence of vascular or intrathecal uptake. The above injectate was slowly injected at each target destination. At the end of the procedure the needles were withdrawn and Band-Aids were applied for a dressing. Post Procedure: Patient was taken to the recovery and monitored. The patient was provided a Pain Log to continue to record the patient's response to the target- specific procedure prior to the patient's follow-up visit with the referring physician. Patient was stable upon discharge. Detailed post procedure instructions were provided. Patient was asked to call in the event of worsening pain, fever, weakness, numbness or bladder or bowel incontinence. Based on the medial branches blocked today, if the patient meets insurance criteria for radiofrequency, the treatment should result in the denervation of the left 3rd occipital nerve, C3-4 facet joint nerves. We would expect to denervate a total of 2 facets during the radiofrequency ablation. Complications: None
== END 2023-06-23 16:03 | disposition home or self-care (01) ==
LOC: RAD 14:48
PROVIDERS: PCP Family Medicine; Referring Provider Anesthesiology; Visit Provider Anesthesiology
DX: M47.812 Spondylosis without myelopathy or radiculopathy, cervical region (principal)
CPT/HCPCS: 64490; 64491; 99152; J2250

== ENCOUNTER 2023-07-21 09:15 | Outpatient (CLI) | payer BC, OTHER, SELFPAY ==
[2023-07-21] VITALS (9 sets, daily range): BP systolic 121–136; BP diastolic 73–93; PULSE 73–79; RESP 16–22; TEMP 36.3; O2SAT 99–100
[2023-07-21] MEDS: MIDAZOLAM 2 MG/2 ML VIAL 1 MG IV (09:58)
--- NOTE | 2023-07-21 10:00 | DI.RAD.S_ITS ---
PROCEDURE: PAIN C/T FACET INJ/BLK 1ST L INDICATIONS: SPONDYLOSIS COMPARISON: Located Within [facility], , PAIN C/T FACET INJ/BLK 1ST L, 06/23/2023, 16:34. FINDINGS: Fluoroscopic spot filming was performed to verify placement of spinal needles at the left TON, C3, C4 level(s), as labeled on the films. Appropriate location(s) of the needle tip(s) was confirmed by injection of iodinated contrast. IMPRESSION: Intra procedural examination demonstrating appropriate positions of the needles. Dictated by: Erik Patel M.D. on 07/21/2023 at 10:53 Approved by: Eirk Patel M.D. on 07/21/2023 at 10:54
[2023-07-21] MEDS: iopamidoL 15 ML VIAL 3 ML INJ (10:02)
[2023-07-21] MEDS: LIDOCAINE 2% INJ MDV 20ML 5 ML INJ (10:02)
--- NOTE | 2023-07-21 11:33 | P.PCN_ITS ---
Date/Time/Diagnoses Date of procedure: 07/21/23 Time of procedure: 10:00 Procedure Notes Physician: Eulogio Bravo Total Fluoroscopy time (seconds): 17 Total sedation minutes: 13 Procedure in detail & Post-procedure care: Left TON, C3, 4 Cervical Medial Branch Blocks Indications: Lilia is presenting for treatment of cervical spondylosis with cervical pain. Preoperative diagnosis: Cervical spondylosis Postoperative diagnosis: Same Pre-procedure History: Patient demonstrates today moderate to severe non- radicular neck pain without neurologic deficit aggravated by hyperextension yes Neck pain greater than arm pain? F yes Patient today has tenderness over the suspected joint(s) yes History of post-traumatic injury? no Hypertrophic arthropathy F yes Neck pain associated with suspected motion segment instability, hypermobility or pseudoarthrosis no Pre-testing pain score (VAS): 7/10 Focused Examination: Ax3 Mood and affect are normal Vital Signs: VSS ASA: 2 Consent: Following review of allergies and potential side effects/complications, including, but not necessarily limited to, infection, allergic reaction, local tissue breakdown, stroke, temporary or permanent nerve injury, paralysis, and possible , the patient indicated that they understood and agreed to proceed.? An informed consent document was signed by the patient, witnessed by a nurse and placed in the patient's chart.? Additionally, other treatment options including medications and physical therapy were reviewed with the patient. All questions were answered. Site was then marked. Anesthesia: After review of previous anesthetic history and IV conscious sedation, the patient was deemed safe to proceed with today's procedure with IV conscious sedation. IV sedation was accomplished with midazolam 1 mg administered by the RN after order by Dr. Bravo. Sedation was titrated to patient comfort during the course of the procedure. Patient remained responsive to all verbal commands. Position: Prone Monitoring: NIBP, Pulse oximetry, 3 lead EKG Needle used: 22G 3.5 inch spinal needle Contrast: Isovue 300M Injectate: 2% lidocaine 0.5 mL per site Procedure: The patient was brought into the procedure room and positioned into the prone position. Skin was prepped with a Chloraprep solution, allowed to air dry, and then draped in sterile fashion.? The left 3rd occipital nerve, C3, 4 facet joints were visually identified with fluoroscopy. Lidocaine 1% was used to anesthetize the skin over each target destination with a 25ga needle. A 22 ga, 3.5 inch spinal needle was advanced to the location of the medial branch at the waist of the articular pillar using intermittent fluoroscopy in the AP view. Isovue 300M contrast 0.2ml was injected at each level outlining the borders for each level in the AP/lateral views and confirmed in the foraminal view. There was no evidence of vascular or intrathecal uptake. The above injectate was slowly injected at each target destination. At the end of the procedure the needles were withdrawn and Band-Aids were applied for a dressing. Post Procedure: Patient was taken to the recovery and monitored. The patient was provided a Pain Log to continue to record the patient's response to the target- specific procedure prior to the patient's follow-up visit with the referring physician. Patient was stable upon discharge. Detailed post procedure instructions were provided. Patient was asked to call in the event of worsening pain, fever, weakness, numbness or bladder or bowel incontinence. Based on the medial branches blocked today, if the patient meets insurance criteria for radiofrequency, the treatment should result in the denervation of the left 3rd occipital nerve, C3-4 facet joint nerves. We would expect to denervate a total of 2 facets during the radiofrequency ablation. Complications: None
== END 2023-07-21 10:35 | disposition home or self-care (01) ==
PROVIDERS: PCP Family Medicine; Referring Provider Anesthesiology; Visit Provider Anesthesiology
DX: M47.812 Spondylosis without myelopathy or radiculopathy, cervical region (principal)
CPT/HCPCS: 64490; 64491; 99152; J2250

== ENCOUNTER 2023-08-11 10:04 | Outpatient (CLI) | payer BC, OTHER, SELFPAY ==
[2023-08-11] VITALS (10 sets, daily range): BP systolic 99–128; BP diastolic 57–81; PULSE 66–71; RESP 12–18; TEMP 36.4; O2SAT 94–100
--- NOTE | 2023-08-11 10:30 | DI.RAD.S_ITS ---
PROCEDURE: PAIN C/T MEDIAL N RFA INDICATIONS: CERVICAL SPONDYLOSIS COMPARISON: [facility], XA, PAIN C/T FACET INJ/BLK 1ST L, 07/21/2023, 11:00. [facility], XA, PAIN C/T FACET INJ/BLK 1ST L, 06/23/2023, 16:34. FINDINGS: Intraoperative localization images were acquired. Localization needles overlies posterior aspects of C3 and C4. Anterior fusion is present from C4 through C6. IMPRESSION: Intraoperative localization. Dictated by: Mariposa Rodriguez M.D. on 08/11/2023 at 16:08 Approved by: Mariposa Rodriguez M.D. on 08/11/2023 at 16:09
[2023-08-11] MEDS: BUPIVACAINE 0.5% (PF) 10 ML VIAL 2 ML INJ (10:47)
[2023-08-11] MEDS: DEXAMETHASONE 10 MG/ML VIAL INJ (10:48)
[2023-08-11] MEDS: LIDOCAINE 2% INJ SDV 5ML 5 ML INJ (10:48)
[2023-08-11] MEDS: MIDAZOLAM 2 MG/2 ML VIAL 1 MG IV ×2 (10:49→10:50)
--- NOTE | 2023-08-11 12:10 | P.PCN_ITS ---
Date/Time/Diagnoses Date of procedure: 08/11/23 Time of procedure: 10:30 Procedure Notes Physician: Eulogio Bravo Total Fluoroscopy time (seconds): 47 Total sedation minutes: 34 Procedure in detail & Post-procedure care: Left 3rd occipital nerve, C3, 4 Cervical Medial Branch Radio Frequency Ablation Indications: Lilia is presenting for treatment of cervical spondylosis with cervical pain. Preoperative diagnosis: Cervical spondylosis Postoperative diagnosis: Same Pre-procedure History: Patient demonstrates today moderate to severe non- radicular neck pain without neurologic deficit aggravated by hyperextension yes Neck pain greater than arm pain? yes Patient today has tenderness over the suspected joint(s) yes History of post-traumatic injury? no Hypertrophic arthropathy yes Neck pain associated with suspected motion segment instability, hypermobility or pseudoarthrosis no Focused Examination: Ax3 Mood and affect are normal Vital Signs: VSS ASA: 2 Consent: Following review of allergies and potential side effects/complications, including, but not necessarily limited to, infection, allergic reaction, local tissue breakdown, stroke, temporary or permanent nerve injury, paralysis, and possible , the patient indicated that they understood and agreed to proceed.? An informed consent document was signed by the patient, witnessed by a nurse and placed in the patient's chart.? Additionally, other treatment options including medications and physical therapy were reviewed with the patient. All questions were answered. Site was then marked. Position: Prone Monitoring: NIBP, Pulse oximetry, 3 lead EKG Needle used: 20 guage, 100 mm, 10 mm active tip Anesthesia: Local with IV sedation. After review of previous anesthetic history and IV conscious sedation, the patient was deemed safe to proceed with today's procedure with IV conscious sedation. IV sedation was accomplished with midazolam 2 mg administered by the RN after order by Dr. Bravo. Sedation was titrated to patient comfort during the course of the procedure. Patient remained responsive to all verbal commands. Procedure: The patient was brought into the procedure room and positioned into the prone position. Skin was prepped with a Chloraprep solution, allowed to air dry, and then draped in sterile fashion.? The left 3rd occipital nerve, C3-4 facet joints were visually identified with fluoroscopy. Lidocaine 1% was used to anesthetize the skin over each target destination with a 25ga needle. The target point for the treatment was the articular pillars. The needle was directed to each of these sites using a posterior approach and under fluoroscopic guidance. AP, foraminal and lateral radiographs were taken to confirm proper needle placement. No paresthesias were noted. The stylet was removed and the radiofrequency probe was inserted through the cannula. Each level was i ndividually tested. The impedance was between 300 and 800 ohms at all levels.? Sensory stimulation up to 2V elicited neck and trapezius region discomfort and no arm or leg discomfort. Motor stimulation was then carried out at 2Hz and minimally up to 2V. There was no evidence of motor stimulation in the upper extremities. After negative aspiration, 1ml of 2% lidocaine was injected at each of the levels and radiofrequency denervation carried out using 80 degrees Celsius for 90 seconds. During the procedure there was no pain elicited in the extremities. After ablation, a mixture of 10 mg dexamethasone with 0.25% bupivacaine 2 mL was injected in equal amounts among the sites. At the end of the procedure the needles were withdrawn and Band-Aids were applied for a dressing. This procedure is expected to denervate the left 3rd occipital nerve and C3-4 facet joints. Post Procedure: Patient was taken to the recovery and monitored. The patient was provided a Pain Log to continue to record the patient's response to the target- specific procedure prior to the patient's follow-up visit with the referring physician. Patient was stable upon discharge. Detailed post procedure instructions were provided. Patient was asked to call in the event of worsening pain, fever, weakness, numbness or bladder or bowel incontinence. Complications: None
== END 2023-08-11 11:32 | disposition home or self-care (01) ==
LOC: RAD 10:04
PROVIDERS: PCP Family Medicine; Referring Provider Anesthesiology; Visit Provider Anesthesiology
DX: M47.812 Spondylosis without myelopathy or radiculopathy, cervical region (principal)
CPT/HCPCS: 64491; 64633; 99152; 99153; J1100; J2250

== ENCOUNTER 2023-12-02 15:01 | Emergency (ER) | payer BC, MEDICARE, SELFPAY ==
[2023-12-02] VITALS (13 sets, daily range): BP systolic 122–154; BP diastolic 71–99; PULSE 57–77; RESP 14–16; TEMP 36.6; O2SAT 93–99; BMI 20.7
--- NOTE | 2023-12-02 | DI.CT.S_ITS ---
PROCEDURE: CT HEAD/BRAIN WO CON INDICATIONS: POSSIBLE BLEED TECHNIQUE: Noncontrast 4.5 mm thick angled axial sections acquired from the foramen magnum to the vertex, with coronal and sagittal reformats. For radiation dose reduction, the following was used: automated exposure control, adjustment of mA and/or kV according to patient size. COMPARISON: [facility], CT, CT HEAD/BRAIN WO CON, 05/23/2019, 14:47. [facility], CT, CT ANGIO HEAD AND NECK, 12/02/2023, 15:41. FINDINGS: Image quality: Diagnostic. CSF spaces: Basal cisterns are patent. No extra-axial fluid collections. Ventricles are normal in size and shape. Brain: No midline shift. No intracranial masses or hemorrhage. Chan-white matter interface is normal. Skull and face: Calvarium and visualized facial bones are intact, without suspicious lesions. Sinuses: Visualized sinuses and mastoids are clear. IMPRESSION: No acute intracranial pathology. Dictated by: Mariposa Rodriguez M.D. on 12/02/2023 at 16:26 Approved by: Mariposa Rodriguez M.D. on 12/02/2023 at 16:26
--- NOTE | 2023-12-02 15:03 | DI.CT.S_ITS ---
PROCEDURE: CT ANGIO HEAD AND NECK INDICATIONS: stroke sx Wednesday TECHNIQUE: After the administration of intravenous contrast, 1 mm thick sections acquired from the aortic arch through the [place] of [place]. 3-dimensional resvbgm-wovtkkvnl-pratqofdag (MIP) and/or volume rendering reformats were acquired of the central intracranial vasculature and neck separately. For radiation dose reduction, the following was used: automated exposure control, adjustment of mA and/or kV according to patient size. COMPARISON: [facility], CT, CT HEAD/BRAIN WO CON, 12/02/2023, 15:47. FINDINGS: Image quality: Diagnostic. BRAIN: See separately dictated CT head report of 12/02/2023. HEAD CT ANGIOGRAPHY: Anterior circulation: Intracranial internal carotid arteries are normal in size and flow. The flow within the paired anterior cerebral arteries is normal and symmetric. The flow within the middle cerebral arteries is normal and symmetric. The anterior communicating artery is seen. No aneurysms are seen. Posterior circulation: Left vertebral artery dominance. Visualized portions of the vertebral arteries demonstrate normal caliber, and join to form a normal appearing basilar artery. Flow within the posterior cerebral arteries is normal and symmetric. No aneurysms are seen. NECK CT ANGIOGRAPHY: Carotid system: The great vessels demonstrate a conventional anatomy as they arise from the aortic arch. The origins of the common carotid arteries appear patent. The common carotid arteries demonstrate normal caliber and courses. The bifurcation regions are both widely patent. The internal carotid arteries demonstrate normal calibers and courses. Posterior circulation: The origins of the vertebral arteries both appear widely patent. The more superior extracranial portions of both vertebral arteries also demonstrate normal courses and calibers. They join to form a normal appearing basilar artery. Soft tissues: Visualized neck soft tissues demonstrate no suspicious abnormalities. Anterior fusion from C4 through C6. IMPRESSION: No significant intracranial arterial abnormality is seen. No significant abnormality is seen within the arteries of the neck. Any quantitative measurements of stenosis were performed using NASCET criteria. Dictated by: Mariposa Rodriguez M.D. on 12/02/2023 at 16:27 Approved by: Mariposa Rodriguez M.D. on 12/02/2023 at 16:28
[2023-12-02 15:29] LABS: Add Manual Diff / Slide Review NO; Basophils Absolute Auto 100 /uL (0-100); Eosinophils Absolute Auto 400 /uL (0-450); Eosinophils Percent Auto 4.4 % (2-4); Hematocrit 35.9 % (36-46); Lymphocytes Absolute Auto 1900 /uL (1100-4500); Lymphocytes Percent Auto 21.8 % (25-40); Mean Corpuscular HGB Conc 33.3 % (30-36); Mean Corpuscular Hemoglobin 28.7 PG (26-34); Mean Corpuscular Volume 86.2 fL (80-100); Monocytes Absolute Auto 700 /uL (0-900); Monocytes Percent Auto 7.3 % (3-14); Neutrophils Absolute Auto 5900 /uL (1500-7000); Neutrophils Percent Auto 65.5 % (50-75); Platelet Count 289 X10^3/uL (150-400); Red Blood Cell Count 4.17 X10^6/uL (4.0-5.2); Red Cell Distribution Width 13.3 % (11.6-14.8); White Blood Cell Count 8.9 X10^3/uL (4.5-11.0)
[2023-12-02 15:36] LABS: Prothrombin Time 11.6 SECONDS (9.4-12.5)
[2023-12-02 15:38] LABS: PTT Partial Thromboplastin Tim 36 SECONDS (25.1-36.5)
[2023-12-02 15:46] LABS: Alanine Aminotransferase 28 IU/L (<35); Albumin 4.5 g/dL (3.5-5.0); Albumin Globulin Ratio 1.9 (1.0-2.8); Alkaline Phosphatase 52 U/L (38-126); Aspartate Aminotransferase 37 IU/L (14-36); BUN Creatinine Ratio 26.8 (6-22); Bilirubin Total 0.4 mg/dL (0.2-1.3); Blood Urea Nitrogen 22 mg/dL (7-17); Calcium 9.3 mg/dL (8.4-10.2); Carbon Dioxide 30 mmol/L (22-32); Chloride 106 mmol/L (98-107); Estimated Glomerular Filt Rate > 60 mL/min (>60); Globulin 2.4 g/dL (1.7-4.1); Glucose 96 mg/dL (80-110); HEMOLYSIS < 15 (0-50); Potassium 3.7 mmol/L (3.4-5.1); Sodium 140 mmol/L (137-145); Total Protein 6.9 g/dL (6.3-8.2)
--- NOTE | 2023-12-02 18:08 | ED.NEUROSD ---
HPI - Neuro Symptoms/Deficit General Chief Complaint: Neuro Symptoms/Deficit Stated Complaint: sent by MD for CT Time Seen by Provider: 12/02/23 17:55 Source: patient Mode of arrival: Ambulatory History of Present Illness HPI Narrative: 62-year-old female with history of chronic cervical neck pain presents from her pain management doctor's office for CT imaging. Patient sees Dr. Bravo for her chronic cervical pain. Patient states that 4 days ago she experienced a severe right-sided neck pain. Subsequently she developed a right-sided headache, felt lightheaded and dizzy, and stated that the left side of her face drooped. She states that she developed full body weakness and was not able to walk for a short amount of time. Patient recovered at home after being taken to bed by her and an ice pack applied. Patient has had no further episodes of headache, facial droop, or weakness since her event 4 days ago. She told her pain management doctor about this incident and he referred her to the ER for CT to rule out stroke or aneurysm. On Anticoagulants: No Related Data Home Medications Medication Instructions Recorded Confirmed mupirocin 2 % topical ointment 1 applic topical DAILY 06/15/22 12/02/23 zafirlukast 20 mg tablet 20 mg PO BID 09/20/23 12/02/23 Previous Rx's Medication Instructions Recorded diclofenac sodium 1 % topical gel 2 g topical QID #100 grams 07/28/21 (Arthritis Pain (diclofenac)) albuterol sulfate 90 mcg/actuation 2 puff inhalation Q4-6H PRN 09/22/22 aerosol inhaler (ProAir HFA) shortness of breath #6.7 grams carvedilol 6.25 mg tablet See Rx Instructions .Route 09/22/22 .COMPLEX #180 tabs lidocaine 5 % topical patch 1 patch topical DAILY #30 ea 11/11/22 cyanocobalamin (vitamin B-12) 1,000 mcg IM QWEEK #10 mL 12/14/22 1,000 mcg/mL injection solution carisoprodol 350 mg tablet 350 mg PO BID PRN muscle pain #60 01/19/23 tabs levothyroxine 50 mcg tablet See Rx Instructions .Route 01/29/23 (Euthyrox) .COMPLEX #90 tabs Disabled Parking Permint #1 ea 04/09/23 fenofibrate 120 mg tablet 120 mg PO DAILY #90 tabs 05/11/23 amitriptyline 100 mg tablet 200 mg (2 x 100 mg) PO BEDTIME 06/22/23 #180 tabs rosuvastatin 40 mg tablet 40 mg PO ONCE PM for 10/04/23 hyperlipidemia #90 ea hydrochlorothiazide 25 mg tablet See Rx Instructions .Route 10/07/23 .COMPLEX #90 tabs vortioxetine 20 mg tablet 20 mg PO DAILY #30 tabs 10/21/23 pregabalin 75 mg capsule (Lyrica) 75 mg PO BID #60 caps 10/29/23 oxycodone 10 mg tablet See Rx Instructions PO Q6H PRN 11/02/23 pain #180 tabs candesartan 8 mg tablet 8 mg PO DAILY #90 tabs 11/05/23 mirtazapine 15 mg tablet 15 mg PO BEDTIME #90 tabs 11/17/23 ondansetron 4 mg disintegrating 4 mg PO Q8H PRN nausea and 11/18/23 tablet vomiting #90 tabs Allergies Allergy/AdvReac Type Severity Reaction Status Date / Time No Known Drug Allergies Allergy Verified 12/02/23 14:15 Review of Systems Review of Systems Narrative: See HPI Hematologic/Lymphatic On Anticoagulants: No Patient History Medical History Dizziness Bilateral occipital neuralgia Cervical radiculopathy Myofascial pain Persistent headaches Cervicalgia Cervical spondylosis Staphylococcus infection of nose Secondary insomnia Chronic infection of sinus Degenerative joint disease of right hip COVID-19 virus infection (11/10/21) Chronic sinusitis Postmenopausal symptoms Postoperative pain Seasonal allergic rhinitis Chronic right hip pain Productive cough TMJ articul disc disordr Chronic, continuous use of opioids Hypothyroidism (acquired) Familial hypertriglyceridemia TMJ (dislocation of temporomandibular joint) Cervical radiculopathy at C7 Facet arthropathy, cervical Foraminal stenosis of cervical region Fatigue Post-traumatic stress disorder, chronic Generalized anxiety disorder with panic attacks Depression Depression (Unknown) Hyperlipemia (Unknown) Surgical History S/P total hip arthroplasty H/O wrist surgery Hx of shoulder surgery History of total abdominal hysterectomy and bilateral salpingo-oophorectomy (~1992) Hx of neck surgery (Unknown) Family History Mother Hypertension Alcohol abuse Father No problems noted. Social History household members: spouse Smoking Status: Never smoker alcohol intake: current substance use type: does not use Smoking Status: Never smoker alcohol intake frequency: holidays/special occasions only Substance Use Type: does not use Exam Initial Vital Signs Initial Vital Signs: Vital Signs Temperature 98 F 12/02/23 15:07 Pulse Rate 57 L 12/02/23 15:07 Respiratory Rate 16 12/02/23 15:07 Blood Pressure 146/80 H 12/02/23 15:07 Pulse Oximetry 99 12/02/23 15:07 Oxygen Delivery Method Room Air 12/02/23 15:07 Const: Awake, alert, no acute distress, nontoxic appearing Cardiac: regular rate, regular rhythm RESP: unlabored, clear bilaterally, no wheezing GI: Soft, nontender, nondistended, no rebound, no guarding MSK: Atraumatic, full range of motion, pulses equal Skin: Warm, Dry, intact, no rashes Neuro: AO x3, CN II-XII grossly intact, moves all extremities Course Orders Ordered: ED Orders 12/02/23 15:03 CT angio head and neck Stat 12/02/23 15:18 Complete Blood Count AUTO DIFF Stat Comprehensive Metabolic Panel Stat PT [Prothrombin Time INR] Stat PTT Partial Thromboplastin [place] Stat Vital Signs Vital signs: Vital Signs - 8 hr 12/02/23 19:57 Pulse Rate 68 Respiratory Rate 14 Blood Pressure 133/84 Pulse Oximetry 97 Oxygen Delivery Method Room Air MDM - Neuro Symptoms/Deficit Differential Diagnosis Differential diagnosis: Likely subarachnoid hemorrhage, cerebrovascular accident and multiple sclerosis Lab Data 12/02/23 15:18 12/02/23 15:18 Labs: Lab Results 12/02/23 Range/Units 15:18 WBC 8.9 (4.5-11.0) X10^3/uL RBC 4.17 (4.0-5.2) X10^6/uL Hgb 12.0 (12.0-16.0) g/dL Hct 35.9 L (36-46) % MCV 86.2 (80-100) fL MCH 28.7 (26-34) PG MCHC 33.3 (30-36) % RDW 13.3 (11.6-14.8) % Plt Count 289 (150-400) X10^3/uL Neut % (Auto) 65.5 (50-75) % Lymph % (Auto) 21.8 L (25-40) % [place] % (Auto) 7.3 (3-14) % Eos % (Auto) 4.4 H (2-4) % Baso % (Auto) 1.0 (0-2) % Neut # (Auto) 5900 (6818-5764) /uL Lymph # (Auto) 1900 (2685-4395) /uL [place] # (Auto) 700 (0-900) /uL Eos # (Auto) 400 (0-450) /uL Baso # (Auto) 100 (0-100) /uL PT 11.6 (9.4-12.5) SECONDS INR 1.0 (0.9-1.3) APTT 36 (25.1-36.5) SECONDS Sodium 140 (137-145) mmol/L Potassium 3.7 (3.4-5.1) mmol/L Chloride 106 (98-107) mmol/L Carbon Dioxide 30 (22-32) mmol/L BUN 22 H (7-17) mg/dL Creatinine 0.82 (0.52-1.04) mg/dL Estimated GFR > 60 (>60) mL/min BUN/Creatinine Ratio 26.8 H (6-22) Glucose 96 (80-110) mg/dL Calcium 9.3 (8.4-10.2) mg/dL Total Bilirubin 0.4 (0.2-1.3) mg/dL AST 37 H (14-36) IU/L ALT 28 (<35) IU/L Alkaline Phosphatase 52 (38-126) U/L Total Protein 6.9 (6.3-8.2) g/dL Albumin 4.5 (3.5-5.0) g/dL Globulin 2.4 (1.7-4.1) g/dL Albumin/Globulin Ratio 1.9 (1.0-2.8) Urine Dip Bedside Urine Glucose Negative Bedside Urine Bilirubin - Negative Bedside Urine Ketone - Negative Urine Specific [place] 1.015 Bedside Urine Occult Blood - Negative Bedside Urine pH 7.5 Bedside Urine Protein - Negative Bedside Urine Urobilinogen - Negative Bedside Urine Nitrite - Negative Bedside Urine Leukocytes - Negative Esterase Imaging Data CT scan - head: Radiologist's Impression: PROCEDURE: CT HEAD/BRAIN WO CON INDICATIONS: POSSIBLE BLEED TECHNIQUE: Noncontrast 4.5 mm thick angled axial sections acquired from the foramen magnum to the vertex, with coronal and sagittal reformats. For radiation dose reduction, the following was used: automated exposure control, adjustment of mA and/or kV according to patient size. COMPARISON: [facility], CT, CT HEAD/BRAIN WO CON, 05/23/2019, 14:47. [facility], CT, CT ANGIO HEAD AND NECK, 12/02/2023, 15:41. FINDINGS: Image quality: Diagnostic. CSF spaces: Basal cisterns are patent. No extra-axial fluid collections. Ventricles are normal in size and shape. Brain: No midline shift. No intracranial masses or hemorrhage. Chan-white matter interface is normal. Skull and face: Calvarium and visualized facial bones are intact, without suspicious lesions. Sinuses: Visualized sinuses and mastoids are clear. IMPRESSION: No acute intracranial pathology. Dictated by: Mariposa Rodriguez M.D. on 12/02/2023 at 16:26 Approved by: Mariposa Rodriguez M.D. on 12/02/2023 at 16:26 CTA - brain/neck: Radiologist's Impression: PROCEDURE: CT ANGIO HEAD AND NECK INDICATIONS: stroke sx Wednesday TECHNIQUE: After the administration of intravenous contrast, 1 mm thick sections acquired from the aortic arch through the [place] of [place]. 3-dimensional epjqkqc-ufgzzhdmh-qoympfgdzl (MIP) and/or volume rendering reformats were acquired of the central intracranial vasculature and neck separately. For radiation dose reduction, the following was used: automated exposure control, adjustment of mA and/or kV according to patient size. COMPARISON: [facility], CT, CT HEAD/BRAIN WO CON, 12/02/2023, 15:47. FINDINGS: Image quality: Diagnostic. BRAIN: See separately dictated CT head report of 12/02/2023. HEAD CT ANGIOGRAPHY: Anterior circulation: Intracranial internal carotid arteries are normal in size and flow. The flow within the paired anterior cerebral arteries is normal and symmetric. The flow within the middle cerebral arteries is normal and symmetric. The anterior communicating artery is seen. No aneurysms are seen. Posterior circulation: Left vertebral artery dominance. Visualized portions of the vertebral arteries demonstrate normal caliber, and join to form a normal appearing basilar artery. Flow within the posterior cerebral arteries is normal and symmetric. No aneurysms are seen. NECK CT ANGIOGRAPHY: Carotid system: The great vessels demonstrate a conventional anatomy as they arise from the aortic arch. The origins of the common carotid arteries appear patent. The common carotid arteries demonstrate normal caliber and courses. The bifurcation regions are both widely patent. The internal carotid arteries demonstrate normal calibers and courses. Posterior circulation: The origins of the vertebral arteries both appear widely patent. The more superior extracranial portions of both vertebral arteries also demonstrate normal courses and calibers. They join to form a normal appearing basilar artery. Soft tissues: Visualized neck soft tissues demonstrate no suspicious abnormalities. Anterior fusion from C4 through C6. IMPRESSION: No significant intracranial arterial abnormality is seen. No significant abnormality is seen within the arteries of the neck. Any quantitative measurements of stenosis were performed using NASCET criteria. Dictated by: Mariposa Rodriguez M.D. on 12/02/2023 at 16:27 Approved by: Mariposa Rodriguez M.D. on 12/02/2023 at 16:28 [facility] Narrative Medical decision making narrative: Well-appearing patient with episode of severe headache with facial droop 4 days ago. She has been asymptomatic since the initial event and currently denies any symptoms or complaints. NIH 0. CT brain negative for acute findings. CT angio negative for aneurysm or significant stenosis. Based on patient's description of her events 4 days ago I do question if her symptoms were secondary to severe pain in her neck, however this is not certain as I was not present at the time to evaluate the patient while she was immediately experiencing symptoms. Patient informed of imaging findings, she was relieved to know that the images are negative for stroke or blockage. 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 Discharge Plan Departure Patient Disposition: Home Clinical Impression: Posterior neck pain Instructions: DI for Cervical Radiculopathy Activity Restrictions/Additional Instructions: Your CTs today did not show any sign of stroke, aneurysm, or blockage. I do not know the exact cause of your symptoms on Wednesday, however your workup here is reassuring. Please continue to follow up with your specialists as scheduled. Prescriptions: No Action diclofenac sodium [Arthritis Pain (diclofenac)] 1 % gel 2 g topical QID Qty: 100 1RF Rx Instructions: apply to single elbow, wrist or hand; for hand includes palm/fingers/back of hand albuterol sulfate [ProAir HFA] 90 mcg/actuation HFA aerosol inhaler 2 puff INHALATION Q4-6H PRN (Reason: shortness of breath) Qty: 6.7 5RF carvedilol 6.25 mg tablet See Rx Instructions .ROUTE .COMPLEX Qty: 180 3RF Dose Instruction: Take 1 tablet by mouth twice daily Rx Instructions: Take 1 tablet by mouth twice daily lidocaine 5 % adhesive patch,medicated 1 patch TOP DAILY Qty: 30 3RF Rx Instructions: leave on most painful area for 12 hrs cyanocobalamin (vitamin B-12) 1,000 mcg/mL solution 1,000 mcg IM QWEEK Qty: 10 12RF levothyroxine [Euthyrox] 50 mcg tablet See Rx Instructions .ROUTE .COMPLEX Qty: 90 3RF Dose Instruction: Take 1 tablet by mouth once daily Rx Instructions: Take 1 tablet by mouth once daily fenofibrate 120 mg tablet 120 mg PO DAILY Qty: 90 3RF amitriptyline 100 mg tablet 200 mg PO BEDTIME Qty: 180 1RF rosuvastatin 40 mg tablet 40 mg PO ONCE PM Qty: 90 0RF hydrochlorothiazide 25 mg tablet See Rx Instructions .ROUTE .COMPLEX Qty: 90 1RF Dose Instruction: Take 1 tablet by mouth once daily Rx Instructions: Take 1 tablet by mouth once daily vortioxetine 20 mg tablet 20 mg PO DAILY Qty: 30 3RF oxycodone 10 mg tablet See Rx Instructions PO Q6H PRN (Reason: pain) Qty: 180 0RF Hold Instructions: separate 1 week bridge waiting for PCP Rx Instructions: 1-2 tabs orally every 6 hours PRN; EXEMPT candesartan 8 mg tablet 8 mg PO DAILY Qty: 90 0RF mirtazapine 15 mg tablet 15 mg PO BEDTIME Qty: 90 1RF ondansetron 4 mg tablet,disintegrating 4 mg PO Q8H PRN (Reason: nausea and vomiting) Qty: 90 0RF carisoprodol 350 mg tablet 350 mg PO BID PRN (Reason: muscle pain) Qty: 60 5RF (DME) Disabled Parking Permint See Rx Instructions .ROUTE .MEDSUPPLY Qty: 1 0RF Rx Instructions: I find this patient to be medically disabled and qualified for Disabled Parking as indicated and signed on the Accompanying Disabled Parking Application for individuals. mupirocin 2 % ointment 1 applic topical DAILY zafirlukast 20 mg tablet 20 mg PO BID pregabalin [Lyrica] 75 mg capsule 75 mg PO BID Qty: 60 1RF Referrals: Rafa Warren DO [Primary Care Provider] - Stand Alone Forms: Patient Portal/API
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
== END 2023-12-02 20:00 | disposition home or self-care (01) ==
PROVIDERS: Emergency Medicine; Emergency Provider Emergency Medicine; PCP Family Medicine; Referring Provider Anesthesiology
DX: M54.2 Cervicalgia (principal); R29.810 Facial weakness; Z79.899 Other long term (current) drug therapy; R29.700 NIHSS score 0
CPT/HCPCS: 36415; 70450; 70496; 70498; 80053; 81003; 85025; 85610; 85730; 99283; 99284; Q9967

== ENCOUNTER → 2024-04-25 15:00 | Outpatient (CLI) | payer BC, MEDICARE, SELFPAY ==
[2024-04-25 16:30] LABS: Add Manual Diff / Slide Review NO; Basophils Absolute Auto 0 /uL (0-100); Basophils Percent Auto 0.7 % (0-2); Eosinophils Absolute Auto 300 /uL (0-450); Eosinophils Percent Auto 3.5 % (2-4); Hematocrit 37.9 % (36-46); Hemoglobin 12.7 g/dL (12.0-16.0); Lymphocytes Absolute Auto 2400 /uL (1100-4500); Mean Corpuscular HGB Conc 33.5 % (30-36); Mean Corpuscular Hemoglobin 28.8 PG (26-34); Mean Corpuscular Volume 85.8 fL (80-100); Monocytes Absolute Auto 500 /uL (0-900); Monocytes Percent Auto 6.6 % (3-14); Neutrophils Absolute Auto 4100 /uL (1500-7000); Neutrophils Percent Auto 56.2 % (50-75); Platelet Count 296 X10^3/uL (150-400); Red Blood Cell Count 4.42 X10^6/uL (4.0-5.2); Red Cell Distribution Width 13.8 % (11.6-14.8); White Blood Cell Count 7.3 X10^3/uL (4.5-11.0)
[2024-04-25 16:54] LABS: Alanine Aminotransferase 20 IU/L (<35); Albumin 4.3 g/dL (3.5-5.0); Albumin Globulin Ratio 1.7 (1.0-2.8); Alkaline Phosphatase 59 U/L (38-126); Aspartate Aminotransferase 29 IU/L (14-36); BUN Creatinine Ratio 24.4 (6-22); Bilirubin Total 0.4 mg/dL (0.2-1.3); Blood Urea Nitrogen 22 mg/dL (7-17); Calcium 9.6 mg/dL (8.4-10.2); Carbon Dioxide 25 mmol/L (22-32); Chloride 101 mmol/L (98-107); Cholesterol 145 mg/dL (140-199); Estimated Glomerular Filt Rate > 60 mL/min (>60); Globulin 2.6 g/dL (1.7-4.1); Glucose 80 mg/dL (80-110); HDL Cholesterol 67 mg/dL (40-60); HEMOLYSIS < 15 (0-50); LDL Cholesterol Calculated 54 mg/dL (<100); Potassium 3.5 mmol/L (3.4-5.1); Sodium 132 mmol/L (137-145); Total Protein 6.9 g/dL (6.3-8.2); Triglycerides 120 mg/dL (35-150)
[2024-04-25 17:11] LABS: Vitamin D 25 Hydroxy (D3) 52.2 ng/mL (30.0-100.0)
[2024-04-25 17:19] LABS: TSH w/ Reflex to FT4 < 0.02 uIU/mL (0.47-4.68)
[2024-04-25 17:49] LABS: Free T4, Direct Thyroxine 1.02 ng/dL (0.78-2.19)
== END ==
PROVIDERS: PCP Family Medicine; Referring Provider Family Medicine; Visit Provider Family Medicine
DX: E03.9 Hypothyroidism, unspecified (principal); E78.1 Pure hyperglyceridemia; E78.2 Mixed hyperlipidemia; E55.9 Vitamin D deficiency, unspecified; I10 Essential (primary) hypertension; R74.8 Abnormal levels of other serum enzymes
CPT/HCPCS: 36415; 80053; 80061; 82306; 84439; 84443; 85025

== ENCOUNTER 2024-08-29 08:57 | Outpatient (CLI) | payer BC, MEDICARE, SELFPAY ==
[2024-08-29] VITALS (8 sets, daily range): BP systolic 104–146; BP diastolic 60–87; PULSE 68–74; RESP 14–19; TEMP 36.5; O2SAT 96–100
--- NOTE | 2024-08-29 08:58 | DI.RAD.S_ITS ---
PROCEDURE: PAIN C/T INTERLAMINAR INJECT INDICATIONS: C6/7 TL JOSE LUIS COMPARISON: [facility], , PAIN C/T INTERLAMINAR INJECT, 03/26/2022, 10:10. FINDINGS/IMPRESSION: Fluoroscopic spot filming was performed to verify placement of spinal needles at the C6-7 level(s), as labeled on the films. Appropriate location(s) of the needle tip(s) was confirmed by injection of iodinated contrast. Dictated by: Taqueria Mckeon M.D. on 08/29/2024 at 17:13 Approved by: Taqueria Mckeon M.D. on 08/29/2024 at 17:13
[2024-08-29] MEDS: MIDAZOLAM 2 MG/2 ML VIAL IV (10:00)
[2024-08-29] MEDS: DEXAMETHASONE 10 MG/ML VIAL 20 MG INJ (10:06)
[2024-08-29] MEDS: iopamidoL 15 ML VIAL 3 ML INJ (10:06)
[2024-08-29] MEDS: BUPIVACAINE 0.25% (PF) VIAL 2 ML INJ (10:06)
--- NOTE | 2024-08-29 10:21 | P.PCN_ITS ---
Date/Time/Diagnoses Date of procedure: 08/29/24 Time of procedure: 10:21 Pre-procedure diagnosis: 1. CERVICAL STENOSIS, 2. CERVICAL HNP WITH UPPER EXTREMITY RADICULAR FEATURES Post-procedure diagnosis: same Procedure Notes Procedure: 1. FLUORSCOPICALLY GUIDED CONTRAST CONTROLLED INTERLAMINAR EPIDURAL STEROID INJECTION - C6/7 TL JOSE LUIS Indications: Reny is referred by Dr. Warren for treatment of Cervical HNP with Upper Extremity Paresthesias. Physician: Soy Tello Total Fluoroscopy time (seconds): 26 Total sedation minutes: 17 Complications: none Procedure in detail & Post-procedure care: FINDINGS Cervical Stenosis due to disc deterioration and nerve root irritation and nerve root irritation DESCRIPTION OF PROCEDURE Fluoroscopically guided, contrast-controlled C6/7 translaminar epidural steroid injection with conscious sedation. Following review of allergy and review of potential side effects and complications, including, but not necessarily limited to, infection, allergic reaction, local tissue breakdown, temporary as well as permanent nerve injury, stroke, paralysis, and possible , the patient indicated that patient understood and agreed to proceed. An informed consent document was signed by the patient, witnessed by a nurse, and placed in the patient's chart. Additionally, other treatment options including modalities, medications, and physical therapy were reviewed with the patient. After review of previous anaesthesic history and IV conscious sedation the patient was deemed safe to proceed with today?s procedure with IV conscious sedation as ASA class II designation. Safety time-out was performed to confirm patient ID, procedure to be performed and site of procedure. IV sedation was accomplished with a combination of 2mg of Versed and 50mcg of Fentanyl administered by the RN after DO order, titrated to patient comfort during the course of the procedure while the patient remained responsive to all verbal commands. In the prone position, following sterile prep and drape of the cervical region, the C6/7 translaminar space was identified fluoroscopically. The skin was anesthetized via a 25-gauge 1.5-inch needle with 1% lidocaine solution. At this point, a 25-gauge, 2.5-inch short bevel spinal needle was atraumatically introduced and advanced under fluoroscopic guidance into epidural space at the C6/7 translaminar space. Depth was confirmed on lateral view. Radiological data, including multiple fluoroscopic views of the cervical spine, reveal a spinal needle at the C6/7 translaminar space. Lateral views then show placement of the needle in the epidural space. Subsequent views show contrast material flowing superiorly and inferiorly in the epidural space. DSA fluoroscopy with live contrast injection, once again, confirmed no vascular or intrathecal uptake. At this point, using loss of resistance technique with saline and air, the epidural space was entered. Following negative aspiration, injection of mira roximately 1.5 cc of Isovue-200 with live fluoroscopy in the AP view confirmed epidural flow in the epidural space without vascular or intrathecal uptake observed. Subsequently, a test dose of 1 cc of 1% lidocaine solution was injected and patient was observed for two minutes without signs or symptoms of complications, including abdominal pain, shortness of breath, bilateral upper or lower extremity weakness, nausea and vomiting, prior to steroid injection. At this point, 2cc or 20mg of dexamethasone was then injected without incident. The patient tolerated the procedure well without signs or symptoms of complications prior to being transferred to the recovery area for further monitoring, The patient was then transferred to the recovery area where they were observed for an appropriate period of time after the injection. The patient reported a VAS score of 6 prior to the procedure and a post-procedure VAS of 0. POST OP INSTRUCTIONS The patient was provided a Pain Log to continue to record their response to the target-specific procedure prior to follow-up visit with the referring provider. Additionally, specific post-injection care instructions and a contact number to our office were provided if concerns arise regarding possible complications associated with the procedure are suspected.
== END 2024-08-29 10:32 | disposition home or self-care (01) ==
PROVIDERS: PCP Family Medicine; Referring Provider Physical Medicine & Rehabilitation; Visit Provider Physical Medicine & Rehabilitation
DX: M48.02 Spinal stenosis, cervical region (principal); M50.123 Cervical disc disorder at C6-C7 level with radiculopathy
CPT/HCPCS: 62321; 99152; J1100; J2250; J3490

== ENCOUNTER 2025-03-27 08:32 | Outpatient (CLI) | payer BC, MEDICARE, SELFPAY ==
[2025-03-27] VITALS (10 sets, daily range): BP systolic 100–136; BP diastolic 56–82; PULSE 67–76; RESP 11–21; TEMP 36.1; O2SAT 97–99
[2025-03-27] MEDS: MIDAZOLAM 2 MG/2 ML VIAL IV (09:15)
[2025-03-27] MEDS: fentaNYL 100 MCG/2 ML INJ 50 MCG IV (09:22)
--- NOTE | 2025-03-27 09:32 | P.PCN_ITS ---
Date/Time/Diagnoses Date of procedure: 03/27/25 Time of procedure: 09:32 Pre-procedure diagnosis: 1. CERVICAL STENOSIS, 2. CERVICAL HNP WITH UPPER EXTREMITY RADICULAR FEATURES Post-procedure diagnosis: same Procedure Notes Procedure: 1. FLUORSCOPICALLY GUIDED CONTRAST CONTROLLED INTERLAMINAR EPIDURAL STEROID INJECTION - C6/7 TL JOSE LUIS Indications: Reny is referred by Dr. Warren for treatment of Cervical HNP with Upper Extremity Paresthesias. Physician: Soy Tello Total Fluoroscopy time (seconds): 22 Total sedation minutes: 15 Complications: none Procedure in detail & Post-procedure care: FINDINGS Cervical Stenosis due to disc deterioration and nerve root irritation and nerve root irritation DESCRIPTION OF PROCEDURE Fluoroscopically guided, contrast-controlled C6/7 translaminar epidural steroid injection with conscious sedation. Following review of allergy and review of potential side effects and complications, including, but not necessarily limited to, infection, allergic reaction, local tissue breakdown, temporary as well as permanent nerve injury, stroke, paralysis, and possible , the patient indicated that patient understood and agreed to proceed. An informed consent document was signed by the patient, witnessed by a nurse, and placed in the patient's chart. Additionally, other treatment options including modalities, medications, and physical therapy were reviewed with the patient. After review of previous anaesthesic history and IV conscious sedation the patient was deemed safe to proceed with today?s procedure with IV conscious sedation as ASA class II designation. Safety time-out was performed to confirm patient ID, procedure to be performed and site of procedure. IV sedation was accomplished with a combination of 2mg of Versed and 50mcg of Fentanyl administered by the RN after DO order, titrated to patient comfort during the course of the procedure while the patient remained responsive to all verbal commands. In the prone position, following sterile prep and drape of the cervical region, the C6/7 translaminar space was identified fluoroscopically. The skin was anesthetized via a 25-gauge 1.5-inch needle with 1% lidocaine solution. At this point, a 25-gauge, 2.5-inch short bevel spinal needle was atraumatically introduced and advanced under fluoroscopic guidance into epidural space at the C6/7 translaminar space. Depth was confirmed on lateral view. Radiological data, including multiple fluoroscopic views of the cervical spine, reveal a spinal needle at the C6/7 translaminar space. Lateral views then show placement of the needle in the epidural space. Subsequent views show contrast material flowing superiorly and inferiorly in the epidural space. DSA fluoroscopy with live contrast injection, once again, confirmed no vascular or intrathecal uptake. At this point, using loss of resistance technique with saline and air, the epidural space was entered. Following negative aspiration, injection of mira roximately 1.5 cc of Isovue-200 with live fluoroscopy in the AP view confirmed epidural flow in the epidural space without vascular or intrathecal uptake observed. Subsequently, a test dose of 1 cc of 1% lidocaine solution was injected and patient was observed for two minutes without signs or symptoms of complications, including abdominal pain, shortness of breath, bilateral upper or lower extremity weakness, nausea and vomiting, prior to steroid injection. At this point, 2cc or 20mg of dexamethasone was then injected without incident. The patient tolerated the procedure well without signs or symptoms of complications prior to being transferred to the recovery area for further monitoring, The patient was then transferred to the recovery area where they were observed for an appropriate period of time after the injection. The patient reported a VAS score of 9 prior to the procedure and a post-procedure VAS of 1. POST OP INSTRUCTIONS The patient was provided a Pain Log to continue to record their response to the target-specific procedure prior to follow-up visit with the referring provider. Additionally, specific post-injection care instructions and a contact number to our office were provided if concerns arise regarding possible complications associated with the procedure are suspected.
== END 2025-03-27 09:54 | disposition home or self-care (01) ==
PROVIDERS: PCP Family Medicine; Referring Provider Physical Medicine & Rehabilitation; Visit Provider Physical Medicine & Rehabilitation
DX: M48.02 Spinal stenosis, cervical region (principal); M50.123 Cervical disc disorder at C6-C7 level with radiculopathy
CPT/HCPCS: 62321; 99152; J1100; J2250; J3010

== ENCOUNTER → 2025-03-29 12:59 | Outpatient (CLI) | payer BC, MEDICARE, SELFPAY ==
[2025-03-29 13:57] LABS: Add Manual Diff / Slide Review NO; Hematocrit 37.7 % (36-46); Hemoglobin 12.9 g/dL (12.0-16.0); Lymphocytes Absolute Auto 1900 /uL (1100-4500); Mean Corpuscular HGB Conc 34.2 % (30-36); Mean Corpuscular Hemoglobin 28.9 PG (26-34); Mean Corpuscular Volume 84.7 fL (80-100); Platelet Count 281 X10^3/uL (150-400)
[2025-03-29 14:09] LABS: Alanine Aminotransferase 23 IU/L (<35); Albumin 4.5 g/dL (3.5-5.0); Albumin Globulin Ratio 1.7 (1.0-2.8); Alkaline Phosphatase 56 U/L (38-126); Blood Urea Nitrogen 16 mg/dL (7-17); Calcium 9.3 mg/dL (8.4-10.2); Carbon Dioxide 26 mmol/L (22-32); Chloride 99 mmol/L (98-107); Cholesterol 158 mg/dL (140-199); Estimated Glomerular Filt Rate > 60 mL/min (>60); Globulin 2.6 g/dL (1.7-4.1); Glucose 85 mg/dL (70-99); HDL Cholesterol 85 mg/dL (40-60); HEMOLYSIS < 15 (0-50); Potassium 4.1 mmol/L (3.4-5.1); Sodium 134 mmol/L (137-145); Total Protein 7.1 g/dL (6.3-8.2); Triglycerides 115 mg/dL (35-150)
[2025-03-29 14:42] LABS: Thyroid Stimulating Hormone 1.77 uIU/mL (0.47-4.68)
== END ==
PROVIDERS: PCP Family Medicine; Referring Provider Family Medicine; Visit Provider Family Medicine
DX: E78.2 Mixed hyperlipidemia (principal); E03.9 Hypothyroidism, unspecified; E78.1 Pure hyperglyceridemia
CPT/HCPCS: 80053; 80061; 84443; 85025

== ENCOUNTER → 2025-03-29 14:08 | Outpatient (CLI) | payer BC, MEDICARE, SELFPAY ==
--- NOTE | 2025-03-29 14:21 | EKG_ITS ---
[address] [address] Test Date: 2025-03-29 Pat Name: Reny Lipscomb Department: [facility] Room: Gender: Female Sandwich Hand: PRISCILLA : 1960 Requested By: Order Number: [id number] Reading MD: Dash Lujan MD Measurements Intervals [place] Rate: 67 P: 8 WY: 150 QRS: 66 QRSD: 84 T: 50 QT: 416 QTc: 439 Interpretive Statements Normal sinus rhythm Electronically Signed On 03-29-2025 16:27:30 PDT by Dash Lujan MD
== END ==
PROVIDERS: PCP Family Medicine; Referring Provider Family Medicine; Visit Provider Family Medicine
DX: Z79.899 Other long term (current) drug therapy (principal); E78.2 Mixed hyperlipidemia; E03.9 Hypothyroidism, unspecified; E78.1 Pure hyperglyceridemia
CPT/HCPCS: 80053; 80061; 84443; 85025; 93005; 93010

== ENCOUNTER → 2025-06-09 15:47 | Outpatient (CLI) | payer BC, MEDICARE, SELFPAY ==
--- NOTE | 2025-06-09 15:49 | DI.MRI.S_ITS ---
PROCEDURE: MR TMJ WO CON INDICATIONS: Arthralgia of bilateral temporomandibular joint TECHNIQUE: Axial T1 spin echo, coronal and sagittal PD fast spin echo through the temporomandibular joints, in both the closed- and open-mouth positions. COMPARISON: [facility], MR, MR TMJ WO CON, 05/31/2020, 13:45. FINDINGS: Image quality: Excellent. Right: Joint is normally aligned on closed and open-mouth positioning. Articular disk demonstrates degenerative changes previously noted.. No bony erosions or osteophytes. Left: Joint is normally aligned on closed and open-mouth positioning. Articular disk demonstrates active change as previously noted.. No bony erosions or osteophytes. IMPRESSION: Relatively stable interval exam demonstrate degenerative change of the articular disc bilaterally. Dictated by: Mariposa Rodriguez M.D. on 06/11/2025 at 20:42 Approved by: Mariposa Rodriguez M.D. on 06/11/2025 at 20:44
== END ==
LOC: MRI 15:48
PROVIDERS: PCP Family Medicine; Referring Provider Family Medicine; Visit Provider Dentist Oral and Maxillofacial Surgery
DX: M26.623 Arthralgia of bilateral temporomandibular joint (principal); M26.69 Other specified disorders of temporomandibular joint
CPT/HCPCS: 70336